=== PATIENT | female | born 1990 | race Caucasian/White ===

== ENCOUNTER 2016-09-23 18:10 | Emergency (ER) | payer OTHER ==
--- NOTE | 2016-09-23 18:24 | PDOC ---
Rapid Medical Evaluation Chief Complaint: Pain Time Seen by Provider: 09/23/16 18:22 Medical Evaluation: Allergies Allergy/AdvReac Type Severity Reaction Status Date / Time No Known Allergies Allergy Verified 09/23/16 18:22 09/23/16 18:23 I have performed a brief in-person evaluation of this patient. The patient presents with a chief complaint of: abd cramping, nausea, + test Pertinent physical exam findings: soft, nt, nd abd I have ordered the following:cbc, cmp, u-hcg, beta-hcg, The patient will proceed to the ED for further evaluation.
[2016-09-23 18:25] VITALS: BP 113/78; PULSE 79; TEMP 97.9; BMI 21.7
[2016-09-23 19:33] LABS: BASOPHIL 0.3 % (0-2.0); EOSINOPHIL 0.9 % (0-4.5); MCHC 33.9 g/dl (32.0-36.0); MEAN CELL VOLUME 88.6 fl (80-96); MEAN PLT VOLUME 8.5 fl (7.5-11.1); NEUTROPHILS 56.2 % (42.8-82.8); PLATELET COUNT 273 K/MM3 (134-434); WHITE BLOOD COUNT 6.9 K/mm3 (4.0-10.0)
[2016-09-23 19:56] LABS: ALBUMIN 3.7 g/dl (3.4-5.0); ANION GAP 6 (8-16); BILIRUBIN,TOTAL 0.3 mg/dL (0.2-1.0); CALCIUM 8.5 mg/dL (8.5-10.1); CO2 29 mmol/L (21-32); CREATININE 0.5 mg/dL (0.55-1.02); GLUCOSE,RANDOM 103 mg/dL (74-106); SGOT/AST 11 U/L (15-37); SGPT/ALT 14 U/L (12-78); TOT PROT 7.2 g/dl (6.4-8.2)
[2016-09-23 20:11] LABS: ALK PHOS 112 U/L (45-117)
--- NOTE | 2016-09-23 22:14 | PDOC ---
History of Present Illness - General Chief Complaint: Pain, Acute Stated Complaint: ABDOMINAL PAIN Time Seen by Provider: 09/23/16 18:22 History Source: Patient Exam Limitations: No Limitations - History of Present Illness Timing/Duration: 1 week Severity: mild Associated Symptoms: reports: denies symptoms Past History - Travel Traveled outside of the country in the last 30 days: No Close contact w/someone who was outside of country & ill: No - Past Medical History Allergies/Adverse Reactions: Allergies Allergy/AdvReac Type Severity Reaction Status Date / Time No Known Allergies Allergy Verified 09/23/16 18:22 Home Medications: Ambulatory Orders Ibuprofen [Motrin -] 800 mg PO Q6H #30 tablet 11/17/15 Anemia: No Asthma: No Cancer: No Cardiac Disorders: No Diabetes: No Disorders: Yes (CHRONIC UTI) HTN: No Hypercholesterolemia: No Kidney Stones: Yes Seizures: No Thyroid Disease: No - Immunization History Immunization Up to Date: Yes - Psycho/Social/Smoking Cessation Hx Anxiety: No Suicidal Ideation: No Smoking Status: No Smoking History: Never smoked Have you smoked in the past 12 months: No Number of Cigarettes Smoked Daily: 0 Hx Alcohol Use: No Drug/Substance Use Hx: No Substance Use Type: None Hx Substance Use Treatment: No Review of Systems - Review of Systems Able to Perform ROS?: Yes Comments:: 09/23/16 22:11 CONSTITUTIONAL: Absent: fever, chills, diaphoresis, generalized weakness, malaise, loss of appetite HEENT: Absent: rhinorrhea, nasal congestion, throat pain, throat swelling, difficulty swallowing, mouth swelling, ear pain, eye pain, visual Changes CARDIOVASCULAR: Absent: chest pain, loss of consciousness, palpitations, irregular heart rate, peripheral edema RESPIRATORY: Absent: cough, shortness of breath, dyspnea with exertion, orthopnea, wheezing, stridor, hemoptysis GASTROINTESTINAL: +Pelvic cramping Absent: abdominal pain, abdominal distension, nausea, vomiting, diarrhea, constipation, melena, hematochezia GENITOURINARY: Absent: dysuria, frequency, urgency, hesitancy, hematuria, flank pain, genital pain MUSCULOSKELETAL: Absent: myalgia, arthralgia, joint swelling SKIN: Absent: rash, itching, pallor HEMATOLOGIC/IMMUNOLOGIC: Absent: easy bleeding, easy bruising, lymphadenopathy, frequent infections ENDOCRINE: Absent: unexplained weight gain, unexplained weight loss, heat intolerance, cold intolerance NEUROLOGIC: Absent: headache, focal weakness or paresthesias, dizziness, unsteady gait, seizure, mental status changes, bladder or bowel incontinence PSYCHIATRIC: Absent: anxiety, depression, suicidal or homicidal ideation, hallucinations. Is the patient limited Italian proficient: No *Physical Exam - Vital Signs Last Vital Signs Temp Pulse Resp BP Pulse Ox 97.9 F 79 19 113/78 100 09/23/16 18:22 09/23/16 18:22 09/23/16 18:22 09/23/16 18:22 09/23/16 18:22 - Physical Exam Comments: 09/23/16 22:12 GENERAL: Well developed, well nourished. Awake and alert. No acute distress. HEENT: Normocephalic, atraumatic. PERRLA, EOMI. No conjunctival pallor. Sclera are non- icteric. Moist mucous membranes. Oropharynx is clear. NECK: Supple. Full ROM. No JVD. Carotid pulses 2+ and symmetric, without bruits. No thyromegaly. No lymphadenopathy. CARDIOVASCULAR: Regular rate and rhythm. No murmurs, rubs, or gallops. Distal pulses are 2+ and symmetric. PULMONARY: No evidence of respiratory distress. Lungs clear to auscultation bilaterally. No wheezing, rales or rhonchi. ABDOMINAL: Soft. Non-tender. Non-distended. No rebound or guarding. No organomegaly. Normoactive bowel sounds. MUSCULOSKELETAL Normal range of motion at all joints. No bony deformities or tenderness. No CVA tenderness. EXTREMITIES: No cyanosis. No clubbing. No edema. No calf tenderness. SKIN: Warm and dry. Normal capillary refill. No rashes. No jaundice. NEUROLOGICAL: Alert, awake, appropriate. Cranial nerves 2-12 intact. No deficits to light touch and temperature in face, upper extremities and lower extremities. No motor deficits in the in face, upper extremities and lower extremities. Normoreflexic in the upper and lower extremities. Normal speech. Toes are down- going bilaterally. Gait is normal without ataxia. PSYCHIATRIC: Cooperative. Good eye contact. Appropriate mood and affect. Pelvic: External genitalia normal without lesions. Vaginal vault is clear without blood or discharge. Cervix is long and closed. ED Treatment Course - LABORATORY CBC & Chemistry Diagram: 09/23/16 19:20 09/23/16 19:20 - ADDITIONAL ORDERS Additional order review: Laboratory Results 09/23/16 09/23/16 19:20 19:20 Sodium 139 Potassium 3.7 Chloride 104 Carbon Dioxide 29 Anion Gap 6 L BUN 12 Creatinine 0.5 L Creat Clearance w eGFR > 60 Random Glucose 103 Calcium 8.5 Total Bilirubin 0.3 D AST 11 L D ALT 14 D Alkaline Phosphatase 112 D Total Protein 7.2 Albumin 3.7 Beta HCG, Quant 12636.6 Urine HCG, Qual Positive 09/23/16 19:20 RBC 4.16 MCV 88.6 MCHC 33.9 RDW 13.0 MPV 8.5 Neutrophils % 56.2 Lymphocytes % 34.7 Monocytes % 7.9 Eosinophils % 0.9 Basophils % 0.3 *DC/Admit/Observation/Transfer Diagnosis at time of Disposition: Threatened - Discharge Dispostion Condition at time of disposition: Stable - Referrals Referrals: Jaguar Chavez [Primary Care Provider] - Nubia Benítez MD [Staff Physician] - - Patient Instructions Printed Discharge Instructions: DI for Threatened Additional Instructions: Pelvic rest Tylenol as needed for pain Follow up with your Obstetric or the one listed on your discharge Return to the ER for severe/persistent/worsening symptoms, vaginal bleed As discussed in length, You a preliminary transvaginal ultrasound this evening shows an estimated gestation age of approximately 5 weeks and 4 days but a heart rate was not detected. Sometimes, this could be due to an early . It is strongly advisable for you to return in 48 hours for a repeat beta [place] [address].6 LMP 08/10/2016 [id number] Progress Note - Progress Note Progress Note: LMP 08/10/2016 25-year-old female presents to the emergency department complaining of lower pelvic cramping times one week. Discomfort is described as 3/10 nonradiating intermittent cramping with nausea but denies any fever, chills, vomiting, chest pain, shortness of breath, abdominal pains, vaginal bleed, flank pains or urinary symptoms: Frequency/urgency/hesitancy, hematuria. Patient states she took a home tests 2 days ago and discovered that she was .
== END 2016-09-23 22:53 | disposition home or self-care (01) ==
LOC: JER 18:10
DX: O20.0 Threatened abortion (principal); Z3A.01 Less than 8 weeks gestation of pregnancy
CPT/HCPCS: 36415; 76801-TC; 80053; 84702; 84703; 85025; 99282-25

== ENCOUNTER 2016-11-09 16:18 | Emergency (ER) | payer OTHER ==
[2016-11-09 16:22] VITALS: BMI 21.3
--- NOTE | 2016-11-09 16:48 | PDOC ---
History of Present Illness - History of Present Illness Initial Comments: 11/09/16 17:23 Patient is a 25 year old female (12 weeks) with significant medical hx of nephrolithiasis s/p lithotripsy (2013) who is presenting to the ED with one day of shortness of breath, headache, and palpitations. The patient states that she had a sudden onset of her symptoms around 1:30 PM today accompanied with severe nausea. She denies any fevers, chills, vomiting, diarrhea, dysuria, loss of consciousness, and chest pain. The patient has a secondary complaint of suprapubic pain that has been ongoing since the start of her but denies any vaginal bleeding or discharge. The patients is being followed at [facility]. <Jillian Ambrosio - Last Filed: 11/09/16 18:36> <Raquel Walters - Last Filed: 11/09/16 21:47> - General Chief Complaint: Pain Stated Complaint: STOMACH PAIN/12 WKS Time Seen by Provider: 11/09/16 16:38 Past History <Jillian Ambrosio - Last Filed: 11/09/16 18:36> - Past Medical History Anemia: No Asthma: No Cancer: No Cardiac Disorders: No Diabetes: No Disorders: Yes (CHRONIC UTI) HTN: No Hypercholesterolemia: No Kidney Stones: Yes Seizures: No Thyroid Disease: No - Immunization History Immunization Up to Date: Yes - Psycho/Social/Smoking Cessation Hx Anxiety: No Suicidal Ideation: No Smoking Status: No Smoking History: Never smoked Have you smoked in the past 12 months: No Number of Cigarettes Smoked Daily: 0 Information on smoking cessation initiated: No Hx Alcohol Use: No Drug/Substance Use Hx: No Substance Use Type: None Hx Substance Use Treatment: No <Raquel Walters - Last Filed: 11/09/16 21:47> - Past Medical History Allergies/Adverse Reactions: Allergies Allergy/AdvReac Type Severity Reaction Status Date / Time No Known Allergies Allergy Verified 11/09/16 16:22 Home Medications: Ambulatory Orders Vits #93/Iron Fum/FA [ Formula Tablet] 1 each PO DAILY Review of Systems - Review of Systems Comments:: 11/09/16 17:24 CONSTITUTIONAL: Absent: fever, chills, diaphoresis, generalized weakness, malaise, loss of appetite HEENT: Absent: rhinorrhea, nasal congestion, throat pain, throat swelling, difficulty swallowing, mouth swelling, ear pain, eye pain, visual changes CARDIOVASCULAR: Present: palpitations Absent: chest pain, syncope, irregular heart rate, lightheadedness, peripheral edema RESPIRATORY: Present: shortness of breath Absent: cough, dyspnea with exertion, orthopnea, wheezing, stridor, hemoptysis GASTROINTESTINAL: Present: nausea, suprapubic pain Absent: abdominal distension, vomiting, diarrhea, constipation, melena, hematochezia GENITOURINARY: Absent: dysuria, frequency, urgency, hesitancy, hematuria, flank pain, genital pain MUSCULOSKELETAL: Absent: myalgia, arthralgia, joint swelling SKIN: Absent: rash, itching, pallor HEMATOLOGIC/IMMUNOLOGIC: Absent: easy bleeding, easy bruising, lymphadenopathy, frequent infections ENDOCRINE: Absent: unexplained weight gain, unexplained weight loss, heat intolerance, cold intolerance NEUROLOGIC: Present: headache Absent: focal weakness or paresthesia, dizziness, unsteady gait, seizure, mental status changes, bladder or bowel incontinence. PSYCHIATRIC: Absent: anxiety, depression, suicidal or homicidal ideation, hallucinations <Jillian Ambrosio - Last Filed: 11/09/16 18:36> *Physical Exam - Vital Signs Last Vital Signs Temp Pulse Resp BP Pulse Ox 98 F 81 18 109/50 98 11/09/16 16:19 11/09/16 16:19 11/09/16 16:19 11/09/16 16:19 11/09/16 16:19 - Physical Exam Comments: 11/09/16 17:50 GENERAL: Well developed, well nourished. Awake and alert. No acute distress. HEENT: Normocephalic, atraumatic. PERRLA, EOMI. No conjunctival pallor. Sclera are non- icteric. Moist mucous membranes. Oropharynx is clear. NECK: Supple. Full ROM. No JVD. Carotid pulses 2+ and symmetric, without bruits. No thyromegaly. No lymphadenopathy. CARDIOVASCULAR: Regular rate and rhythm. No murmurs, rubs, or gallops. Distal pulses are 2+ and symmetric. PULMONARY: No evidence of respiratory distress. Lungs clear to auscultation bilaterally. No wheezing, rales or rhonchi. ABDOMINAL: Soft. Suprapubic tenderness. Non-distended. No rebound or guarding. No organomegaly. Normoactive bowel sounds. MUSCULOSKELETAL: Normal range of motion at all joints. No bony deformities or tenderness. No CVA tenderness. EXTREMITIES: No cyanosis. No clubbing. No edema. No calf tenderness. SKIN: Warm and dry. Normal capillary refill. No rashes. No jaundice. NEUROLOGICAL: Alert, awake, appropriate. Cranial nerves 2-12 intact. Normal speech. Gait is normal without ataxia. PSYCHIATRIC: Cooperative. Good eye contact. Appropriate mood and affect. <Jillian Ambrosio - Last Filed: 11/09/16 18:36> - Vital Signs Last Vital Signs Temp Pulse Resp BP Pulse Ox 98 F 81 18 109/50 98 11/09/16 16:19 11/09/16 16:19 11/09/16 16:19 11/09/16 16:19 11/09/16 16:19 <Raquel Walters - Last Filed: 11/09/16 21:47> Heart Score/ECG Review #1 11/09/16 18:06 Sinus rhythm at 73 bpm with short SC with premature atrial complexes Otherwise normal ECG <Jillian Ambrosio - Last Filed: 11/09/16 18:36> ED Treatment Course - ADDITIONAL ORDERS Additional order review: Laboratory Results 11/09/16 17:00 Urine Color Yellow Urine Appearance Slcloudy Urine pH 6.0 Ur Specific [place] 1.017 Urine Protein Negative Urine Glucose (UA) Negative Urine Ketones Negative Urine Blood Negative Urine Nitrite Negative Urine Bilirubin Negative Urine Urobilinogen Negative Ur Leukocyte Esterase 1+ H - RADIOLOGY Radiograph Interpretation: 11/09/16 18:37 Obstetrical US Impression: Single live intrauterine , as described above with estimated gestational age of 12 weeks. Reported By: Leonie Mckeon MD <Jillian Ambrosio - Last Filed: 11/09/16 18:36> - LABORATORY CBC & Chemistry Diagram: 11/09/16 18:15 11/09/16 18:15 <Raquel Walters - Last Filed: 11/09/16 21:47> Medical Decision Making - Medical Decision Making 11/09/16 17:01 25 yo female reports 12 week Today she had an episode of sudden palpitaions ,sob.nausea,dizziness -ekj showed PAC and then accelerated junctional rhythm on her ekg -spoke w [facility] and cardiology adn they requested transfer. -FAMILY REQUESTED [facility] -she has c/o pelvic pain -pelvic US showed SL IUP 12 weeks with good heart tones -no vag bleeding and no flank pain PMH kidney stones s/p lithotripsy several years ago Dr Drake - 11/09/16 21:22 spoke with patient care technician who accepted pt for transfer to [facility] adult ER , cardiology attending accepting is Dr No 11/09/16 21:37 -pt signed consent for transfer <Raquel Walters - Last Filed: 11/09/16 21:47> *DC/Admit/Observation/Transfer - Attestations Scribe Attestion: 11/09/16 17:51 Documentation prepared by Jillian Ambrosio, acting as medical office receptionist assistant for Raquel Walters MD. <Jillian Ambrosio - Last Filed: 11/09/16 18:36> - Transfer to Acute Care Facility Receiving Facility: [facility]. Accepting Physician:: DR NO <Raquel Walters - Last Filed: 11/09/16 21:47> Diagnosis at time of Disposition: Heart palpitations, Accelerated atrioventricular junctional rhythm Qualifiers: Weeks of gestation: 12 weeks Qualified Code(s): Z3A.12 - 12 weeks gestation of - Discharge Dispostion Disposition: TRANSFER ACUTE CARE/OTHER HOSP - Referrals Referrals: Jaguar Chavez [Primary Care Provider] - - Patient Instructions
[2016-11-09 17:12] LABS: URINE APPEARANCE SLCLOUDY; URINE BILIRUBIN NEGATIVE (NEGATIVE); URINE BLOOD NEGATIVE (NEGATIVE); URINE COLOR YELLOW; URINE GLUCOSE (UA) NEGATIVE (NEGATIVE); URINE KETONE NEGATIVE (NEGATIVE); URINE NITRITE NEGATIVE (NEGATIVE); URINE PROTEIN NEGATIVE (NEGATIVE); URINE UROBILINOGEN NEGATIVE E.U./dl (0.2-1.0)
[2016-11-09 17:18] LABS: URINE LEUK ESTERASE 1+ (NEGATIVE)
[2016-11-09 17:22] LABS: URINE MUCUS RARE; URINE RBC 4 /hpf (0-3); URINE WBC 7 /hpf (3-5)
[2016-11-09 18:42] LABS: BASOPHIL 0.5 % (0-2.0); EOSINOPHIL 0.5 % (0-4.5); MCH 30.2 pg (25.7-33.7); MCHC 33.8 g/dl (32.0-36.0); MEAN CELL VOLUME 89.2 fl (80-96); MEAN PLT VOLUME 8.6 fl (7.5-11.1); PLATELET COUNT 266 K/MM3 (134-434); RDW 13.8 % (11.6-15.6); WHITE BLOOD COUNT 7.6 K/mm3 (4.0-10.0)
[2016-11-09 19:10] LABS: ALBUMIN 3.5 g/dl (3.4-5.0); ANION GAP 7 (8-16); CALCIUM 8.6 mg/dL (8.5-10.1); CO2 26 mmol/L (21-32); GLUCOSE,RANDOM 74 mg/dL (74-106); SGPT/ALT 24 U/L (12-78)
[2016-11-09 19:13] LABS: ALK PHOS 84 U/L (45-117); BILIRUBIN,TOTAL 0.2 mg/dL (0.2-1.0); CREATININE 0.3 mg/dL (0.55-1.02)
[2016-11-09 19:16] LABS: SGOT/AST 23 U/L (15-37)
[2016-11-09 23:00] VITALS: BP 114/57; PULSE 80; TEMP 98.3
--- NOTE | 2016-11-10 08:12 | EKG ---
Test Reason : Blood Pressure : / mmHG Vent. Rate : 071 BPM Atrial Rate : 071 BPM P-R Int : 000 ms QRS Dur : 080 ms QT Int : 392 ms P-R-T Axes : 000 053 039 degrees QTc Int : 425 ms SINUS RHYTHM WITH PREMATURE ATRIAL COMPLEXES ABNORMAL ECG WHEN COMPARED WITH ECG OF 09-NOV-2016 17:10, NO SIGNIFICANT CHANGE WAS FOUND Confirmed by RONALD LAWRENCE MD ([id number]) on 11/10/2016 8:11:52 AM Referred By: Confirmed By:RONALD LAWRENCE MD
--- NOTE | 2016-11-10 08:13 | EKG ---
Test Reason : Blood Pressure : / mmHG Vent. Rate : 073 BPM Atrial Rate : 064 BPM P-R Int : 094 ms QRS Dur : 086 ms QT Int : 396 ms P-R-T Axes : 026 035 048 degrees QTc Int : 436 ms SINUS RHYTHM WITH SHORT SC WITH PREMATURE ATRIAL COMPLEXES OTHERWISE NORMAL ECG NO PREVIOUS ECGS AVAILABLE Confirmed by HOWARD FRIEND, RONALD ([id number]) on 11/10/2016 8:12:49 AM Referred By: Confirmed By:RONALD LAWRENCE MD
== END 2016-11-09 23:00 | disposition short-term general hospital (02) ==
LOC: JER 16:18
DX: O99.411 Diseases of the circulatory system complicating pregnancy, first trimester (principal); I49.8 Other specified cardiac arrhythmias; Z3A.12 12 weeks gestation of pregnancy
CPT/HCPCS: 36415; 76801-TC; 80053; 81003; 81015; 83735; 85025; 87086; 87186; 93005; 93010; 99284-25

== ENCOUNTER 2017-05-26 14:14 | Inpatient (IN) | payer OTHER ==
[2017-05-26] MEDS ORDERED: DINOPROSTONE 10 MG VAGINAL SUPPOSITORY VG ONE (14:30)
[2017-05-26] MEDS ORDERED: DEXTROSE 5%-LACTATED RINGERS 1,000 ML IV SCH (14:30)
[2017-05-26 16:25] LABS: BASOPHIL 0.5 % (0-2.0); EOSINOPHIL 0.3 % (0-4.5); MCH 29.7 pg (25.7-33.7); MCHC 33.9 g/dl (32.0-36.0); MEAN CELL VOLUME 87.6 fl (80-96); MEAN PLT VOLUME 9.7 fl (7.5-11.1); NEUTROPHILS 68.6 % (42.8-82.8); PLATELET COUNT 225 K/MM3 (134-434); RDW 13.9 % (11.6-15.6); WHITE BLOOD COUNT 7.4 K/mm3 (4.0-10.0)
[2017-05-26 16:38] LABS: INR 0.96 (0.82-1.09); PROTHROMBIN TIME (PATIENT) 10.8 SEC (9.98-11.88)
[2017-05-26 16:40] LABS: ACTIVATED PTT 25.8 SECONDS (26.9-34.4)
[2017-05-26 16:45] LABS: ANION GAP 11 (8-16); CALCIUM 8.4 mg/dL (8.5-10.1); CO2 23 mmol/L (21-32); CREATININE 0.5 mg/dL (0.55-1.02); GLUCOSE,RANDOM 71 mg/dL (74-106)
[2017-05-26 17:02] VITALS: BMI 26.3
--- NOTE | 2017-05-26 19:48 | HP ---
Past Medical History - Primary Care Physician PCP:: Toño Hernandez - Admission Chief Complaint: 41 weeks, for cervidil induction History of Present Illness: 26 yo , 41.1 weeks, requesting induction of labor, rba discussed , cx closed 25 vx -2 mi, fhr cat 1 History Source: Patient Limitations to Obtaining History: No Limitations - Past Medical History Renal/: Yes: Renal Calculi ...: 2 ...Para: 1 ...Term: 1 ...: 0 ...Spon : 0 ...Induced : 0 ...Multiple Gestation: 0 ...LMP: 08/11/16 ... Weeks Gestation by Dates: 41.1 ...EDC by Dates: 05/18/17 ...EDC by Sono: 05/18/17 - Past Surgical History Past Surgical History: Yes: None Hx Myomectomy: No Hx Transabdominal Cerclage: No - Smoking History Smoking history: Never smoked Have you smoked in the past 12 months: No Aproximately how many cigarettes per day: 0 - Alcohol/Substance Use Hx Alcohol Use: No History of Substance Use: reports: None - Social History Usual Living Arrangement: Yes: With Spouse ADL: Independent History of Recent Travel: No Home Medications - Allergies Allergies/Adverse Reactions: Allergies Allergy/AdvReac Type Severity Reaction Status Date / Time No Known Allergies Allergy Verified 05/26/17 14:51 - Home Medications Home Medications: Ambulatory Orders Vits #93/Iron Fum/FA [ Formula Tablet] 1 each PO DAILY Ferrous Sulfate [Feosol] 1 tablet PO DAILY 04/04/17 Review of Systems - Review of Systems Constitutional: reports: No Symptoms Eyes: reports: No Symptoms HENT: reports: No Symptoms Neck: reports: No Symptoms Cardiovascular: reports: No Symptoms Respiratory: reports: No Symptoms Gastrointestinal: reports: No Symptoms Genitourinary: reports: No Symptoms Breasts: reports: No Symptoms Reported Musculoskeletal: reports: No Symptoms Integumentary: reports: No Symptoms Neurological: reports: No Symptoms Endocrine: reports: No Symptoms Hematology/Lymphatic: reports: No Symptoms Psychiatric: reports: No Symptoms Physical Exam - Maternity Vital Signs: Vital Signs Temperature 98.1 F 05/26/17 17:57 Pulse Rate 88 05/26/17 19:00 Respiratory Rate 20 05/26/17 19:00 Blood Pressure 126/62 05/26/17 19:00 O2 Sat by Pulse Oximetry (%) Constitutional: Yes: Well Nourished, No Distress, Calm Eyes: Yes: WNL, Conjunctiva Clear, EOM Intact HENT: Yes: WNL, Atraumatic, Normocephalic Neck: Yes: WNL, Supple, Trachea Midline Cardiovascular: Yes: WNL, Regular Rate and Rhythm Breast(s): Yes: WNL - Abdominal Exam/OB Fundal Height: 40 Number of Fetuses: Single Presentation: Vertex Contractions: No Intensity: Unaware Monitor Mode: External Heart Rate Location: [facility] Category: I Accelerations: Uniform Decelerations: None - Vaginal Exam/OB Vaginal Bleediing: No Speculum Exam: No Dilatation (cm): closed Effacement (%): 25 Amniotic Membrane Status: Intact Presentation: Vertex/Position Station: -2 - Physical Exam Musculoskeletal: Yes: WNL Extremities: Yes: WNL Edema: LLE: Trace, RLE: Trace Deep Tendon Reflex Grade: Normal +2 ...Motor Strength: WNL Psychiatric: Yes: WNL - Labs Lab Results: CBC, BMP 05/26/17 15:30 05/26/17 15:30 Hemorrhage Risk Assessment - Risk Factors Medium Risk Factors: Yes: None High Risk Factors: Yes: None Risk Score: 1 Risk Level: Medium Risk Problem List - Problems (1) with 41 completed weeks gestation Code(s): Z3A.41 - 41 WEEKS GESTATION OF (2) Elective induction of labor planned Code(s): FKC7065 - Assessment/Plan plan admit, cervidil induction, risks discussed
[2017-05-26] MEDS ORDERED: BUTORPHANOL TARTRATE 1 MG/ML VIAL IVPUSH ONE (23:35)
[2017-05-26] MEDS ORDERED: PROMETHAZINE HCL 25 MG/1 ML VIAL IVPUSH ONE (23:35)
--- NOTE | 2017-05-27 01:39 | PN ---
Progress Note (short form) - Note Progress Note: cx 2 cm. 70 vx -2 mi, fhr cat 1 contraction q 3 min, wants pain meds Problem List - Problems (1) with 41 completed weeks gestation Code(s): Z3A.41 - 41 WEEKS GESTATION OF (2) Elective induction of labor planned Code(s): [id number] -
[2017-05-27] MEDS ORDERED: OXYTOCIN 15 UNITS/ LR 250 ML 15 UNIT/250 ML INFUS.BAG IVPB SCH (04:00)
[2017-05-27] MEDS ORDERED: ELECTROLYTE-148 SOLN 1,000 ML IV SCH (04:30)
[2017-05-27] MEDS: FENTANYL/BUPIVACAINE/NS/PF - PCEA - 50 ML DISP.SYRIN EP SCH (05:00)
[2017-05-27] MEDS ORDERED: METHYLERGONOVINE MALEATE 0.2 MG/1 ML AMP IM PRN (08:38)
[2017-05-27] MEDS ORDERED: BISACODYL 10 MG SUPP.RECT RC PRN (08:38)
[2017-05-27] MEDS ORDERED: BENZOCAINE 28 GM HEMORRHOIDAL OINTMENT TP PRN (08:38)
[2017-05-27] MEDS ORDERED: WITCH HAZEL 50% (TUCKS) 40 PAD/JAR PAD TP PRN (08:38)
[2017-05-27] MEDS ORDERED: BENZOCAINE 20% 57 GM BOTTLE TP PRN (08:38)
[2017-05-27] MEDS ORDERED: D5W-LR W/ 20 UNITS OXYTOCIN 20 UNIT/1,000 ML INFUS.BAG IV SCH (08:45)
[2017-05-27 09:13] LABS: ARTERIAL BLOOD GAS BASE EXCESS -7.5 meq/l (-2-2); ARTERIAL BLOOD GAS HCO3 22.8 meq/L (22-26)
[2017-05-27] MEDS: IBUPROFEN 600 MG TABLET (FP) PO PRN ×3 (09:16→19:32)
[2017-05-27] MEDS: ACETAMINOPHEN 325 MG TABLET (FP) PO PRN ×3 (09:16→19:33)
[2017-05-27 09:20] LABS: ARTERIAL BLOOD GAS pH 7.16 (7.35-7.45)
[2017-05-27 09:21] LABS: ARTERIAL BLD GAS O2 SATURATION 45.1 % (90-98.9); ARTERIAL BLOOD GAS PO2 28.7 mmHg (80-100)
[2017-05-27 09:32] LABS: VENOUS BLOOD GAS HCO3 19.4 meq/L (19-25); VENOUS PH 7.33 (7.32-7.42)
[2017-05-27] MEDS: FERROUS SO4 325 MG TABLET (FP) PO SCH ×2 (11:14→21:37)
[2017-05-27] MEDS: PRENATAL VITAMINS W/ FOLIC ACID TABLET (FP) PO SCH (11:14)
[2017-05-27] MEDS ORDERED: SODIUM CHLORIDE 500 ML IV ONE (11:30)
--- NOTE | 2017-05-27 17:05 | PN ---
Progress Note (short form) - Note Progress Note: had fever of 102 , asymptomatic, doubt infection , most likly dehydration vs epidural related temp. will do blood culture, hydration and observation , if spikes again will start antibiotics. Problem List - Problems (1) with 41 completed weeks gestation Code(s): Z3A.41 - 41 WEEKS GESTATION OF (2) Elective induction of labor planned Code(s): OAH5461 -
[2017-05-28] MEDS: ACETAMINOPHEN 325 MG TABLET (FP) PO PRN ×4 (04:14→21:48)
[2017-05-28] MEDS: IBUPROFEN 600 MG TABLET (FP) PO PRN ×4 (04:15→21:47)
[2017-05-28] MEDS: FENTANYL/BUPIVACAINE/NS/PF - PCEA - 50 ML DISP.SYRIN EP SCH (05:40)
[2017-05-28 07:38] LABS: BASOPHIL 0.4 % (0-2.0); EOSINOPHIL 0.3 % (0-4.5); MEAN CELL VOLUME 87.9 fl (80-96); MEAN PLT VOLUME 9.3 fl (7.5-11.1); NEUTROPHILS 86.9 % (42.8-82.8); PLATELET COUNT 167 K/MM3 (134-434); RDW 13.9 % (11.6-15.6); WHITE BLOOD COUNT 15.8 K/mm3 (4.0-10.0)
[2017-05-28] MEDS: FERROUS SO4 325 MG TABLET (FP) PO SCH ×2 (09:41→21:47)
[2017-05-28] MEDS: PRENATAL VITAMINS W/ FOLIC ACID TABLET (FP) PO SCH (09:41)
--- NOTE | 2017-05-28 12:42 | PN ---
Post Progress Note Post Day: 1 Type of Delivery: Vital Signs: Vital Signs Temperature 100.1 F H 05/28/17 11:27 Pulse Rate 78 05/28/17 10:00 Respiratory Rate 20 05/28/17 10:00 Blood Pressure 131/55 05/28/17 10:00 O2 Sat by Pulse Oximetry (%) 100 05/27/17 09:15 Breast Exam: Yes: Soft Uterus: Yes: Fundus Firm, Other (mildly tender) Abdomen/GI: Yes: Abdomen soft Lochia: Yes: Serosa Lochia, amount: Small Extremities: Yes: Calves non-tender Perineum: Yes: Intact Activity: Ambulating - Labs Labs: CBC WBC 15.8 K/mm3 (4.0-10.0) H D 05/28/17 07:06 RBC 3.02 M/mm3 (3.60-5.2) L 05/28/17 07:06 Hgb 8.7 GM/dL (10.7-15.3) L D 05/28/17 07:06 Hct 26.5 % (32.4-45.2) L D 05/28/17 07:06 MCV 87.9 fl (80-96) 05/28/17 07:06 MCH 29.0 pg (25.7-33.7) 05/28/17 07:06 MCHC 33.0 g/dl (32.0-36.0) 05/28/17 07:06 RDW 13.9 % (11.6-15.6) 05/28/17 07:06 Plt Count 167 K/MM3 (134-434) D 05/28/17 07:06 MPV 9.3 fl (7.5-11.1) 05/28/17 07:06 Neutrophils % 86.9 % (42.8-82.8) H D 05/28/17 07:06 Lymphocytes % 5.7 % (8-40) L D 05/28/17 07:06 Monocytes % 6.7 % (3.8-10.2) 05/28/17 07:06 Eosinophils % 0.3 % (0-4.5) 05/28/17 07:06 Basophils % 0.4 % (0-2.0) 05/28/17 07:06 Other Findings, Remarks: right cva tenderness Assessment/Plan Pt PPD#1 s/p . Pt with fever, recently fever chills -will treat for pyelo given flank pain -rpt cultures if spikes again -continue close observation Dr. Saeed
[2017-05-28] MEDS ORDERED: CEFTRIAXONE 1 GM in DEXTROSE 5%-WATER - 100 ML IVPB SCH (12:45)
[2017-05-28] MEDS: CEFTRIAXONE 1 G/50 ML PREMIX 50 ML IVPB SCH (14:48)
[2017-05-28] MEDS ORDERED: SENNOSIDES/DOCUSATE COMBO (SENNA PLUS) TABLET (UD) PO PRN (22:00)
[2017-05-29] MEDS: oxyCODONE HCL 5 MG TABLET PO PRN ×2 (00:50→16:38)
[2017-05-29] MEDS: ACETAMINOPHEN 325 MG TABLET (FP) PO PRN ×4 (02:13→20:21)
[2017-05-29] MEDS: IBUPROFEN 600 MG TABLET (FP) PO PRN ×4 (02:14→20:22)
[2017-05-29] MEDS: FERROUS SO4 325 MG TABLET (FP) PO SCH ×2 (09:55→22:14)
[2017-05-29] MEDS: PRENATAL VITAMINS W/ FOLIC ACID TABLET (FP) PO SCH (09:56)
[2017-05-29] MEDS ORDERED: cefTRIAXone 1 GM/50 ML BAG (PRE-DOCKED) IVPB SCH (10:00)
[2017-05-29] MEDS ORDERED: CEFTRIAXONE 1 GM/50 ML PREMIX IVPB SCH (10:00)
[2017-05-29] MEDS: CEFTRIAXONE 1 G/50 ML PREMIX 50 ML IVPB SCH (10:49)
--- NOTE | 2017-05-29 16:17 | PN ---
Post Progress Note Post Day: 2 Type of Delivery: Vital Signs: Vital Signs Temperature 98.3 F 05/29/17 14:00 Pulse Rate 70 05/29/17 14:00 Respiratory Rate 20 05/29/17 14:00 Blood Pressure 119/55 05/29/17 14:00 O2 Sat by Pulse Oximetry (%) 100 05/29/17 09:00 Breast Exam: Yes: Soft Uterus: Yes: Fundus Firm Abdomen/GI: Yes: Abdomen soft, Tolerating PO Lochia, amount: Small Extremities: Yes: Calves non-tender Perineum: Yes: Intact Activity: Ambulating - Labs Labs: CBC WBC 15.8 K/mm3 (4.0-10.0) H D 05/28/17 07:06 RBC 3.02 M/mm3 (3.60-5.2) L 05/28/17 07:06 Hgb 8.7 GM/dL (10.7-15.3) L D 05/28/17 07:06 Hct 26.5 % (32.4-45.2) L D 05/28/17 07:06 MCV 87.9 fl (80-96) 05/28/17 07:06 MCH 29.0 pg (25.7-33.7) 05/28/17 07:06 MCHC 33.0 g/dl (32.0-36.0) 05/28/17 07:06 RDW 13.9 % (11.6-15.6) 05/28/17 07:06 Plt Count 167 K/MM3 (134-434) D 05/28/17 07:06 MPV 9.3 fl (7.5-11.1) 05/28/17 07:06 Neutrophils % 86.9 % (42.8-82.8) H D 05/28/17 07:06 Lymphocytes % 5.7 % (8-40) L D 05/28/17 07:06 Monocytes % 6.7 % (3.8-10.2) 05/28/17 07:06 Eosinophils % 0.3 % (0-4.5) 05/28/17 07:06 Basophils % 0.4 % (0-2.0) 05/28/17 07:06 Assessment/Plan cx shows e coli continue abx afebril since midnight chceck cbc in am
[2017-05-30] MEDS: oxyCODONE HCL 5 MG TABLET PO PRN ×3 (02:04→14:03)
[2017-05-30 07:54] LABS: BASOPHIL 0.2 % (0-2.0); EOSINOPHIL 0.9 % (0-4.5); MCH 29.1 pg (25.7-33.7); MCHC 33.2 g/dl (32.0-36.0); MEAN CELL VOLUME 87.6 fl (80-96); NEUTROPHILS 73.2 % (42.8-82.8); PLATELET COUNT 209 K/MM3 (134-434); RDW 14.3 % (11.6-15.6)
[2017-05-30] MEDS: ACETAMINOPHEN 325 MG TABLET (FP) PO PRN ×3 (08:13→22:14)
--- NOTE | 2017-05-30 08:59 | PN ---
Post Progress Note - Subjective Subjective: had a 100.6 yesterday at 6pm will observe during the day with possible dc this pm Type of Delivery: Vital Signs: Vital Signs Temperature 98.6 F 05/30/17 08:19 Pulse Rate 73 05/30/17 08:19 Respiratory Rate 20 05/30/17 08:19 Blood Pressure 148/74 05/30/17 08:19 O2 Sat by Pulse Oximetry (%) 100 05/29/17 09:00 - Labs Labs: CBC WBC 7.0 K/mm3 (4.0-10.0) D 05/30/17 07:00 RBC 3.33 M/mm3 (3.60-5.2) L 05/30/17 07:00 Hgb 9.7 GM/dL (10.7-15.3) L D 05/30/17 07:00 Hct 29.2 % (32.4-45.2) L 05/30/17 07:00 MCV 87.6 fl (80-96) 05/30/17 07:00 MCH 29.1 pg (25.7-33.7) 05/30/17 07:00 MCHC 33.2 g/dl (32.0-36.0) 05/30/17 07:00 RDW 14.3 % (11.6-15.6) 05/30/17 07:00 Plt Count 209 K/MM3 (134-434) D 05/30/17 07:00 MPV 9.0 fl (7.5-11.1) 05/30/17 07:00 Neutrophils % 73.2 % (42.8-82.8) 05/30/17 07:00 Lymphocytes % 17.4 % (8-40) D 05/30/17 07:00 Monocytes % 8.3 % (3.8-10.2) 05/30/17 07:00 Eosinophils % 0.9 % (0-4.5) D 05/30/17 07:00 Basophils % 0.2 % (0-2.0) 05/30/17 07:00
[2017-05-30] MEDS: PRENATAL VITAMINS W/ FOLIC ACID TABLET (FP) PO SCH (09:53)
[2017-05-30] MEDS: FERROUS SO4 325 MG TABLET (FP) PO SCH ×2 (09:54→22:17)
[2017-05-30] MEDS: CEFTRIAXONE 1 G/50 ML PREMIX 50 ML IVPB SCH (09:59)
[2017-05-30 11:57] LABS: ALBUMIN 1.8 g/dl (3.4-5.0); ALK PHOS 167 U/L (45-117); ANION GAP 10 (8-16); BILIRUBIN,TOTAL 0.4 mg/dL (0.2-1.0); CALCIUM 7.1 mg/dL (8.5-10.1); CO2 24 mmol/L (21-32); CREATININE 0.4 mg/dL (0.55-1.02); GLUCOSE,RANDOM 82 mg/dL (74-106); SGOT/AST 198 U/L (15-37); SGPT/ALT 88 U/L (12-78); TOT PROT 4.9 g/dl (6.4-8.2)
[2017-05-30] MEDS ORDERED: oxyCODONE HCL 5 MG TABLET ONE (14:02)
--- NOTE | 2017-05-30 16:27 | CONSULT ---
Consultation: REQUESTING PROVIDER: Dr. Hernandez CONSULT REQUEST: We have been asked to medically evaluate this patient for ( fever, cough, flank pain). HISTORY OF PRESENT ILLNESS: Patient is a 26 year old, grava 2, induced at 41 weeks, post day #3. Who was evaluated today for persistent post fever, right flank pain and dry cough with orthopnea. REVIEW OF SYSTEMS: CONSTITUTIONAL: Absent: chills, diaphoresis, generalized weakness, malaise, loss of appetite, weight change HEENT: Absent: rhinorrhea, nasal congestion, difficulty swallowing, mouth swelling, ear pain, eye pain, visual changes CARDIOVASCULAR: Absent: chest pain, syncope, palpitations, irregular heart rate, lightheadedness , peripheral edema RESPIRATORY: Absent: wheezing, stridor, hemoptysis GASTROINTESTINAL: Absent: abdominal pain, abdominal distension, nausea, vomiting, diarrhea, constipation, melena, hematochezia GENITOURINARY: Absent: dysuria, hesitancy, hematuria, flank pain, genital pain MUSCULOSKELETAL: Absent: myalgia, arthralgia, joint swelling, back pain, neck pain SKIN: Absent: rash, itching, pallor HEMATOLOGIC/IMMUNOLOGIC: Absent: easy bleeding, easy bruising, lymphadenopathy, frequent infections ENDOCRINE: Absent: unexplained weight gain, unexplained weight loss, heat intolerance, cold intolerance NEUROLOGIC: Absent: headache, focal weakness or paresthesias, dizziness, unsteady gait, seizure, mental status changes, bladder or bowel incontinence PSYCHIATRIC: Absent: anxiety, depression, suicidal or homicidal ideation, hallucinations. PHYSICAL EXAMINATION Vital Signs - 24 hr 05/29/17 05/29/17 05/29/17 16:50 18:01 22:00 Temperature 101.1 F H 100.6 F H 98.8 F Pulse Rate 84 74 Respiratory 20 20 Rate Blood Pressure 133/63 133/72 05/30/17 05/30/17 05/30/17 01:56 06:00 08:19 Temperature 98.5 F 98.3 F 98.6 F Pulse Rate 71 63 73 Respiratory 18 20 20 Rate Blood Pressure 112/48 145/73 148/74 05/30/17 13:47 Temperature 97.8 F Pulse Rate 69 Respiratory 20 Rate Blood Pressure 148/90 GENERAL: Awake, alert, and fully oriented, in no acute distress. HEAD: Normal with no signs of trauma. EYES: Pupils equal, round and reactive to light, extraocular movements intact, sclera anicteric, conjunctiva clear. No lid lag. EARS, NOSE, THROAT: Ears normal, nares patent, oropharynx clear without exudates. Moist mucous membranes. NECK: Normal range of motion, supple without lymphadenopathy, JVD, or masses. LUNGS: Clear upper lobes bilaterally, diminished air sounds at the bases bilaterally, +dry cough HEART: Regular rate and rhythm, normal S1 and S2 without murmur, rub or gallop. ABDOMEN: Soft, nontender, not distended, normoactive bowel sounds MUSCULOSKELETAL: Normal range of motion at all joints. No bony deformities or tenderness. No CVA tenderness. UPPER EXTREMITIES: trace edema of hand LOWER EXTREMITIES: trace edema on bilateral lower extremities NEUROLOGICAL: Normal speech PSYCHIATRIC: Cooperative. Good eye contact. Appropriate mood and affect. SKIN: Warm, dry, normal turgor, no rashes or lesions noted. Laboratory Results - last 24 hr 05/30/17 05/30/17 07:00 10:35 WBC 7.0 D RBC 3.33 L Hgb 9.7 L D Hct 29.2 L MCV 87.6 MCH 29.1 MCHC 33.2 RDW 14.3 Plt Count 209 D MPV 9.0 Neutrophils % 73.2 Lymphocytes % 17.4 D Monocytes % 8.3 Eosinophils % 0.9 D Basophils % 0.2 Sodium 143 Potassium 3.2 L Chloride 109 H Carbon Dioxide 24 Anion Gap 10 BUN 8 Creatinine 0.4 L Creat Clearance w eGFR > 60 Random Glucose 82 Calcium 7.1 L Total Bilirubin 0.4 D AST 198 H D ALT 88 H D Alkaline Phosphatase 167 H D Total Protein 4.9 L D Albumin 1.8 L D Active Medications Generic Name Dose Route Start Last Admin Trade Name Freq PRN Reason Stop Dose Admin Acetaminophen 650 mg 05/27/17 08:38 05/30/17 14:04 Tylenol - PO 650 mg Q3H PRN Administration PAIN Benzocaine 1 spray 05/27/17 08:38 Americaine 20% [place] - TP PRN PRN PAIN Benzocaine 1 applic 05/27/17 08:38 Americaine Ointment - TP PRN PRN PAIN Bisacodyl 10 mg 05/27/17 08:38 Dulcolax Suppository - RC PRN PRN CONSTIPATION Ferrous Sulfate 325 mg 05/27/17 10:00 05/30/17 09:54 Feosol - PO 325 mg BID KATRINA Administration Oxytocin/Lactated Ringer's 15 unit in 250 mls @ 1 mls/hr 05/27/17 04:00 05/27 08:15 Lactated Ringer+ 15 Units Pitocin IVPB 0 unit/hr ASDIR KATRINA 0 mls/hr Protocol Titration 0.06 UNIT/HR Parenteral Electrolytes 1,000 mls @ 125 mls/hr 05/27/17 04:30 05/27/17 04:30 Plasma-Lyte 148 - IV 125 mls/hr ASDIR KATRINA Administration CEFTRIAXONE 1 G/50 ML PREMIX 50 mls @ 100 mls/hr 05/30/17 10:00 05/30/17 09: 59 Ceftriaxone 1 Gm-D5w Bag IVPB 06/04/17 09:59 100 mls/hr DAILY KATRINA Administration Ibuprofen 600 mg 05/27/17 08:38 05/29/17 20:22 Motrin - PO 600 mg Q4H PRN Administration PAIN Methylergonovine Maleate 0.2 mg 05/27/17 08:38 Methergine Injection - IM Q4H PRN EXCESSIVE BLEEDING (L&D) Multivit/Folic Acid/Iron 1 tab 05/27/17 10:00 05/30/17 09:53 Vitamins (Sjr) - PO 1 tab DAILY KATRINA Administration Senna/Docusate Sodium 2 tablet 05/28/17 22:00 Pericolace - PO HS PRN CONSTIPATION Witch Yanet/Glycerin 1 pad 05/27/17 08:38 Tucks Pads - TP PRN PRN PAIN ASSESSMENT/PLAN: Patient is a 26 year old, grava 2, induced at 41 weeks, post day #3. Who was evaluated today for persistent post fever, right flank pain and dry cough with orthopnea. Imaging: Vascular study, bilateral leg 05/30/2017: No evidence of DVT in both lower extremities Ultrasound/Kidney/renal ultrasound 05/30/2017: Normal sized kidney without hydronephrosis, a 0.7 x 0.5 cm round echogenic lesion on the left kidney is likely a non obstructing calculus, no shadowing right renal calculus identified. Bilateral pleural effusions Chest PA/Lateral 05/30/2017: basilar atelectasis and pleural reaction, prominent mediastinum and clear upper lung arriaga, bones and soft tissue intact. No prior studies to compare ID: Fever, likely secondary to +urine cultures with ecoli Febrile overnight, no fevers since 05/29/17 @ 6pm On Ceftriaxone IV since 05/30, transition to PO Bactrim (sensitive to ecoli) on discharge DVT ruled out with ultrasound Will flu swab now, not vaccinated Monitor labs, fever curve Renal: Nephrolithiasis, acute on chronic Kidney ultrasound suggestive of a 0.7 x 0.5 cm round echogenic lesion on the left kidney is likely a non obstructing calculus Will order CT to further view small renal calculi or for any obstructive stones Currently she is asymptomatic, denies flank pain Defer on pain meds as she is currently lactating NO IVF, appears fluid overloaded, encourage PO intake GI: Elevated ast/alt, acute Likely secondary to fluid volume overload monitor trend Pulmonary: Shortness of breath, resolved dry cough, acute + orthopnea Chest xray as above Tolerating room air Incentive spirometer Monitor fever curve Will ask pulmonary team to evaluate in a.m. if symptoms persist Flu swab now F.E.N. Fluids: tolerating PO, hold off on IVF 2/2 to fluid overload Electrolytes: hypokalemia, repeat labs, follow daily labs Nutrition: regular diet Prophylaxis: DVT: Ambulatory young patient GI: deferred Visit type - Emergency Visit Emergency Visit: Yes ED Registration Date: 05/26/17 Care time: The patient presented to the Emergency Department on the above date and was hospitalized for further evaluation of their emergent condition. - New Patient This patient is new to me today: Yes Date on this admission: 05/30/17 - Critical Care Critical Care patient: No
[2017-05-30] MEDS ORDERED: POTASSIUM CHLORIDE TABS 20 MEQ TABLET.ER (FP) PO ONE (18:00)
--- NOTE | 2017-05-30 19:29 | HOSP ---
Subjective - Review of Symptoms Events since last encounter: Hospitalist Encounter Notified by primary RN of the CTAP suggestive of Pneumonia, Pleural Effusions Patient is currently on Ceftriaxone, will add Azithromycin for pseudomonal coverage for CAP Consults placed for ID and Pulmonary. Physical Examination Vital Signs: Vital Signs Temperature 99.1 F 05/30/17 17:56 Pulse Rate 87 05/30/17 17:56 Respiratory Rate 20 05/30/17 17:56 Blood Pressure 136/73 05/30/17 17:56 O2 Sat by Pulse Oximetry (%) 100 05/29/17 09:00 Labs: CBC, BMP 05/30/17 07:00 05/30/17 16:45 Laboratory Results - last 24 hr 05/30/17 05/30/17 05/30/17 07:00 10:35 16:45 WBC 7.0 D RBC 3.33 L Hgb 9.7 L D Hct 29.2 L MCV 87.6 MCH 29.1 MCHC 33.2 RDW 14.3 Plt Count 209 D MPV 9.0 Neutrophils % 73.2 Lymphocytes % 17.4 D Monocytes % 8.3 Eosinophils % 0.9 D Basophils % 0.2 Sodium 143 Potassium 3.2 L 3.2 L Chloride 109 H Carbon Dioxide 24 Anion Gap 10 BUN 8 Creatinine 0.4 L Creat Clearance w eGFR > 60 Random Glucose 82 Calcium 7.1 L Total Bilirubin 0.4 D AST 198 H D ALT 88 H D Alkaline Phosphatase 167 H D Total Protein 4.9 L D Albumin 1.8 L D ABG Results ABG pH 7.16 (7.35-7.45) L* 05/27/17 08:20 ABG pCO2 at Pt Temp 67.1 mmHg (35-45) H* 05/27/17 08:20 ABG pO2 at Pt Temp 28.7 mmHg (80-100) L* 05/27/17 08:20 ABG HCO3 22.8 meq/L (22-26) 05/27/17 08:20 ABG O2 Sat (Measured) 45.1 % (90-98.9) L* 05/27/17 08:20 ABG O2 Content 9.9 % vol (15-22) L* 05/27/17 08:20 ABG Base Excess -7.5 meq/l (-2-2) L 05/27/17 08:20
[2017-05-30] MEDS ORDERED: AZITHROMYCIN IVPB 500 MG in DEXTROSE 5%-WATER - 250 ML IVPB ONE (19:30)
[2017-05-30] MEDS: IBUPROFEN 600 MG TABLET (FP) PO PRN (22:16)
[2017-05-30] MEDS: PIPERACILLIN/TAZOB 3.375 GM 3.375 GM in DEXTROSE 5%-WATER - 50 ML IVPB SCH (22:40)
[2017-05-31] MEDS: PIPERACILLIN/TAZOB 3.375 GM 3.375 GM in DEXTROSE 5%-WATER - 50 ML IVPB SCH ×3 (06:01→21:54)
[2017-05-31 08:40] LABS: BASOPHIL 0.2 % (0-2.0); EOSINOPHIL 0.4 % (0-4.5); MCHC 33.1 g/dl (32.0-36.0); MEAN CELL VOLUME 87.6 fl (80-96); MEAN PLT VOLUME 8.8 fl (7.5-11.1); NEUTROPHILS 76.6 % (42.8-82.8); PLATELET COUNT 273 K/MM3 (134-434); RDW 14.1 % (11.6-15.6); WHITE BLOOD COUNT 8.2 K/mm3 (4.0-10.0)
[2017-05-31] MEDS: PRENATAL VITAMINS W/ FOLIC ACID TABLET (FP) PO SCH (09:01)
[2017-05-31] MEDS: FERROUS SO4 325 MG TABLET (FP) PO SCH ×2 (09:01→21:53)
[2017-05-31] MEDS: ACETAMINOPHEN 325 MG TABLET (FP) PO PRN (09:01)
[2017-05-31] MEDS: IBUPROFEN 600 MG TABLET (FP) PO PRN (09:02)
[2017-05-31] MEDS: CEFTRIAXONE 1 G/50 ML PREMIX 50 ML IVPB SCH (09:02)
--- NOTE | 2017-05-31 09:06 | PN ---
Physical Exam: SUBJECTIVE: Patient seen and examined at the bedside. She denies any chest pain, verbalizes intermittent episodes of shortness of breath with exertion. Oxygen sats drops to 93% room air with ambulation. OBJECTIVE: Vital Signs Period Temp Pulse Resp BP Sys/[place] Pulse Ox Last 24 Hr 97.8 F-99.1 F 69-96 18-20 116-148/67-90 93-99 GENERAL: Awake, alert, and fully oriented, in no acute distress. HEAD: Normal with no signs of trauma. EYES: Pupils equal, round and reactive to light, extraocular movements intact, sclera anicteric, conjunctiva clear. No lid lag. EARS, NOSE, THROAT: Ears normal, nares patent, oropharynx clear without exudates. Moist mucous membranes. NECK: Normal range of motion, supple without lymphadenopathy, JVD, or masses. LUNGS: Clear upper lobes bilaterally, diminished air sounds at the bases bilaterally, with improvement, +dry cough HEART: Regular rate and rhythm, normal S1 and S2 without murmur, rub or gallop. ABDOMEN: Soft, nontender, not distended, normoactive bowel sounds MUSCULOSKELETAL: Normal range of motion at all joints. No bony deformities or tenderness. No CVA tenderness. UPPER EXTREMITIES: trace edema of hand LOWER EXTREMITIES: trace edema on bilateral lower extremities NEUROLOGICAL: Normal speech PSYCHIATRIC: Cooperative. Good eye contact. Appropriate mood and affect. SKIN: Warm, dry, normal turgor, no rashes or lesions noted. Laboratory Results - last 24 hr 05/30/17 05/30/17 05/31/17 10:35 16:45 08:15 WBC 8.2 RBC 3.83 Hgb 11.1 D Hct 33.5 MCV 87.6 MCH 29.0 MCHC 33.1 RDW 14.1 Plt Count 273 D MPV 8.8 Neutrophils % 76.6 Lymphocytes % 14.1 Monocytes % 8.7 Eosinophils % 0.4 Basophils % 0.2 Sodium 143 Potassium 3.2 L 3.2 L Chloride 109 H Carbon Dioxide 24 Anion Gap 10 BUN 8 Creatinine 0.4 L Creat Clearance w eGFR > 60 Random Glucose 82 Calcium 7.1 L Total Bilirubin 0.4 D AST 198 H D ALT 88 H D Alkaline Phosphatase 167 H D Total Protein 4.9 L D Albumin 1.8 L D Active Medications Generic Name Dose Route Start Last Admin Trade Name Freq PRN Reason Stop Dose Admin Acetaminophen 650 mg 05/27/17 08:38 05/30/17 22:14 Tylenol - PO 650 mg Q3H PRN Administration PAIN Benzocaine 1 spray 05/27/17 08:38 Americaine 20% [place] - TP PRN PRN PAIN Benzocaine 1 applic 05/27/17 08:38 Americaine Ointment - TP PRN PRN PAIN Bisacodyl 10 mg 05/27/17 08:38 Dulcolax Suppository - RC PRN PRN CONSTIPATION Ferrous Sulfate 325 mg 05/27/17 10:00 05/30/17 22:17 Feosol - PO 325 mg BID KATRINA Administration Oxytocin/Lactated Ringer's 15 unit in 250 mls @ 1 mls/hr 05/27/17 04:00 05/27 08:15 Lactated Ringer+ 15 Units Pitocin IVPB 0 unit/hr ASDIR KATRINA 0 mls/hr Protocol Titration 0.06 UNIT/HR Parenteral Electrolytes 1,000 mls @ 125 mls/hr 05/27/17 04:30 05/27/17 04:30 Plasma-Lyte 148 - IV 125 mls/hr ASDIR KATRINA Administration CEFTRIAXONE 1 G/50 ML PREMIX 50 mls @ 100 mls/hr 05/30/17 10:00 05/30/17 09: 59 Ceftriaxone 1 Gm-D5w Bag IVPB 06/04/17 09:59 100 mls/hr DAILY KATRINA Administration Piperacillin Sod/Tazobactam 50 mls @ 100 mls/hr 05/30/17 22:00 05/31/17 06:01 Sod 3.375 gm/ Dextrose IVPB 100 mls/hr Q8H KATRINA Administration Protocol Ibuprofen 600 mg 05/27/17 08:38 05/30/17 22:16 Motrin - PO 600 mg Q4H PRN Administration PAIN Methylergonovine Maleate 0.2 mg 05/27/17 08:38 Methergine Injection - IM Q4H PRN EXCESSIVE BLEEDING (L&D) Multivit/Folic Acid/Iron 1 tab 05/27/17 10:00 05/30/17 09:53 Vitamins (Sjr) - PO 1 tab DAILY KATRINA Administration Senna/Docusate Sodium 2 tablet 05/28/17 22:00 Pericolace - PO HS PRN CONSTIPATION Witch Yanet/Glycerin 1 pad 05/27/17 08:38 Tucks Pads - TP PRN PRN PAIN ASSESSMENT/PLAN: Patient is a 26 year old, grava 2, induced at 41 weeks, post day #4. Who was evaluated today for persistent post fever, right flank pain and dry cough with orthopnea. Imaging: Vascular study, bilateral leg 05/30/2017: No evidence of DVT in both lower extremities Ultrasound/Kidney/renal ultrasound 05/30/2017: Normal sized kidney without hydronephrosis, a 0.7 x 0.5 cm round echogenic lesion on the left kidney is likely a non obstructing calculus, no shadowing right renal calculus identified. Bilateral pleural effusions Chest PA/Lateral 05/30/2017: basilar atelectasis and pleural reaction, prominent mediastinum and clear upper lung arriaga, bones and soft tissue intact. No prior studies to compare CT/Abdomen & Pelvis CT: bibasal consolidation/pneumonia and small bilateral pleural effusion, right more than left, hepatomegaly, mild mesenteric edema and small amount of ascites of uncertain etiology. Multiple small bilateral non obstructing renal stones measuring up to 4mm without gross evidence of hydroureter or obstructing ureteral stone. Partially distended urinary bladder without wall thickening or intraluminal stones. Large uterus ID: Fever, likely secondary to +urine cultures with ecoli and now with pneumonia Afebrile overnight, no fevers since 05/29/17 @ 6pm On Ceftriaxone IV since 05/30 for ecoli in urine cultures DVT ruled out with ultrasound Negative for flu Monitor labs, fever curve ID consulted Pulmonary: Pneumonia, acute Shortness of breath, intermittent episodes with ambulation, improving dry cough, persistent + orthopnea Chest xray as above CT/abd/pelvis: bibasal pneumonia with small bilateral pleural effusions Now on Zosyn as per ID (05/30 > ) Tolerating room air, prn oxygen supplementation @ 2 liters Incentive spirometer Albuterol as needed Negative for flu Direct Care Worker consulted Renal: Nephrolithiasis, acute on chronic Kidney ultrasound suggestive of a 0.7 x 0.5 cm round echogenic lesion on the left kidney is likely a non obstructing calculus CT shows multiple small bilateral non obstructing renal stones measuring up to 4mm without gross evidence of hydroureter or obstructing ureteral stone. Currently she is asymptomatic, denies flank pain Defer on pain meds as she is currently lactating NO IVF, appears fluid overloaded, encourage PO intake Urology consult on discharge for close followup GI: Elevated ast/alt, acute Not down trending Likely secondary to fluid volume overload? CT shows hepatomegaly, hep panel ordered Monitor trend GI follow up F.E.N. Fluids: tolerating PO, hold off on IVF / to fluid overload Electrolytes: hypokalemia, repeat labs, follow daily labs Nutrition: regular diet Prophylaxis: DVT: Ambulatory young patient GI: deferred Visit type - Emergency Visit Emergency Visit: Yes ED Registration Date: 05/26/17 Care time: The patient presented to the Emergency Department on the above date and was hospitalized for further evaluation of their emergent condition. - New Patient This patient is new to me today: No - Critical Care Critical Care patient: No - Discharge Referral Referred to [facility] Med P.C.: No
[2017-05-31 09:12] LABS: ALBUMIN 2.1 g/dl (3.4-5.0); ANION GAP 11 (8-16); CALCIUM 7.8 mg/dL (8.5-10.1); CO2 24 mmol/L (21-32); GLUCOSE,RANDOM 86 mg/dL (74-106)
[2017-05-31 09:15] LABS: ALK PHOS 183 U/L (45-117); BILIRUBIN,TOTAL 0.7 mg/dL (0.2-1.0); CREATININE 0.5 mg/dL (0.55-1.02); SGOT/AST 177 U/L (15-37); SGPT/ALT 129 U/L (12-78); TOT PROT 5.7 g/dl (6.4-8.2)
[2017-05-31] MEDS ORDERED: ALBUTEROL SO4 0.083% IH SOL 2.5 MG/3 ML VIAL.NEB. NEB PRN (09:41)
--- NOTE | 2017-05-31 09:57 | PN ---
Post Progress Note - Subjective Subjective: 26 yo Para 2 status post vaginal delivery complicated by fever. Patient seen and evaluated; she's lying in bed with nasal canula in place. She's afebrile. Post Day: 4 Type of Delivery: Vital Signs: Vital Signs Temperature 98.6 F 05/31/17 08:35 Pulse Rate 80 05/31/17 08:37 Respiratory Rate 20 05/31/17 08:35 Blood Pressure 142/67 05/31/17 08:35 O2 Sat by Pulse Oximetry (%) 99 05/31/17 08:37 Breast Exam: Yes: Soft Uterus: Yes: Fundus Firm Abdomen/GI: Yes: Abdomen soft, Tolerating PO Lochia: Yes: Rubra Lochia, amount: Moderate Extremities: Yes: Calves non-tender - Labs Labs: CBC WBC 8.2 K/mm3 (4.0-10.0) 05/31/17 08:15 RBC 3.83 M/mm3 (3.60-5.2) 05/31/17 08:15 Hgb 11.1 GM/dL (10.7-15.3) D 05/31/17 08:15 Hct 33.5 % (32.4-45.2) 05/31/17 08:15 MCV 87.6 fl (80-96) 05/31/17 08:15 MCH 29.0 pg (25.7-33.7) 05/31/17 08:15 MCHC 33.1 g/dl (32.0-36.0) 05/31/17 08:15 RDW 14.1 % (11.6-15.6) 05/31/17 08:15 Plt Count 273 K/MM3 (134-434) D 05/31/17 08:15 MPV 8.8 fl (7.5-11.1) 05/31/17 08:15 Neutrophils % 76.6 % (42.8-82.8) 05/31/17 08:15 Lymphocytes % 14.1 % (8-40) 05/31/17 08:15 Monocytes % 8.7 % (3.8-10.2) 05/31/17 08:15 Eosinophils % 0.4 % (0-4.5) 05/31/17 08:15 Basophils % 0.2 % (0-2.0) 05/31/17 08:15 Assessment/Plan Status post vaginal delivery fever Continue IV antibiotic Continue management as per hospitalist
--- NOTE | 2017-05-31 11:44 | CON.GI ---
Consult Consult Specialty:: GI Reason for Consultation:: abnormal liver chemistry - History of Present Illness History of Present Illness: . 2nd . , with fever. Found to have abnormal chest CT and treated initially with Rocephin, NSAIDs and Tylenol. The CT also showed a fatty liver. No prior history of liver disease, or abnormal liver enzymes in the past, or during and after first . Denies viral hepatitis risk factors. No family history of liver, or of autoimmune diseases. Denies abdominal pain, nausea, vomiting, diarrhea, dysphagia, odynophagia, dyspepsia. C/o r. back and mid axial pain. - History Source History Provided By: Patient, Medical Record Limitations to Obtaining History: No Limitations - Past Medical History Renal/: Yes: Renal Calculi - Past Surgical History Past Surgical History: Yes: None - Alcohol/Substance Use Hx Alcohol Use: No History of Substance Use: reports: None - Smoking History Smoking history: Never smoked Have you smoked in the past 12 months: No Aproximately how many cigarettes per day: 0 - Social History Usual Living Arrangement: With Parent (mother) ADL: Independent History of Recent Travel: No Home Medications - Allergies Allergies/Adverse Reactions: Allergies Allergy/AdvReac Type Severity Reaction Status Date / Time No Known Allergies Allergy Verified 05/26/17 14:51 - Home Medications Home Medications: Ambulatory Orders Vits #93/Iron Fum/FA [ Formula Tablet] 1 each PO DAILY Ferrous Sulfate [Feosol] 1 tablet PO DAILY 04/04/17 Family Disease History - Family Disease History Family History: Unremarkable Review of Systems Findings/Remarks: please refer to the chart and care paper records in chart - Review of Systems Constitutional: reports: Fever HENT: denies: Difficult Swallowing Gastrointestinal: denies: Abdominal Pain, Diarrhea, Dysphagia, Indigestion, Melena, Nausea, Vomiting, Vomiting Blood Neurological: reports: No Symptoms Hematology/Lymphatic: reports: No Symptoms Physical Exam-GI Vital Signs: Vital Signs Temperature 98.6 F 05/31/17 08:35 Pulse Rate 80 05/31/17 08:37 Respiratory Rate 20 05/31/17 08:35 Blood Pressure 142/67 05/31/17 08:35 O2 Sat by Pulse Oximetry (%) 99 05/31/17 08:37 Constitutional: Yes: Well Nourished, No Distress, Calm Eyes: Yes: Conjunctiva Clear HENT: Yes: Atraumatic Neck: Yes: Supple Cardiovascular: Yes: Regular Rate and Rhythm Respiratory: Yes: Regular ...Auscultate: Yes: Normoactive Bowel Sounds ...Palpate: Yes: Soft. No: Firm/Rigid, Guarding, Mass, Tenderness, Tenderness, Epigastium, Tenderness, Rebound Neurological: Yes: Alert, Oriented Labs: CBC, BMP 05/31/17 08:15 05/31/17 08:15 INR, PTT INR 0.96 (0.82-1.09) 05/26/17 15:30 CBCD WBC 8.2 K/mm3 (4.0-10.0) 05/31/17 08:15 RBC 3.83 M/mm3 (3.60-5.2) 05/31/17 08:15 Hgb 11.1 GM/dL (10.7-15.3) D 05/31/17 08:15 Hct 33.5 % (32.4-45.2) 05/31/17 08:15 MCV 87.6 fl (80-96) 05/31/17 08:15 MCHC 33.1 g/dl (32.0-36.0) 05/31/17 08:15 RDW 14.1 % (11.6-15.6) 05/31/17 08:15 Plt Count 273 K/MM3 (134-434) D 05/31/17 08:15 MPV 8.8 fl (7.5-11.1) 05/31/17 08:15 CMP Sodium 142 mmol/L (136-145) 05/31/17 08:15 Potassium 3.5 mmol/L (3.5-5.1) 05/31/17 08:15 Chloride 107 mmol/L (98-107) 05/31/17 08:15 Carbon Dioxide 24 mmol/L (21-32) 05/31/17 08:15 Anion Gap 11 (8-16) 05/31/17 08:15 BUN 7 mg/dL (7-18) 05/31/17 08:15 Creatinine 0.5 mg/dL (0.55-1.02) L D 05/31/17 08:15 Creat Clearance w eGFR > 60 (>60) 05/31/17 08:15 Calcium 7.8 mg/dL (8.5-10.1) L 05/31/17 08:15 Total Bilirubin 0.7 mg/dL (0.2-1.0) D 05/31/17 08:15 AST 177 U/L (15-37) H 05/31/17 08:15 ALT 129 U/L (12-78) H D 05/31/17 08:15 Alkaline Phosphatase 183 U/L (45-117) H 05/31/17 08:15 Total Protein 5.7 g/dl (6.4-8.2) L 05/31/17 08:15 Albumin 2.1 g/dl (3.4-5.0) L 05/31/17 08:15 Imaging - Results Ultrasound: Pending Problem List - Problems (1) Elevated liver enzymes Code(s): R74.8 - ABNORMAL LEVELS OF OTHER SERUM ENZYMES Assessment/Plan Noted to have abnormal transaminases 1 day ago. Elevaetd ALT>AST and ALP. Normal bilirubin, platelets. No prior history of liver issues including during 1st . No obvious risk factors for viral, autoimmune and - related liver disease. Suspect infectious and/or medication-related transaminitis. Trend liver panel, PT/INR and CBC daily Stop all non-essential medications (Tylenol, NSAIDs). OK with PRN oxycodone for pain Consider stopping ceftriaxone. Continue with Zosyn agree with viral hepatitis profile ?bile salts will monitor
--- NOTE | 2017-05-31 11:53 | CONSULT ---
Consultation: REQUESTING PROVIDER: Beatriz García TEACHING YOUNG CONSULT REQUEST: We have been asked to medically evaluate this patient for SOB, cough HISTORY OF PRESENT ILLNESS: 32 year old female , post day 4 who complains with post fever, sob , and cough. the SOB started 2 days ago,getting worse when she lay down or she walk, she had dry cough, she denies any cheat pain, sore throat, congestion symptoms . she denies any N/V/D/C, she denies any headache , blurry vision , or leg swelling. 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 REVIEW OF SYSTEMS: CONSTITUTIONAL: Absent: fever, chills, diaphoresis, generalized weakness, malaise, loss of appetite, weight change HEENT: Absent: rhinorrhea, nasal congestion, throat pain, throat swelling, difficulty swallowing, mouth swelling, ear pain, eye pain, visual changes CARDIOVASCULAR: Absent: chest pain, syncope, palpitations, irregular heart rate, lightheadedness , peripheral edema RESPIRATORY: Absent: cough, shortness of breath,+ dyspnea with exertion, orthopnea, wheezing , stridor, hemoptysis GASTROINTESTINAL: Absent: abdominal pain, abdominal distension, nausea, vomiting, diarrhea, constipation, melena, hematochezia GENITOURINARY: Absent: dysuria, frequency, urgency, hesitancy, hematuria, flank pain, genital pain MUSCULOSKELETAL: Absent: myalgia, arthralgia, joint swelling, back pain, neck pain SKIN: Absent: rash, itching, pallor HEMATOLOGIC/IMMUNOLOGIC: Absent: easy bleeding, easy bruising, lymphadenopathy, frequent infections ENDOCRINE: Absent: unexplained weight gain, unexplained weight loss, heat intolerance, cold intolerance NEUROLOGIC: Absent: headache, focal weakness or paresthesias, dizziness, unsteady gait, seizure, mental status changes, bladder or bowel incontinence PSYCHIATRIC: Absent: anxiety, depression, suicidal or homicidal ideation, hallucinations. PHYSICAL EXAMINATION Vital Signs - 24 hr 05/30/17 05/30/17 05/30/17 13:47 17:56 19:52 Temperature 97.8 F 99.1 F 98.1 F Pulse Rate 69 87 78 Respiratory 20 20 18 Rate Blood Pressure 148/90 136/73 138/89 O2 Sat by Pulse Oximetry (%) 05/30/17 05/30/17 05/30/17 19:54 20:30 20:35 Temperature Pulse Rate 78 89 Respiratory Rate Blood Pressure O2 Sat by Pulse 99 93 L 93 L Oximetry (%) 05/30/17 05/30/17 05/31/17 23:38 23:39 06:07 Temperature 98.7 F 98.1 F Pulse Rate 88 88 96 H Respiratory 20 20 Rate Blood Pressure 116/70 136/87 O2 Sat by Pulse 95 Oximetry (%) 05/31/17 05/31/17 05/31/17 06:08 08:35 08:37 Temperature 98.6 F Pulse Rate 79 80 Respiratory 20 Rate Blood Pressure 142/67 O2 Sat by Pulse 93 L 99 Oximetry (%) GENERAL: Awake, alert, and fully oriented, in no acute distress. HEAD: Normal with no signs of trauma. EYES: sclera anicteric, conjunctiva clear. No lid lag. EARS, NOSE, THROAT: Moist mucous membranes. NECK: Normal range of motion, supple without lymphadenopathy, JVD, or masses. LUNGS: Breath sounds equal, clear to auscultation bilaterally. No wheezes, and no crackles. No accessory muscle use. HEART: iRRegular rate and rhythm, normal S1 and S2 without murmur, rub or gallop. ABDOMEN: Soft, mid epigastric tenderness, distended, normoactive bowel sounds, no guarding, no rebound, MUSCULOSKELETAL: Normal range of motion at all joints. No bony deformities or tenderness. No CVA tenderness. LOWER EXTREMITIES: 2+ pulses, warm, well-perfused. No calf tenderness. trace on left leg NEUROLOGICAL: No focal deficit Normal speech. PSYCHIATRIC: Cooperative. Good eye contact. Appropriate mood and affect. SKIN: Warm, dry, no rashes or lesions noted. Laboratory Results - last 24 hr 05/30/17 05/30/17 05/31/17 10:35 16:45 08:15 WBC 8.2 RBC 3.83 Hgb 11.1 D Hct 33.5 MCV 87.6 MCH 29.0 MCHC 33.1 RDW 14.1 Plt Count 273 D MPV 8.8 Neutrophils % 76.6 Lymphocytes % 14.1 Monocytes % 8.7 Eosinophils % 0.4 Basophils % 0.2 Sodium 143 Potassium 3.2 L 3.2 L Chloride 109 H Carbon Dioxide 24 Anion Gap 10 BUN 8 Creatinine 0.4 L Creat Clearance w eGFR > 60 Random Glucose 82 Calcium 7.1 L Total Bilirubin 0.4 D AST 198 H D ALT 88 H D Alkaline Phosphatase 167 H D Total Protein 4.9 L D Albumin 1.8 L D 05/31/17 08:15 WBC RBC Hgb Hct MCV MCH MCHC RDW Plt Count MPV Neutrophils % Lymphocytes % Monocytes % Eosinophils % Basophils % Sodium 142 Potassium 3.5 Chloride 107 Carbon Dioxide 24 Anion Gap 11 BUN 7 Creatinine 0.5 L D Creat Clearance w eGFR > 60 Random Glucose 86 Calcium 7.8 L Total Bilirubin 0.7 D AST 177 H ALT 129 H D Alkaline Phosphatase 183 H Total Protein 5.7 L Albumin 2.1 L Active Medications Generic Name Dose Route Start Last Admin Trade Name Freq PRN Reason Stop Dose Admin Acetaminophen 650 mg 05/27/17 08:38 05/31/17 09:01 Tylenol - PO 650 mg Q3H PRN Administration PAIN Albuterol Sulfate 1 amp 05/31/17 09:41 Ventolin 0.083% Nebulizer Soln - NEB Q6H PRN SHORT OF BREATH/WHEEZING Benzocaine 1 spray 05/27/17 08:38 Americaine 20% [place] - TP PRN PRN PAIN Benzocaine 1 applic 05/27/17 08:38 Americaine Ointment - TP PRN PRN PAIN Bisacodyl 10 mg 05/27/17 08:38 Dulcolax Suppository - RC PRN PRN CONSTIPATION Ferrous Sulfate 325 mg 05/27/17 10:00 05/31/17 09:01 Feosol - PO 325 mg BID KATRINA Administration Oxytocin/Lactated Ringer's 15 unit in 250 mls @ 1 mls/hr 05/27/17 04:00 05/27 08:15 Lactated Ringer+ 15 Units Pitocin IVPB 0 unit/hr ASDIR KATRINA 0 mls/hr Protocol Titration 0.06 UNIT/HR Parenteral Electrolytes 1,000 mls @ 125 mls/hr 05/27/17 04:30 05/27/17 04:30 Plasma-Lyte 148 - IV 125 mls/hr ASDIR KATRINA Administration CEFTRIAXONE 1 G/50 ML PREMIX 50 mls @ 100 mls/hr 05/30/17 10:00 05/31/17 09: 02 Ceftriaxone 1 Gm-D5w Bag IVPB 06/04/17 09:59 100 mls/hr DAILY KATRINA Administration Piperacillin Sod/Tazobactam 50 mls @ 100 mls/hr 05/30/17 22:00 05/31/17 06:01 Sod 3.375 gm/ Dextrose IVPB 100 mls/hr Q8H KATRINA Administration Protocol Ibuprofen 600 mg 05/27/17 08:38 05/31/17 09:02 Motrin - PO 600 mg Q4H PRN Administration PAIN Methylergonovine Maleate 0.2 mg 05/27/17 08:38 Methergine Injection - IM Q4H PRN EXCESSIVE BLEEDING (L&D) Multivit/Folic Acid/Iron 1 tab 05/27/17 10:00 05/31/17 09:01 Vitamins (Sjr) - PO 1 tab DAILY KATRINA Administration Senna/Docusate Sodium 2 tablet 05/28/17 22:00 Pericolace - PO HS PRN CONSTIPATION Witch Yanet/Glycerin 1 pad 05/27/17 08:38 Tucks Pads - TP PRN PRN PAIN CBC, BMP 05/31/17 08:15 05/31/17 08:15 Microbiology 05/27/17 11:15 Blood - Peripheral Venous Blood Culture - Preliminary NO GROWTH OBTAINED AFTER 96 HOURS, INCUBATION TO CONTINUE FOR 1 DAYS. 05/27/17 11:24 Blood - Peripheral Venous Blood Culture - Preliminary NO GROWTH OBTAINED AFTER 96 HOURS, INCUBATION TO CONTINUE FOR 1 DAYS. 05/30/17 19:30 Nasopharyngeal Swab Influenza Types A,B Antigen (BECKA) - Final 05/30/17 19:30 Nasopharyngeal Swab - Final 05/27/17 11:35 Urine - Urine Clean Catch Urine Culture - Final Escherichia Coli Imaging: Vascular study, bilateral leg 05/30/2017: No evidence of DVT in both lower extremities Ultrasound/Kidney/renal ultrasound 05/30/2017: Normal sized kidney without hydronephrosis, a 0.7 x 0.5 cm round echogenic lesion on the left kidney is likely a non obstructing calculus, no shadowing right renal calculus identified. Bilateral pleural effusions Chest PA/Lateral 05/30/2017: basilar atelectasis and pleural reaction, prominent mediastinum and clear upper lung arriaga, bones and soft tissue intact. No prior studies to compare CT/Abdomen & Pelvis CT: bibasal consolidation/pneumonia and small bilateral pleural effusion, right more than left, hepatomegaly, mild mesenteric edema and small amount of ascites of uncertain etiology. Multiple small bilateral non obstructing renal stones measuring up to 4mm without gross evidence of hydroureter or obstructing ureteral stone. Partially distended urinary bladder without wall thickening or intraluminal stones. Large uterus ASSESSMENT/PLAN: Patient is a 26 year old, grava 2, post day #4. Who was evaluated today for persistent post fever, right flank pain and dry cough with orthopnea. #Fever 2/2 UTI , unlikely Pneumonia , afebrile last 24 hour # Transaminitis #Nephrolithiais ,acute on chronic #volume over load # Pleural effusion # compression atelectasis * Shortness of breath, intermittent episodes with ambulation, improving * dry cough, persistent,+ orthopnea * Chest xray as above * CT/abd/pelvis: bibasal pneumonia with small bilateral pleural effusions * Now on Zosyn as per ID (05/30 ) * Tolerating room air, prn oxygen supplementation @ 2 liters * Incentive spirometery * Albuterol as needed * Negative for flu * F/U pending Cx * encourage ambulation * minimize fluid, encourage oral intake * Monitor clinically * Dispo: We will continue to follow the patient. Thank you for this consultative opportunity.
[2017-05-31 12:45] LABS: INR 1.07 (0.82-1.09); PROTHROMBIN TIME (PATIENT) 12.1 SEC (9.98-11.88)
[2017-05-31 13:04] LABS: BILIRUBIN,DIRECT 0.2 mg/dL (0.0-0.2)
[2017-05-31 13:06] LABS: BILIRUBIN,TOTAL 0.5 mg/dL (0.2-1.0); TOT PROT 5.5 g/dl (6.4-8.2)
--- NOTE | 2017-05-31 15:48 | CON.ID ---
Consult Consult Specialty:: infectious diseases Reason for Consultation:: fever,burning in urine - History of Present Illness Chief Complaint: cough History of Present Illness: 26 yo , 41.1 weeks, who recently had delivered post delivery patient started not feeling well she had fevers and was worked up and found to ahve some findings in the lungs and also patient has uti patient says she has been coughing without sputum production but the cough is bothering her - History Source History Provided By: Patient Limitations to Obtaining History: No Limitations - Past Medical History Renal/: Yes: Renal Calculi - Past Surgical History Past Surgical History: Yes: None - Alcohol/Substance Use Hx Alcohol Use: No History of Substance Use: reports: None - Smoking History Smoking history: Never smoked Have you smoked in the past 12 months: No Aproximately how many cigarettes per day: 0 - Social History Usual Living Arrangement: With Parent (mother) ADL: Independent History of Recent Travel: No Home Medications - Allergies Allergies/Adverse Reactions: Allergies Allergy/AdvReac Type Severity Reaction Status Date / Time No Known Allergies Allergy Verified 05/26/17 14:51 - Home Medications Home Medications: Ambulatory Orders Vits #93/Iron Fum/FA [ Formula Tablet] 1 each PO DAILY Ferrous Sulfate [Feosol] 1 tablet PO DAILY 04/04/17 Review of Systems - Review of Systems Constitutional: reports: Fever Eyes: reports: No Symptoms HENT: reports: No Symptoms Neck: reports: No Symptoms Cardiovascular: reports: No Symptoms Respiratory: reports: Cough, SOB Gastrointestinal: reports: No Symptoms Musculoskeletal: reports: No Symptoms Neurological: reports: No Symptoms Endocrine: reports: No Symptoms Hematology/Lymphatic: reports: No Symptoms Psychiatric: reports: No Symptoms Physical Exam Vital Signs: Vital Signs Temperature 97.7 F 05/31/17 14:00 Pulse Rate 80 05/31/17 14:00 Respiratory Rate 20 05/31/17 14:00 Blood Pressure 136/80 05/31/17 14:00 O2 Sat by Pulse Oximetry (%) 99 05/31/17 08:37 Constitutional: Yes: Well Nourished, Calm, Mild Distress Eyes: Yes: Conjunctiva Clear HENT: Yes: Atraumatic Neck: Yes: Supple Cardiovascular: Yes: Regular Rate and Rhythm Respiratory: Yes: Cough, Poor Air Entry, Other (bilateral crackles) Gastrointestinal: Yes: Normal Bowel Sounds, Soft Musculoskeletal: Yes: WNL Extremities: Yes: WNL Neurological: Yes: Alert, Oriented Psychiatric: Yes: Alert, Oriented Labs: CBC, BMP 05/31/17 08:15 05/31/17 08:15 Imaging - Results Cat Scan: Report Reviewed, Image Reviewed Ultrasound: Report Reviewed, Image Reviewed Assessment/Plan UTI Nephrolithiasis uti Pleural Effusion Compressive Atelectasis fever plan continue zosyn' await for all cx incentive yosef rest as per primary
--- NOTE | 2017-05-31 16:28 | PN ---
Teaching Attending Note Name of Resident: Pedro Luis Parr ATTENDING PHYSICIAN STATEMENT I saw and evaluated the patient. I reviewed the resident's note and discussed the case with the resident. I agree with the resident's findings and plan as documented. SUBJECTIVE: Pt seen and examined with the resident. Briefly, 26 year old female s/p who developed fevers, flank pain with cough post day 3, found to have a UTI, started on zosyn. CT A/P done to rule out stones showed some nonobstructive stones but also showed ascites, bilateral pleural effusions and atelectasis. She reports a nonproductive cough. Has not had a fever since that initial fever. No history of asthma, she is a never smoker. She has received 9L IVF since admission. OBJECTIVE: Last Vital Signs Temp Pulse Resp BP Pulse Ox 97.7 F 80 20 136/80 99 05/31/17 14:00 05/31/17 14:00 05/31/17 14:00 05/31/17 14:00 05/31/17 08:37 Intake & Output 05/28/17 05/29/17 05/30/17 05/31/17 23:59 23:59 23:59 23:59 Intake Total 1550 3075 1300 350 Balance 1550 3075 1300 350 Gen: NAD at rest Heart: RRR Lung: bibasilar rales Abd: soft, palpable uterus Ext: + edema CBC, BMP 05/31/17 08:15 05/31/17 08:15 Active Medications Albuterol Sulfate (Ventolin 0.083% Nebulizer Soln -) 1 amp NEB Q6H PRN PRN Reason: SHORT OF BREATH/WHEEZING Benzocaine (Americaine 20% [place] -) 1 spray TP PRN PRN PRN Reason: PAIN Benzocaine (Americaine Ointment -) 1 applic TP PRN PRN PRN Reason: PAIN Bisacodyl (Dulcolax Suppository -) 10 mg RC PRN PRN PRN Reason: CONSTIPATION Ferrous Sulfate (Feosol -) 325 mg PO BID KATRINA Last Admin: 05/31/17 09:01 Dose: 325 mg Oxytocin/Lactated Ringer's (Lactated Ringer+ 15 Units Pitocin) 15 unit in 250 mls @ 1 mls/hr IVPB ASDIR KATRINA; 0.06 UNIT/HR PRN Reason: Protocol Last Titration: 05/27/17 08:15 Dose: 0 unit/hr, 0 mls/hr Parenteral Electrolytes (Plasma-Lyte 148 -) 1,000 mls @ 125 mls/hr IV ASDIR [facility] Last Admin: 05/27/17 04:30 Dose: 125 mls/hr Piperacillin Sod/Tazobactam (Sod 3.375 gm/ Dextrose) 50 mls @ 100 mls/hr IVPB Q8H KATRINA PRN Reason: Protocol Last Admin: 05/31/17 13:45 Dose: 100 mls/hr Methylergonovine Maleate (Methergine Injection -) 0.2 mg IM Q4H PRN PRN Reason: EXCESSIVE BLEEDING (L&D) Oxycodone HCl (Roxicodone -) 5 mg PO Q4H PRN PRN Reason: PAIN Multivit/Folic Acid/Iron ( Vitamins (Sjr) -) 1 tab PO DAILY [facility] Last Admin: 05/31/17 09:01 Dose: 1 tab Senna/Docusate Sodium (Pericolace -) 2 tablet PO HS PRN PRN Reason: CONSTIPATION Witch Yanet/Glycerin (Tucks Pads -) 1 pad TP PRN PRN PRN Reason: PAIN ASSESSMENT AND PLAN: s/p UTI Nephrolithiasis Volume Overload Pleural Effusion Compressive Atelectasis - continue antibiotics per ID - f/u pending cultures - do not suspect pneumonia at this time - clinical picture and exam consistent with volume overload leading to ascites , pleural effusions and subsequent compressive atelectasis - incentive spirometry - inhaled bronchodilators as needed - ambulate - minimize IVF - DVT prophylaxis Thank you for this consult Jerad Gómez MD
[2017-05-31] MEDS: oxyCODONE HCL 5 MG TABLET PO PRN (23:41)
[2017-06-01] MEDS: PIPERACILLIN/TAZOB 3.375 GM 3.375 GM in DEXTROSE 5%-WATER - 50 ML IVPB SCH ×3 (06:20→22:47)
--- NOTE | 2017-06-01 07:54 | PN ---
Post Progress Note - Subjective Subjective: pt feels better , breathing difficuty is less edema is less. voiding without difficulty Post Day: 5 Type of Delivery: Vital Signs: Vital Signs Temperature 98.8 F 06/01/17 06:00 Pulse Rate 103 H 06/01/17 06:00 Respiratory Rate 20 06/01/17 06:00 Blood Pressure 122/86 06/01/17 06:00 O2 Sat by Pulse Oximetry (%) 97 06/01/17 00:02 Breast Exam: Yes: Soft, Other (pumping breast milk ). No: Engorged Uterus: Yes: Fundus Firm, Fundus @ umbilicus, Non-tender Abdomen/GI: Yes: Other (no cva tendrness) Lochia: Yes: Rubra Lochia, amount: Small (no odor) Extremities: Yes: Calves non-tender (scd in situ ) Perineum: Yes: Intact Activity: Ambulating - Labs Labs: CBC WBC 8.2 K/mm3 (4.0-10.0) 05/31/17 08:15 RBC 3.83 M/mm3 (3.60-5.2) 05/31/17 08:15 Hgb 11.1 GM/dL (10.7-15.3) D 05/31/17 08:15 Hct 33.5 % (32.4-45.2) 05/31/17 08:15 MCV 87.6 fl (80-96) 05/31/17 08:15 MCH 29.0 pg (25.7-33.7) 05/31/17 08:15 MCHC 33.1 g/dl (32.0-36.0) 05/31/17 08:15 RDW 14.1 % (11.6-15.6) 05/31/17 08:15 Plt Count 273 K/MM3 (134-434) D 05/31/17 08:15 MPV 8.8 fl (7.5-11.1) 05/31/17 08:15 Neutrophils % 76.6 % (42.8-82.8) 05/31/17 08:15 Lymphocytes % 14.1 % (8-40) 05/31/17 08:15 Monocytes % 8.7 % (3.8-10.2) 05/31/17 08:15 Eosinophils % 0.4 % (0-4.5) 05/31/17 08:15 Basophils % 0.2 % (0-2.0) 05/31/17 08:15 Laboratory Tests 05/31/17 05/31/17 05/31/17 08:15 09:57 12:20 PT with INR 12.10 H INR 1.07 Total Bilirubin Direct Bilirubin AST 177 H ALT 129 H D Hepatitis A Ab Total Negative Hep Bs Antigen Negative Hep Bs Antibody Reactive Hep B Core Total Ab Negative 05/31/17 12:20 PT with INR INR Total Bilirubin 0.5 D Direct Bilirubin 0.2 AST 138 H D ALT 114 H Hepatitis A Ab Total Hep Bs Antigen Hep Bs Antibody Hep B Core Total Ab Microbiology 05/30/17 19:30 Nasopharyngeal Swab Influenza Types A,B Antigen (BECKA) - Final 05/30/17 19:30 Nasopharyngeal Swab - Final 05/27/17 11:35 Urine - Urine Clean Catch Urine Culture - Final Escherichia Coli 05/30/17 16:45 Blood - Peripheral Venous Blood Culture - Preliminary NO GROWTH OBTAINED AFTER 24 HOURS, INCUBATION TO CONTINUE FOR 4 DAYS. 05/30/17 16:45 Blood - Peripheral Venous Blood Culture - Preliminary NO GROWTH OBTAINED AFTER 24 HOURS, INCUBATION TO CONTINUE FOR 4 DAYS. Other Findings, Remarks: RS breath sounds diminshed air entry at bases, more on Rt side . 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
[2017-06-01 08:39] LABS: BASOPHIL 0.3 % (0-2.0); EOSINOPHIL 1.4 % (0-4.5); MCH 28.8 pg (25.7-33.7); MCHC 33.1 g/dl (32.0-36.0); NEUTROPHILS 66.7 % (42.8-82.8); PLATELET COUNT 296 K/MM3 (134-434); RDW 14.1 % (11.6-15.6); WHITE BLOOD COUNT 8.4 K/mm3 (4.0-10.0)
[2017-06-01 09:01] LABS: INR 1.12 (0.82-1.09); PROTHROMBIN TIME (PATIENT) 12.7 SEC (9.98-11.88)
--- NOTE | 2017-06-01 09:16 | PN ---
Progress Note, Physician History of Present Illness: No events. Comfortable - Current Medication List Current Medications: Active Medications Albuterol Sulfate (Ventolin 0.083% Nebulizer Soln -) 1 amp NEB Q6H PRN PRN Reason: SHORT OF BREATH/WHEEZING Benzocaine (Americaine 20% [place] -) 1 spray TP PRN PRN PRN Reason: PAIN Benzocaine (Americaine Ointment -) 1 applic TP PRN PRN PRN Reason: PAIN Bisacodyl (Dulcolax Suppository -) 10 mg RC PRN PRN PRN Reason: CONSTIPATION Ferrous Sulfate (Feosol -) 325 mg PO BID KATRINA Last Admin: 05/31/17 21:53 Dose: 325 mg Oxytocin/Lactated Ringer's (Lactated Ringer+ 15 Units Pitocin) 15 unit in 250 mls @ 1 mls/hr IVPB ASDIR KATRINA; 0.06 UNIT/HR PRN Reason: Protocol Last Titration: 05/27/17 08:15 Dose: 0 unit/hr, 0 mls/hr Parenteral Electrolytes (Plasma-Lyte 148 -) 1,000 mls @ 125 mls/hr IV ASDIR KATRINA Last Admin: 05/27/17 04:30 Dose: 125 mls/hr Piperacillin Sod/Tazobactam (Sod 3.375 gm/ Dextrose) 50 mls @ 100 mls/hr IVPB Q8H KATRINA PRN Reason: Protocol Last Admin: 06/01/17 06:20 Dose: 100 mls/hr Methylergonovine Maleate (Methergine Injection -) 0.2 mg IM Q4H PRN PRN Reason: EXCESSIVE BLEEDING (L&D) Oxycodone HCl (Roxicodone -) 5 mg PO Q4H PRN PRN Reason: PAIN Last Admin: 05/31/17 23:41 Dose: 5 mg Multivit/Folic Acid/Iron ( Vitamins (Sjr) -) 1 tab PO DAILY KATRINA Last Admin: 05/31/17 09:01 Dose: 1 tab Senna/Docusate Sodium (Pericolace -) 2 tablet PO HS PRN PRN Reason: CONSTIPATION Witch [place]et/Glycerin (Tucks Pads -) 1 pad TP PRN PRN PRN Reason: PAIN - Objective Vital Signs: Vital Signs Temperature 99.1 F 06/01/17 09:01 Pulse Rate 94 H 11/15/17 09:01 Respiratory Rate 20 06/01/17 09:01 Blood Pressure 128/79 06/01/17 09:01 O2 Sat by Pulse Oximetry (%) 97 06/01/17 00:02 Constitutional: Yes: Well Nourished, No Distress, Calm Eyes: Yes: Conjunctiva Clear Gastrointestinal: Yes: Soft. No: Tenderness Neurological: Yes: Alert, Oriented Labs: acute viral serology negative CBC, BMP 06/01/17 08:00 INR, PTT INR 1.07 (0.82-1.09) 05/31/17 12:20 Hepatic Panel Total Bilirubin 0.5 mg/dL (0.2-1.0) D 05/31/17 12:20 Direct Bilirubin 0.2 mg/dL (0.0-0.2) 05/31/17 12:20 AST 138 U/L (15-37) H D 05/31/17 12:20 ALT 114 U/L (12-78) H 05/31/17 12:20 Alkaline Phosphatase 184 U/L (45-117) H 05/31/17 12:20 Albumin 2.0 g/dl (3.4-5.0) L 05/31/17 12:20 Laboratory Results - last 24 hr 05/31/17 05/31/17 05/31/17 08:15 09:57 12:20 WBC RBC Hgb Hct MCV MCH MCHC RDW Plt Count MPV Neutrophils % Lymphocytes % Monocytes % Eosinophils % Basophils % PT with INR 12.10 H INR 1.07 Sodium 142 Potassium 3.5 Chloride 107 Carbon Dioxide 24 Anion Gap 11 BUN 7 Creatinine 0.5 L D Creat Clearance w eGFR > 60 Random Glucose 86 Calcium 7.8 L Total Bilirubin 0.7 D Direct Bilirubin AST 177 H ALT 129 H D Alkaline Phosphatase 183 H Total Protein 5.7 L Albumin 2.1 L Hepatitis A Ab Total Negative Hep Bs Antigen Negative Hep Bs Antibody Reactive Hep B Core Total Ab Negative 05/31/17 06/01/17 12:20 08:00 WBC 8.4 RBC 3.39 L Hgb 9.8 L D Hct 29.5 L MCV 87.0 MCH 28.8 MCHC 33.1 RDW 14.1 Plt Count 296 MPV 8.0 Neutrophils % 66.7 Lymphocytes % 21.5 D Monocytes % 10.1 Eosinophils % 1.4 D Basophils % 0.3 PT with INR INR Sodium Potassium Chloride Carbon Dioxide Anion Gap BUN Creatinine Creat Clearance w eGFR Random Glucose Calcium Total Bilirubin 0.5 D Direct Bilirubin 0.2 AST 138 H D ALT 114 H Alkaline Phosphatase 184 H Total Protein 5.5 L Albumin 2.0 L Hepatitis A Ab Total Hep Bs Antigen Hep Bs Antibody Hep B Core Total Ab - ....Imaging Ultrasound: Report Reviewed (keyla hepatobiliary, small pleural effusion) Problem List - Problems (1) Elevated liver enzymes Code(s): R74.8 - ABNORMAL LEVELS OF OTHER SERUM ENZYMES Assessment/Plan US, acutehep panel normal. liver chemistry improving. continue the same management hepatic panel tomorrow
[2017-06-01] MEDS: FERROUS SO4 325 MG TABLET (FP) PO SCH ×2 (09:21→22:46)
[2017-06-01] MEDS: PRENATAL VITAMINS W/ FOLIC ACID TABLET (FP) PO SCH (09:21)
[2017-06-01 09:23] LABS: ALBUMIN 1.8 g/dl (3.4-5.0); ANION GAP 9 (8-16); CALCIUM 7.5 mg/dL (8.5-10.1); CO2 25 mmol/L (21-32); GLUCOSE,RANDOM 87 mg/dL (74-106)
[2017-06-01 09:26] LABS: ALK PHOS 156 U/L (45-117); BILIRUBIN,TOTAL 0.5 mg/dL (0.2-1.0); CREATININE 0.5 mg/dL (0.55-1.02); SGOT/AST 53 U/L (15-37); SGPT/ALT 78 U/L (12-78); TOT PROT 5.1 g/dl (6.4-8.2)
[2017-06-01] MEDS ORDERED: POTASSIUM CHLORIDE TABS 20 MEQ TABLET.ER (FP) PO ONE (10:04)
--- NOTE | 2017-06-01 10:38 | PN ---
Physical Exam: SUBJECTIVE: Patient seen and examined at the bedside. She is walking around the room, denies shortness of breath. States she had 3 loose bms today, no abdominal pain, no nausea. She is using the incentive spirometer. OBJECTIVE: Remains afebrile, vitals stable oxygen saturations on room air stable Pulmonary notes reviewed GI notes reviewed Vital Signs Period Temp Pulse Resp BP Sys/Woodruff Pulse Ox Last 24 Hr 97.7 F-99.6 F 80-103 20-20 122-137/71-94 97 GENERAL: Awake, alert, and fully oriented, in no acute distress. HEAD: Normal with no signs of trauma. EYES: Pupils equal, round and reactive to light, extraocular movements intact, sclera anicteric, conjunctiva clear. No lid lag. EARS, NOSE, THROAT: Ears normal, nares patent, oropharynx clear without exudates. Moist mucous membranes. NECK: Normal range of motion, supple without lymphadenopathy, JVD, or masses. LUNGS: Clear upper lobes bilaterally, diminished air sounds at the bases bilaterally, with improvement, +dry cough persistent but improving HEART: Regular rate and rhythm, normal S1 and S2 without murmur, rub or gallop. ABDOMEN: s/p vaginal , mildly distended abdomen MUSCULOSKELETAL: Normal range of motion at all joints. No bony deformities or tenderness. No CVA tenderness. UPPER EXTREMITIES: trace edema of hand LOWER EXTREMITIES: bilateral lower extremities trace edema improving NEUROLOGICAL: Normal speech. gait stady PSYCHIATRIC: Cooperative. Good eye contact. Appropriate mood and affect. SKIN: Warm, dry, normal turgor, no rashes or lesions noted. Laboratory Results - last 24 hr 05/31/17 05/31/17 05/31/17 09:57 12:20 12:20 WBC RBC Hgb Hct MCV MCH MCHC RDW Plt Count MPV Neutrophils % Lymphocytes % Monocytes % Eosinophils % Basophils % PT with INR 12.10 H INR 1.07 Sodium Potassium Chloride Carbon Dioxide Anion Gap BUN Creatinine Creat Clearance w eGFR Random Glucose Calcium Total Bilirubin 0.5 D Direct Bilirubin 0.2 AST 138 H D ALT 114 H Alkaline Phosphatase 184 H Total Protein 5.5 L Albumin 2.0 L Hepatitis A Ab Total Negative Hep Bs Antigen Negative Hep Bs Antibody Reactive Hep B Core Total Ab Negative 06/01/17 06/01/17 06/01/17 08:00 08:00 08:00 WBC 8.4 RBC 3.39 L Hgb 9.8 L D Hct 29.5 L MCV 87.0 MCH 28.8 MCHC 33.1 RDW 14.1 Plt Count 296 MPV 8.0 Neutrophils % 66.7 Lymphocytes % 21.5 D Monocytes % 10.1 Eosinophils % 1.4 D Basophils % 0.3 PT with INR 12.70 H INR 1.12 Sodium 144 Potassium 3.4 L Chloride 110 H Carbon Dioxide 25 Anion Gap 9 BUN 7 Creatinine 0.5 L Creat Clearance w eGFR > 60 Random Glucose 87 Calcium 7.5 L Total Bilirubin 0.5 Direct Bilirubin AST 53 H D ALT 78 D Alkaline Phosphatase 156 H Total Protein 5.1 L Albumin 1.8 L Hepatitis A Ab Total Hep Bs Antigen Hep Bs Antibody Hep B Core Total Ab Active Medications Generic Name Dose Route Start Last Admin Trade Name Freq PRN Reason Stop Dose Admin Albuterol Sulfate 1 amp 05/31/17 09:41 Ventolin 0.083% Nebulizer Soln - NEB Q6H PRN SHORT OF BREATH/WHEEZING Benzocaine 1 spray 05/27/17 08:38 Americaine 20% [place] - TP PRN PRN PAIN Benzocaine 1 applic 05/27/17 08:38 Americaine Ointment - TP PRN PRN PAIN Bisacodyl 10 mg 05/27/17 08:38 Dulcolax Suppository - RC PRN PRN CONSTIPATION Ferrous Sulfate 325 mg 05/27/17 10:00 06/01/17 09:21 Feosol - PO 325 mg BID KATRINA Administration Oxytocin/Lactated Ringer's 15 unit in 250 mls @ 1 mls/hr 05/27/17 04:00 05/27 08:15 Lactated Ringer+ 15 Units Pitocin IVPB 0 unit/hr ASDIR KATRINA 0 mls/hr Protocol Titration 0.06 UNIT/HR Parenteral Electrolytes 1,000 mls @ 125 mls/hr 05/27/17 04:30 05/27/17 04:30 Plasma-Lyte 148 - IV 125 mls/hr ASDIR KATRINA Administration Piperacillin Sod/Tazobactam 50 mls @ 100 mls/hr 05/30/17 22:00 06/01/17 06:20 Sod 3.375 gm/ Dextrose IVPB 100 mls/hr Q8H KATRINA Administration Protocol Methylergonovine Maleate 0.2 mg 05/27/17 08:38 Methergine Injection - IM Q4H PRN EXCESSIVE BLEEDING (L&D) Oxycodone HCl 5 mg 05/31/17 13:04 05/31/17 23:41 Roxicodone - PO 5 mg Q4H PRN Administration PAIN Multivit/Folic Acid/Iron 1 tab 05/27/17 10:00 06/01/17 09:21 Vitamins (Sjr) - PO 1 tab DAILY KATRINA Administration Senna/Docusate Sodium 2 tablet 05/28/17 22:00 Pericolace - PO HS PRN CONSTIPATION Witch Yanet/Glycerin 1 pad 05/27/17 08:38 Tucks Pads - TP PRN PRN PAIN ASSESSMENT/PLAN: Patient is a 26 year old, grava 2, induced at 41 weeks, post day #5. Who was evaluated for persistent post fever, right flank pain and dry cough with orthopnea. Imaging: Vascular study, bilateral leg 05/30/2017: No evidence of DVT in both lower extremities Ultrasound/Kidney/renal ultrasound 05/30/2017: Normal sized kidney without hydronephrosis, a 0.7 x 0.5 cm round echogenic lesion on the left kidney is likely a non obstructing calculus, no shadowing right renal calculus identified. Bilateral pleural effusions Chest PA/Lateral 05/30/2017: basilar atelectasis and pleural reaction, prominent mediastinum and clear upper lung arriaga, bones and soft tissue intact. No prior studies to compare CT/Abdomen & Pelvis CT: bibasal consolidation/pneumonia and small bilateral pleural effusion, right more than left, hepatomegaly, mild mesenteric edema and small amount of ascites of uncertain etiology. Multiple small bilateral non obstructing renal stones measuring up to 4mm without gross evidence of hydroureter or obstructing ureteral stone. Partially distended urinary bladder without wall thickening or intraluminal stones. Large uterus ID: Fever, resolved Fever likely secondary to + ecoli in urine cultures, resolved, afebrile since On Ceftriaxone IV since 05/30 for ecoli in urine cultures, ceftriaxone stopped on 05/31 Zosyn started on 05/30 started for presumed pnemonia Negative for flu WBC within normal limits, vitals stable ID following Pulmonary: Presumed pneumonia CT suggestive of biltateral pneumonia and Zosyn started on 05/30 Pulmonary notes reviewed, as per temporary office assistant pneumonia is unlikely. Patient has pleural effusions and ascites likely secondary to fluid overload Shortness of breath, intermittent episodes with ambulation, improving dry cough, persistent but improving Tolerating room air, oxygen saturations 95% Incentive spirometer used by pt with good effect Albuterol as needed Negative for flu Renal: Nephrolithiasis, acute on chronic Kidney ultrasound suggestive of a 0.7 x 0.5 cm round echogenic lesion on the left kidney is likely a non obstructing calculus CT shows multiple small bilateral non obstructing renal stones measuring up to 4mm without gross evidence of hydroureter or obstructing ureteral stone. Currently she is asymptomatic, denies flank pain Defer on pain meds as she is currently lactating NO IVF, appears fluid overloaded, encourage PO intake Urology consult on discharge GI: Elevated ast/alt, resolved AST 198>53 ALT 88>78 Repeat lab work within 1 week with PCP as an outpatient to monitor trend Discussed with GI Hepatitis panel reviewed F.E.N. Fluids: tolerating PO, hold off on IVF 2/ to fluid overload Electrolytes: hypokalemia, repleted with K 40meq po x 1 Nutrition: regular diet Prophylaxis: DVT: Ambulatory young patient GI: deferred Disposition. Consider discharge when cleared by pulmonary and ID. On discharge will need to follow up with her PCP to monitor ast/alt as suggested by GI physician and urology follow up for chronic nephrolithiasis. Thank you for the consult. Visit type - Emergency Visit Emergency Visit: Yes ED Registration Date: 05/26/17 Care time: The patient presented to the Emergency Department on the above date and was hospitalized for further evaluation of their emergent condition. - New Patient This patient is new to me today: No - Critical Care Critical Care patient: No - Discharge Referral Referred to [facility] No
--- NOTE | 2017-06-01 10:45 | PN ---
Physical Exam: Pulmonary progress note, resident SUBJECTIVE: Patient seen and examined at bedside. She is doing much better in term of breathing, still coughing with little phlegm, no fever, chills, N/V/. head 3 BM today morning. OBJECTIVE: Vital Signs Period Temp Pulse Resp BP Sys/Woodruff Pulse Ox Last 24 Hr 97.7 F-99.6 F 80-103 20-20 122-137/71-94 97 GENERAL: The patient is awake, alert, and fully oriented, in no acute distress. HEAD: Normal with no signs of trauma. EYES: PERRL, extraocular movements intact, sclera anicteric, conjunctiva clear. No ptosis. ENT: Ears normal, nares patent, oropharynx clear without exudates, moist mucous membranes. NECK: Trachea midline, full range of motion, supple. LUNGS: Breath sounds equal, clear to auscultation bilaterally, no wheezes, no crackles, no accessory muscle use. HEART: Regular rate and rhythm, S1, S2 without murmur, rub or gallop. ABDOMEN: Soft, nontender, nondistended, normoactive bowel sounds, no guarding, no rebound, no hepatosplenomegaly, no masses. EXTREMITIES: 2+ pulses, warm, well-perfused, no edema. NEUROLOGICAL: Cranial nerves II through XII grossly intact. Normal speech, gait not observed. PSYCH: Normal mood, normal affect. SKIN: Warm, dry, normal turgor, no rashes or lesions noted Laboratory Results - last 24 hr 05/31/17 05/31/17 05/31/17 09:57 12:20 12:20 WBC RBC Hgb Hct MCV MCH MCHC RDW Plt Count MPV Neutrophils % Lymphocytes % Monocytes % Eosinophils % Basophils % PT with INR 12.10 H INR 1.07 Sodium Potassium Chloride Carbon Dioxide Anion Gap BUN Creatinine Creat Clearance w eGFR Random Glucose Calcium Total Bilirubin 0.5 D Direct Bilirubin 0.2 AST 138 H D ALT 114 H Alkaline Phosphatase 184 H Total Protein 5.5 L Albumin 2.0 L Hepatitis A Ab Total Negative Hep Bs Antigen Negative Hep Bs Antibody Reactive Hep B Core Total Ab Negative 06/01/17 06/01/17 06/01/17 08:00 08:00 08:00 WBC 8.4 RBC 3.39 L Hgb 9.8 L D Hct 29.5 L MCV 87.0 MCH 28.8 MCHC 33.1 RDW 14.1 Plt Count 296 MPV 8.0 Neutrophils % 66.7 Lymphocytes % 21.5 D Monocytes % 10.1 Eosinophils % 1.4 D Basophils % 0.3 PT with INR 12.70 H INR 1.12 Sodium 144 Potassium 3.4 L Chloride 110 H Carbon Dioxide 25 Anion Gap 9 BUN 7 Creatinine 0.5 L Creat Clearance w eGFR > 60 Random Glucose 87 Calcium 7.5 L Total Bilirubin 0.5 Direct Bilirubin AST 53 H D ALT 78 D Alkaline Phosphatase 156 H Total Protein 5.1 L Albumin 1.8 L Hepatitis A Ab Total Hep Bs Antigen Hep Bs Antibody Hep B Core Total Ab Active Medications Generic Name Dose Route Start Last Admin Trade Name Freq PRN Reason Stop Dose Admin Albuterol Sulfate 1 amp 05/31/17 09:41 Ventolin 0.083% Nebulizer Soln - NEB Q6H PRN SHORT OF BREATH/WHEEZING Benzocaine 1 spray 05/27/17 08:38 Americaine 20% [place] - TP PRN PRN PAIN Benzocaine 1 applic 05/27/17 08:38 Americaine Ointment - TP PRN PRN PAIN Bisacodyl 10 mg 05/27/17 08:38 Dulcolax Suppository - RC PRN PRN CONSTIPATION Ferrous Sulfate 325 mg 05/27/17 10:00 06/01/17 09:21 Feosol - PO 325 mg BID KATRINA Administration Oxytocin/Lactated Ringer's 15 unit in 250 mls @ 1 mls/hr 05/27/17 04:00 05/27 08:15 Lactated Ringer+ 15 Units Pitocin IVPB 0 unit/hr ASDIR KATRINA 0 mls/hr Protocol Titration 0.06 UNIT/HR Parenteral Electrolytes 1,000 mls @ 125 mls/hr 05/27/17 04:30 05/27/17 04:30 Plasma-Lyte 148 - IV 125 mls/hr ASDIR KATRINA Administration Piperacillin Sod/Tazobactam 50 mls @ 100 mls/hr 05/30/17 22:00 06/01/17 06:20 Sod 3.375 gm/ Dextrose IVPB 100 mls/hr Q8H KATRINA Administration Protocol Methylergonovine Maleate 0.2 mg 05/27/17 08:38 Methergine Injection - IM Q4H PRN EXCESSIVE BLEEDING (L&D) Oxycodone HCl 5 mg 05/31/17 13:04 05/31/17 23:41 Roxicodone - PO 5 mg Q4H PRN Administration PAIN Multivit/Folic Acid/Iron 1 tab 05/27/17 10:00 06/01/17 09:21 Vitamins (Sjr) - PO 1 tab DAILY KATRINA Administration Senna/Docusate Sodium 2 tablet 05/28/17 22:00 Pericolace - PO HS PRN CONSTIPATION Witch Yanet/Glycerin 1 pad 05/27/17 08:38 Tucks Pads - TP PRN PRN PAIN CBC, BMP 06/01/17 08:00 06/01/17 08:00 Intake & Output 05/31/17 06/01/17 06/01/17 23:59 07:59 15:59 Intake Total 50 Balance 50 Microbiology 05/30/17 16:45 Blood - Peripheral Venous Blood Culture - Preliminary NO GROWTH OBTAINED AFTER 24 HOURS, INCUBATION TO CONTINUE FOR 4 DAYS. 05/30/17 16:45 Blood - Peripheral Venous Blood Culture - Preliminary NO GROWTH OBTAINED AFTER 24 HOURS, INCUBATION TO CONTINUE FOR 4 DAYS. 05/27/17 11:15 Blood - Peripheral Venous Blood Culture - Preliminary NO GROWTH OBTAINED AFTER 96 HOURS, INCUBATION TO CONTINUE FOR 1 DAYS. 05/27/17 11:24 Blood - Peripheral Venous Blood Culture - Preliminary NO GROWTH OBTAINED AFTER 96 HOURS, INCUBATION TO CONTINUE FOR 1 DAYS. 05/30/17 19:30 Nasopharyngeal Swab Influenza Types A,B Antigen (BECKA) - Final 05/30/17 19:30 Nasopharyngeal Swab - Final 05/27/17 11:35 Urine - Urine Clean Catch Urine Culture - Final Escherichia Coli Imaging: Vascular study, bilateral leg 05/30/2017: No evidence of DVT in both lower extremities Ultrasound/Kidney/renal ultrasound 05/30/2017: Normal sized kidney without hydronephrosis, a 0.7 x 0.5 cm round echogenic lesion on the left kidney is likely a non obstructing calculus, no shadowing right renal calculus identified. Bilateral pleural effusions Chest PA/Lateral 05/30/2017: basilar atelectasis and pleural reaction, prominent mediastinum and clear upper lung arriaga, bones and soft tissue intact. No prior studies to compare CT/Abdomen & Pelvis CT: bibasal consolidation/pneumonia and small bilateral pleural effusion, right more than left, hepatomegaly, mild mesenteric edema and small amount of ascites of uncertain etiology. Multiple small bilateral non obstructing renal stones measuring up to 4mm without gross evidence of hydroureter or obstructing ureteral stone. Partially distended urinary bladder without wall thickening or intraluminal stones. Large uterus ASSESSMENT/PLAN: Patient is a 26 year old, grava 2, post day #4. Who was evaluated today for persistent post fever, right flank pain and dry cough with orthopnea. #Fever 2/2 UTI , unlikely pneumonia , afebrile last 48 hour # Transaminitis # Anemia delutional vs Follow up as out patient #Nephrolithiais ,acute on chronic #Volume Overload #Pleural Effusion #Compressive Atelectasis, acute, unlikely pneumonia * Shortness of breath, intermittent episodes with ambulation, improving * dry cough, persistent,+ orthopnea * Chest xray as above * CT/abd/pelvis: bibasal pneumonia with small bilateral pleural effusions * Now on Zosyn as per ID (05/30 ) * Tolerating room air, prn oxygen supplementation @ 2 liters * Incentive spirometery * Albuterol as needed * Negative for flu * encourage ambulate * Dc IV fluids , Encourage oral intake * Blod cx no growth, Urine cx E.coli * Monitor clinically # DVT proph: SCDs
--- NOTE | 2017-06-01 12:48 | PN ---
Progress Note, Physician History of Present Illness: feels slightly better temp in 99 still with cough sat in low 90s still - Current Medication List Current Medications: Active Medications Albuterol Sulfate (Ventolin 0.083% Nebulizer Soln -) 1 amp NEB Q6H PRN PRN Reason: SHORT OF BREATH/WHEEZING Benzocaine (Americaine 20% [place] -) 1 spray TP PRN PRN PRN Reason: PAIN Benzocaine (Americaine Ointment -) 1 applic TP PRN PRN PRN Reason: PAIN Bisacodyl (Dulcolax Suppository -) 10 mg RC PRN PRN PRN Reason: CONSTIPATION Ferrous Sulfate (Feosol -) 325 mg PO BID KATRINA Last Admin: 06/01/17 09:21 Dose: 325 mg Oxytocin/Lactated Ringer's (Lactated Ringer+ 15 Units Pitocin) 15 unit in 250 mls @ 1 mls/hr IVPB ASDIR KATRINA; 0.06 UNIT/HR PRN Reason: Protocol Last Titration: 05/27/17 08:15 Dose: 0 unit/hr, 0 mls/hr Parenteral Electrolytes (Plasma-Lyte 148 -) 1,000 mls @ 125 mls/hr IV ASDIR KATRINA Last Admin: 05/27/17 04:30 Dose: 125 mls/hr Piperacillin Sod/Tazobactam (Sod 3.375 gm/ Dextrose) 50 mls @ 100 mls/hr IVPB Q8H KATRINA PRN Reason: Protocol Last Admin: 06/01/17 06:20 Dose: 100 mls/hr Methylergonovine Maleate (Methergine Injection -) 0.2 mg IM Q4H PRN PRN Reason: EXCESSIVE BLEEDING (L&D) Oxycodone HCl (Roxicodone -) 5 mg PO Q4H PRN PRN Reason: PAIN Last Admin: 05/31/17 23:41 Dose: 5 mg Multivit/Folic Acid/Iron ( Vitamins (Sjr) -) 1 tab PO DAILY KATRINA Last Admin: 06/01/17 09:21 Dose: 1 tab Senna/Docusate Sodium (Pericolace -) 2 tablet PO HS PRN PRN Reason: CONSTIPATION Witch Yanet/Glycerin (Tucks Pads -) 1 pad TP PRN PRN PRN Reason: PAIN - Objective Vital Signs: Vital Signs Temperature 99.1 F 06/01/17 09:01 Pulse Rate 94 H 06/01/17 09:01 Respiratory Rate 20 06/01/17 09:01 Blood Pressure 128/79 06/01/17 09:01 O2 Sat by Pulse Oximetry (%) 97 06/01/17 00:02 Constitutional: Yes: No Distress, Calm Cardiovascular: Yes: Regular Rate and Rhythm Respiratory: Yes: Regular, Poor Air Entry, Other (crackles) Gastrointestinal: Yes: Normal Bowel Sounds, Soft Musculoskeletal: Yes: WNL Extremities: Yes: WNL Neurological: Yes: Alert, Oriented Psychiatric: Yes: Alert, Oriented Labs: CBC, BMP 06/01/17 08:00 06/01/17 08:00 INR, PTT INR 1.12 (0.82-1.09) 06/01/17 08:00 Assessment/Plan UTI Nephrolithiasis uti Pleural Effusion Compressive Atelectasis fever plan continue zosyn' incentive yosef we will decide how patient does and how the sats behave before making final decision rest as per the team
--- NOTE | 2017-06-01 13:10 | PN ---
Teaching Attending Note Name of Resident: Pedro Luis Parr ATTENDING PHYSICIAN STATEMENT I saw and evaluated the patient. I reviewed the resident's note and discussed the case with the resident. I agree with the resident's findings and plan as documented. pulmonary alert,nad,+ dry cough,-sob,afebrile. O2 SAT 976% ON RA ASSESSMENT AND PLAN: s/p UTI Nephrolithiasis Volume Overload Pleural Effusion Compressive Atelectasis - antibiotics per ID - do not suspect pneumonia at this time - clinical picture and exam consistent with volume overload leading to ascites , pleural effusions and subsequent compressive atelectasis - incentive spirometry - inhaled bronchodilators prn - ambulate - minimize IVF - DVT prophylaxis DR GATICA Problem List - Problems (1) Dyspnea Code(s): R06.00 - DYSPNEA, UNSPECIFIED (2) Vaginal delivery Code(s): O80 - ENCOUNTER FOR FULL-TERM UNCOMPLICATED DELIVERY (3) DVT prophylaxis Code(s): XAV9869 - (4) Kidney stone on right side Code(s): N20.0 - CALCULUS OF KIDNEY (5) Hypoxemia requiring supplemental oxygen Code(s): R09.02 - HYPOXEMIA; Z99.81 - DEPENDENCE ON SUPPLEMENTAL OXYGEN (6) Pleural effusion Code(s): J90 - PLEURAL EFFUSION, NOT ELSEWHERE CLASSIFIED
[2017-06-01 13:29] LABS: BILIRUBIN,DIRECT 0.2 mg/dL (0.0-0.2)
[2017-06-01] MEDS: oxyCODONE HCL 5 MG TABLET PO PRN (22:46)
[2017-06-02] MEDS: PIPERACILLIN/TAZOB 3.375 GM 3.375 GM in DEXTROSE 5%-WATER - 50 ML IVPB SCH ×2 (06:17→15:19)
[2017-06-02 08:33] LABS: MCH 28.8 pg (25.7-33.7); MCHC 33.3 g/dl (32.0-36.0); MEAN CELL VOLUME 86.6 fl (80-96); MEAN PLT VOLUME 8.1 fl (7.5-11.1); PLATELET COUNT 331 K/MM3 (134-434); RDW 14.1 % (11.6-15.6); WHITE BLOOD COUNT 7.8 K/mm3 (4.0-10.0)
[2017-06-02 08:45] LABS: ALBUMIN 1.8 g/dl (3.4-5.0); ANION GAP 7 (8-16); CALCIUM 7.7 mg/dL (8.5-10.1); CO2 25 mmol/L (21-32); CREATININE 0.5 mg/dL (0.55-1.02); GLUCOSE,RANDOM 105 mg/dL (74-106); SGOT/AST 31 U/L (15-37); SGPT/ALT 60 U/L (12-78)
[2017-06-02 08:46] LABS: ALK PHOS 145 U/L (45-117); BILIRUBIN,TOTAL 0.3 mg/dL (0.2-1.0); TOT PROT 5.2 g/dl (6.4-8.2)
[2017-06-02] MEDS: PRENATAL VITAMINS W/ FOLIC ACID TABLET (FP) PO SCH (09:14)
[2017-06-02] MEDS: FERROUS SO4 325 MG TABLET (FP) PO SCH (09:14)
--- NOTE | 2017-06-02 09:23 | PN ---
Post Progress Note - Subjective Subjective: 26 yo status post vaginal delivery 6 days ago seen and evaluated. She's out of bed to chair. She's afebrile but antibiotic continues. Post Day: 6 Type of Delivery: Vital Signs: Vital Signs Temperature 98.9 F 06/02/17 06:00 Pulse Rate 101 H 06/02/17 06:00 Respiratory Rate 20 06/02/17 06:00 Blood Pressure 119/90 06/02/17 06:00 O2 Sat by Pulse Oximetry (%) 96 06/02/17 06:00 Breast Exam: Yes: Other (No engorgement) Uterus: Yes: Fundus Firm Abdomen/GI: Yes: Abdomen soft, Tolerating PO Lochia: Yes: Rubra Lochia, amount: Small Extremities: Yes: Calves non-tender Activity: Ambulating - Labs Labs: CBC WBC 7.8 K/mm3 (4.0-10.0) 06/02/17 07:00 RBC 3.36 M/mm3 (3.60-5.2) L 06/02/17 07:00 Hgb 9.7 GM/dL (10.7-15.3) L 06/02/17 07:00 Hct 29.0 % (32.4-45.2) L 06/02/17 07:00 MCV 86.6 fl (80-96) 06/02/17 07:00 MCH 28.8 pg (25.7-33.7) 06/02/17 07:00 MCHC 33.3 g/dl (32.0-36.0) 06/02/17 07:00 RDW 14.1 % (11.6-15.6) 06/02/17 07:00 Plt Count 331 K/MM3 (134-434) 06/02/17 07:00 MPV 8.1 fl (7.5-11.1) 06/02/17 07:00 Neutrophils % [employer] 06/02/17 07:00 Lymphocytes % [employer] Driver 06/02/17 07:00 Monocytes % [employer] Driver 06/02/17 07:00 Eosinophils % [employer] Driver 06/02/17 07:00 Basophils % [employer] Driver 06/02/17 07:00 Assessment/Plan Status post vaginal delivery fever Continue IV antibiotic Continue management as per hospitalist
[2017-06-02 10:49] VITALS: PULSE 94
[2017-06-02 12:16] LABS: TOTAL CELLS COUNTED 100
[2017-06-02 12:17] LABS: PLATELET ESTIMATE ADEQUATE
[2017-06-02 12:40] LABS: BASOPHIL 0.5 % (0-2.0); EOSINOPHIL 2.5 % (0-4.5); MCH 28.2 pg (25.7-33.7); MCHC 32.2 g/dl (32.0-36.0); MEAN CELL VOLUME 87.5 fl (80-96); MEAN PLT VOLUME 8.2 fl (7.5-11.1); NEUTROPHILS 55.5 % (42.8-82.8); PLATELET COUNT 364 K/MM3 (134-434); WHITE BLOOD COUNT 7.2 K/mm3 (4.0-10.0)
[2017-06-02 12:53] LABS: INR 1.1 (0.82-1.09); PROTHROMBIN TIME (PATIENT) 12.4 SEC (9.98-11.88)
[2017-06-02 13:00] LABS: ALBUMIN 2.1 g/dl (3.4-5.0); BILIRUBIN,DIRECT < 0.2 mg/dL (0.0-0.2); BILIRUBIN,TOTAL 0.3 mg/dL (0.2-1.0); SGOT/AST 37 U/L (15-37); SGPT/ALT 65 U/L (12-78); TOT PROT 5.9 g/dl (6.4-8.2)
[2017-06-02 13:01] LABS: ALK PHOS 157 U/L (45-117)
--- NOTE | 2017-06-02 13:10 | PN ---
Progress Note (short form) - Note Progress Note: PULMONARY Denies shortness of breath or chest pain. No fevers or chills. Swelling improving. Anxious to go home. Last Vital Signs Temp Pulse Resp BP Pulse Ox 97.9 F 94 H 20 131/94 98 06/02/17 10:00 06/02/17 10:00 06/02/17 10:00 06/02/17 10:00 06/02/17 10:00 Gen: NAD at rest Heart: RRR Lung: decreased breath sounds at the bases Abd: softly distended, nontender Ext: no edema CBC, BMP 06/02/17 12:10 06/02/17 07:00 Active Medications Albuterol Sulfate (Ventolin 0.083% Nebulizer Soln -) 1 amp NEB Q6H PRN PRN Reason: SHORT OF BREATH/WHEEZING Benzocaine (Americaine 20% [place] -) 1 spray TP PRN PRN PRN Reason: PAIN Benzocaine (Americaine Ointment -) 1 applic TP PRN PRN PRN Reason: PAIN Bisacodyl (Dulcolax Suppository -) 10 mg RC PRN PRN PRN Reason: CONSTIPATION Ferrous Sulfate (Feosol -) 325 mg PO BID KATRINA Last Admin: 06/02/17 09:14 Dose: 325 mg Oxytocin/Lactated Ringer's (Lactated Ringer+ 15 Units Pitocin) 15 unit in 250 mls @ 1 mls/hr IVPB ASDIR KATRINA; 0.06 UNIT/HR PRN Reason: Protocol Last Titration: 05/27/17 08:15 Dose: 0 unit/hr, 0 mls/hr Parenteral Electrolytes (Plasma-Lyte 148 -) 1,000 mls @ 125 mls/hr IV ASDIR KATRINA Last Admin: 05/27/17 04:30 Dose: 125 mls/hr Piperacillin Sod/Tazobactam (Sod 3.375 gm/ Dextrose) 50 mls @ 100 mls/hr IVPB Q8H KATRINA PRN Reason: Protocol Last Admin: 06/02/17 06:17 Dose: 100 mls/hr Methylergonovine Maleate (Methergine Injection -) 0.2 mg IM Q4H PRN PRN Reason: EXCESSIVE BLEEDING (L&D) Oxycodone HCl (Roxicodone -) 5 mg PO Q4H PRN PRN Reason: PAIN Last Admin: 06/01/17 22:46 Dose: 5 mg Multivit/Folic Acid/Iron ( Vitamins (Sjr) -) 1 tab PO DAILY KATRINA Last Admin: 06/02/17 09:14 Dose: 1 tab Senna/Docusate Sodium (Pericolace -) 2 tablet PO HS PRN PRN Reason: CONSTIPATION Witch Yanet/Glycerin (Tucks Pads -) 1 pad TP PRN PRN PRN Reason: PAIN A/P s/p UTI Nephrolithiasis Volume Overload Pleural Effusion Compressive Atelectasis - antibiotics per ID - do not suspect pneumonia at this time - clinical picture and exam consistent with volume overload leading to ascites , pleural effusions and subsequent compressive atelectasis - incentive spirometry - inhaled bronchodilators as needed - ambulate - minimize IVF - can d/c home from pulmonary standpoint
--- NOTE | 2017-06-02 13:50 | PN ---
Physical Exam: SUBJECTIVE: Patient seen and examined. She was ambulating in the hallways, denies any discomfort or dyspnea. States she feels well, wants to go home. Her was also cleared to go home today. OBJECTIVE: Lung sounds improved, no dyspnea Cleared by Pulmonary and ID to go home. Lung sounds much improved, tolerating room air, oxygen sats 98% even with ambulation Vital Signs Period Temp Pulse Resp BP Sys/Woodruff Pulse Ox Last 24 Hr 97.9 F-99.7 F 88-101 20-22 119-137/73-96 91-98 GENERAL: Awake, alert, and fully oriented, in no acute distress. HEAD: Normal with no signs of trauma. EYES: Pupils equal, round and reactive to light, extraocular movements intact, sclera anicteric, conjunctiva clear. No lid lag. EARS, NOSE, THROAT: Ears normal, nares patent, oropharynx clear without exudates. Moist mucous membranes. NECK: Normal range of motion, supple without lymphadenopathy, JVD, or masses. LUNGS: Clear lung sounds, tolerating room air, oxygen sats stable with ambulation HEART: Regular rate and rhythm, normal S1 and S2 without murmur, rub or gallop. ABDOMEN: s/p vaginal , mildly distended abdomen MUSCULOSKELETAL: Normal range of motion at all joints. No bony deformities or tenderness. No CVA tenderness. UPPER EXTREMITIES: trace edema of hand LOWER EXTREMITIES: No edema NEUROLOGICAL: Normal speech. gait steady PSYCHIATRIC: Cooperative. Good eye contact. Appropriate mood and affect. SKIN: Warm, dry, normal turgor, no rashes or lesions noted. Laboratory Results - last 24 hr 06/02/17 06/02/17 06/02/17 07:00 07:00 12:10 WBC 7.8 7.2 RBC 3.36 L 3.63 Hgb 9.7 L 10.2 L Hct 29.0 L 31.8 L MCV 86.6 87.5 MCH 28.8 28.2 MCHC 33.3 32.2 RDW 14.1 14.0 Plt Count 331 364 MPV 8.1 8.2 Total Counted 100 Neutrophils % Activity Leader 55.5 Neutrophils % (Manual) 58.0 Band Neutrophils % No Result Required. Lymphocytes % Activity Leader 31.1 D Lymphocytes % (Manual) 30.0 Monocytes % Activity Leader 10.4 H Monocytes % (Manual) 9 Eosinophils % Activity Leader 2.5 Eosinophils % (Manual) 3.0 Basophils % Activity Leader 0.5 Platelet Estimate Adequate PT with INR INR Sodium 144 Potassium 3.6 Chloride 112 H Carbon Dioxide 25 Anion Gap 7 L BUN 6 L Creatinine 0.5 L Creat Clearance w eGFR > 60 Random Glucose 105 D Calcium 7.7 L Total Bilirubin 0.3 D Direct Bilirubin AST 31 D ALT 60 D Alkaline Phosphatase 145 H Total Protein 5.2 L Albumin 1.8 L 06/02/17 06/02/17 12:10 12:10 WBC RBC Hgb Hct MCV MCH MCHC RDW Plt Count MPV Total Counted Neutrophils % Neutrophils % (Manual) Band Neutrophils % Lymphocytes % Lymphocytes % (Manual) Monocytes % Monocytes % (Manual) Eosinophils % Eosinophils % (Manual) Basophils % Platelet Estimate PT with INR 12.40 H INR 1.10 Sodium Potassium Chloride Carbon Dioxide Anion Gap BUN Creatinine Creat Clearance w eGFR Random Glucose Calcium Total Bilirubin 0.3 Direct Bilirubin < 0.2 AST 37 ALT 65 Alkaline Phosphatase 157 H Total Protein 5.9 L Albumin 2.1 L Active Medications Generic Name Dose Route Start Last Admin Trade Name Freq PRN Reason Stop Dose Admin Albuterol Sulfate 1 amp 05/31/17 09:41 Ventolin 0.083% Nebulizer Soln - NEB Q6H PRN SHORT OF BREATH/WHEEZING Benzocaine 1 spray 05/27/17 08:38 Americaine 20% [place] - TP PRN PRN PAIN Benzocaine 1 applic 05/27/17 08:38 Americaine Ointment - TP PRN PRN PAIN Bisacodyl 10 mg 05/27/17 08:38 Dulcolax Suppository - RC PRN PRN CONSTIPATION Ferrous Sulfate 325 mg 05/27/17 10:00 06/02/17 09:14 Feosol - PO 325 mg BID KATRINA Administration Oxytocin/Lactated Ringer's 15 unit in 250 mls @ 1 mls/hr 05/27/17 04:00 05/27 08:15 Lactated Ringer+ 15 Units Pitocin IVPB 0 unit/hr ASDIR KATRINA 0 mls/hr Protocol Titration 0.06 UNIT/HR Parenteral Electrolytes 1,000 mls @ 125 mls/hr 05/27/17 04:30 05/27/17 04:30 Plasma-Lyte 148 - IV 125 mls/hr ASDIR KATRINA Administration Piperacillin Sod/Tazobactam 50 mls @ 100 mls/hr 05/30/17 22:00 06/02/17 06:17 Sod 3.375 gm/ Dextrose IVPB 100 mls/hr Q8H KATRINA Administration Protocol Methylergonovine Maleate 0.2 mg 05/27/17 08:38 Methergine Injection - IM Q4H PRN EXCESSIVE BLEEDING (L&D) Oxycodone HCl 5 mg 05/31/17 13:04 06/01/17 22:46 Roxicodone - PO 5 mg Q4H PRN Administration PAIN Multivit/Folic Acid/Iron 1 tab 05/27/17 10:00 06/02/17 09:14 Vitamins (Sjr) - PO 1 tab DAILY KATRINA Administration Senna/Docusate Sodium 2 tablet 05/28/17 22:00 Pericolace - PO HS PRN CONSTIPATION Witch Yanet/Glycerin 1 pad 05/27/17 08:38 Tucks Pads - TP PRN PRN PAIN ASSESSMENT/PLAN: Patient is a 26 year old, grava 2, induced at 41 weeks, post day #5. Who was evaluated for persistent post fever, right flank pain and dry cough with orthopnea. Imaging: Vascular study, bilateral leg 05/30/2017: No evidence of DVT in both lower extremities Ultrasound/Kidney/renal ultrasound 05/30/2017: Normal sized kidney without hydronephrosis, a 0.7 x 0.5 cm round echogenic lesion on the left kidney is likely a non obstructing calculus, no shadowing right renal calculus identified. Bilateral pleural effusions Chest PA/Lateral 05/30/2017: basilar atelectasis and pleural reaction, prominent mediastinum and clear upper lung arriaga, bones and soft tissue intact. No prior studies to compare CT/Abdomen & Pelvis CT: bibasal consolidation/pneumonia and small bilateral pleural effusion, right more than left, hepatomegaly, mild mesenteric edema and small amount of ascites of uncertain etiology. Multiple small bilateral non obstructing renal stones measuring up to 4mm without gross evidence of hydroureter or obstructing ureteral stone. Partially distended urinary bladder without wall thickening or intraluminal stones. Large uterus ID: Fever, resolved Fever likely secondary to + ecoli in urine cultures, resolved, afebrile since Treated with Ceftriaxone and Zosyn during hospitalization Treat with Omnicef 600mg daily for 3 more days Negative for flu WBC within normal limits, vitals stable, tolerating oxygen on room air, no dyspnea with exertion ID following Pulmonary: Presumed pneumonia as per CT scan CT suggestive of biltateral pneumonia and Zosyn started on 05/30 Pulmonary notes reviewed, as per hospice massage therapist pneumonia is unlikely. Patient has pleural effusions and ascites likely secondary to fluid overload Shortness of breath, intermittent episodes with ambulation, resolved dry cough, minimal Tolerating room air, oxygen saturations 98% Negative for flu Renal: Nephrolithiasis, acute on chronic Kidney ultrasound suggestive of a 0.7 x 0.5 cm round echogenic lesion on the left kidney is likely a non obstructing calculus CT shows multiple small bilateral non obstructing renal stones measuring up to 4mm without gross evidence of hydroureter or obstructing ureteral stone. Currently she is asymptomatic, denies flank pain Defer on pain meds as she is currently lactating NO IVF, appears fluid overloaded, encourage PO intake Urology consult on discharge GI: Elevated ast/alt, resolved AST 198>37 ALT 88>65 Repeat lab work within 1 week with PCP as an outpatient to monitor trend Discharge Plan: Patient cleared by pulmonary and ID for discharge. (1) On discharge will need to follow up with her PCP to monitor ast/alt as suggested by GI physician and urology (Dr. Carrillo) follow up for chronic nephrolithiasis. (2) Take Omnicef 600 mg daily for 3 more days, starting tomorrow 06/03/2017 until 06/05/17. Called in to patient's pharmacy Thank you for this consult. Visit type - Emergency Visit Emergency Visit: Yes ED Registration Date: 05/26/17 Care time: The patient presented to the Emergency Department on the above date and was hospitalized for further evaluation of their emergent condition. - New Patient This patient is new to me today: No - Critical Care Critical Care patient: No - Discharge Referral Referred to [facility] No
[2017-06-02 14:14] VITALS: BP 139/90; TEMP 98.2
--- NOTE | 2017-06-02 15:20 | PN ---
Progress Note, Physician History of Present Illness: patient doing well no complaints minimal cough - Current Medication List Current Medications: Active Medications Albuterol Sulfate (Ventolin 0.083% Nebulizer Soln -) 1 amp NEB Q6H PRN PRN Reason: SHORT OF BREATH/WHEEZING Benzocaine (Americaine 20% [place] -) 1 spray TP PRN PRN PRN Reason: PAIN Benzocaine (Americaine Ointment -) 1 applic TP PRN PRN PRN Reason: PAIN Bisacodyl (Dulcolax Suppository -) 10 mg RC PRN PRN PRN Reason: CONSTIPATION Ferrous Sulfate (Feosol -) 325 mg PO BID KATRINA Last Admin: 06/02/17 09:14 Dose: 325 mg Oxytocin/Lactated Ringer's (Lactated Ringer+ 15 Units Pitocin) 15 unit in 250 mls @ 1 mls/hr IVPB ASDIR KATRINA; 0.06 UNIT/HR PRN Reason: Protocol Last Titration: 05/27/17 08:15 Dose: 0 unit/hr, 0 mls/hr Parenteral Electrolytes (Plasma-Lyte 148 -) 1,000 mls @ 125 mls/hr IV ASDIR KATRINA Last Admin: 05/27/17 04:30 Dose: 125 mls/hr Piperacillin Sod/Tazobactam (Sod 3.375 gm/ Dextrose) 50 mls @ 100 mls/hr IVPB Q8H KATRINA PRN Reason: Protocol Last Admin: 06/02/17 06:17 Dose: 100 mls/hr Methylergonovine Maleate (Methergine Injection -) 0.2 mg IM Q4H PRN PRN Reason: EXCESSIVE BLEEDING (L&D) Oxycodone HCl (Roxicodone -) 5 mg PO Q4H PRN PRN Reason: PAIN Last Admin: 06/01/17 22:46 Dose: 5 mg Multivit/Folic Acid/Iron ( Vitamins (Sjr) -) 1 tab PO DAILY KATRINA Last Admin: 06/02/17 09:14 Dose: 1 tab Senna/Docusate Sodium (Pericolace -) 2 tablet PO HS PRN PRN Reason: CONSTIPATION Witch Yanet/Glycerin (Tucks Pads -) 1 pad TP PRN PRN PRN Reason: PAIN - Objective Vital Signs: Vital Signs Temperature 98.2 F 06/02/17 14:00 Pulse Rate 94 H 06/02/17 14:00 Respiratory Rate 20 06/02/17 14:00 Blood Pressure 139/90 06/02/17 14:00 O2 Sat by Pulse Oximetry (%) 98 06/02/17 14:00 Constitutional: Yes: No Distress, Calm Cardiovascular: Yes: Regular Rate and Rhythm Respiratory: Yes: Regular, CTA Bilaterally Gastrointestinal: Yes: Normal Bowel Sounds, Soft Musculoskeletal: Yes: WNL Extremities: Yes: WNL Neurological: Yes: Alert, Oriented Psychiatric: Yes: Alert, Oriented Labs: CBC, BMP 06/02/17 12:10 06/02/17 07:00 INR, PTT INR 1.10 (0.82-1.09) 06/02/17 12:10 Assessment/Plan UTI Nephrolithiasis uti Pleural Effusion Compressive Atelectasis fever plan can change patient to omniceff 600 mg daily for 3 more days rest continue current mgmt
--- NOTE | 2017-06-02 16:08 | PN ---
Physical Exam: Pulmonary SUBJECTIVE: Patient seen and examined OBJECTIVE: Vital Signs Period Temp Pulse Resp BP Sys/Woodruff Pulse Ox Last 24 Hr 97.9 F-99.7 F 80-101 20-20 119-139/73-96 91-98 GENERAL: The patient is awake, alert, and fully oriented, in no acute distress. HEAD: Normal with no signs of trauma. EYES: PERRL, extraocular movements intact, sclera anicteric, conjunctiva clear. No ptosis. ENT: Ears normal, nares patent, oropharynx clear without exudates, moist mucous membranes. NECK: Trachea midline, full range of motion, supple. LUNGS: Breath sounds equal, clear to auscultation bilaterally, no wheezes, no crackles, no accessory muscle use. HEART: Regular rate and rhythm, S1, S2 without murmur, rub or gallop. ABDOMEN: Soft, nontender, nondistended, normoactive bowel sounds, no guarding, no rebound, no hepatosplenomegaly, no masses. EXTREMITIES: 2+ pulses, warm, well-perfused, no edema. NEUROLOGICAL: Cranial nerves II through XII grossly intact. Normal speech, gait not observed. PSYCH: Normal mood, normal affect. SKIN: Warm, dry, normal turgor, no rashes or lesions noted Laboratory Results - last 24 hr 06/02/17 06/02/17 06/02/17 07:00 07:00 12:10 WBC 7.8 7.2 RBC 3.36 L 3.63 Hgb 9.7 L 10.2 L Hct 29.0 L 31.8 L MCV 86.6 87.5 MCH 28.8 28.2 MCHC 33.3 32.2 RDW 14.1 14.0 Plt Count 331 364 MPV 8.1 8.2 Total Counted 100 Neutrophils % Cold Food Packer 55.5 Neutrophils % (Manual) 58.0 Band Neutrophils % No Result Required. Lymphocytes % Cold Food Packer 31.1 D Lymphocytes % (Manual) 30.0 Monocytes % Cold Food Packer 10.4 H Monocytes % (Manual) 9 Eosinophils % Cold Food Packer 2.5 Eosinophils % (Manual) 3.0 Basophils % Cold Food Packer 0.5 Platelet Estimate Adequate PT with INR INR Sodium 144 Potassium 3.6 Chloride 112 H Carbon Dioxide 25 Anion Gap 7 L BUN 6 L Creatinine 0.5 L Creat Clearance w eGFR > 60 Random Glucose 105 D Calcium 7.7 L Total Bilirubin 0.3 D Direct Bilirubin AST 31 D ALT 60 D Alkaline Phosphatase 145 H Total Protein 5.2 L Albumin 1.8 L 06/02/17 06/02/17 12:10 12:10 WBC RBC Hgb Hct MCV MCH MCHC RDW Plt Count MPV Total Counted Neutrophils % Neutrophils % (Manual) Band Neutrophils % Lymphocytes % Lymphocytes % (Manual) Monocytes % Monocytes % (Manual) Eosinophils % Eosinophils % (Manual) Basophils % Platelet Estimate PT with INR 12.40 H INR 1.10 Sodium Potassium Chloride Carbon Dioxide Anion Gap BUN Creatinine Creat Clearance w eGFR Random Glucose Calcium Total Bilirubin 0.3 Direct Bilirubin < 0.2 AST 37 ALT 65 Alkaline Phosphatase 157 H Total Protein 5.9 L Albumin 2.1 L Active Medications Generic Name Dose Route Start Last Admin Trade Name Freq PRN Reason Stop Dose Admin Albuterol Sulfate 1 amp 05/31/17 09:41 Ventolin 0.083% Nebulizer Soln - NEB Q6H PRN SHORT OF BREATH/WHEEZING Benzocaine 1 spray 05/27/17 08:38 Americaine 20% [place] - TP PRN PRN PAIN Benzocaine 1 applic 05/27/17 08:38 Americaine Ointment - TP PRN PRN PAIN Bisacodyl 10 mg 05/27/17 08:38 Dulcolax Suppository - RC PRN PRN CONSTIPATION Ferrous Sulfate 325 mg 05/27/17 10:00 06/02/17 09:14 Feosol - PO 325 mg BID KATRINA Administration Oxytocin/Lactated Ringer's 15 unit in 250 mls @ 1 mls/hr 05/27/17 04:00 05/27 08:15 Lactated Ringer+ 15 Units Pitocin IVPB 0 unit/hr ASDIR KATRINA 0 mls/hr Protocol Titration 0.06 UNIT/HR Parenteral Electrolytes 1,000 mls @ 125 mls/hr 05/27/17 04:30 05/27/17 04:30 Plasma-Lyte 148 - IV 125 mls/hr ASDIR KATRINA Administration Methylergonovine Maleate 0.2 mg 05/27/17 08:38 Methergine Injection - IM Q4H PRN EXCESSIVE BLEEDING (L&D) Oxycodone HCl 5 mg 05/31/17 13:04 06/01/17 22:46 Roxicodone - PO 5 mg Q4H PRN Administration PAIN Multivit/Folic Acid/Iron 1 tab 05/27/17 10:00 06/02/17 09:14 Vitamins (Sjr) - PO 1 tab DAILY KATRINA Administration Senna/Docusate Sodium 2 tablet 05/28/17 22:00 Pericolace - PO HS PRN CONSTIPATION Witch Yanet/Glycerin 1 pad 05/27/17 08:38 Tucks Pads - TP PRN PRN PAIN ASSESSMENT/PLAN:
--- NOTE | 2017-06-02 20:59 | DS ---
Physical Exam-CLIENT SUPPORT CONSULTANT Vital Signs: Vital Signs Temperature 98.2 F 06/02/17 14:00 Pulse Rate 94 H 06/02/17 14:00 Respiratory Rate 20 06/02/17 14:00 Blood Pressure 139/90 06/02/17 14:00 O2 Sat by Pulse Oximetry (%) 98 06/02/17 14:00 Constitutional: Yes: Well Nourished, No Distress, Calm Eyes: Yes: WNL, Conjunctiva Clear, EOM Intact HENT: Yes: WNL, Atraumatic, Normocephalic Neck: Yes: WNL, Supple, Trachea Midline Cardiovascular: Yes: WNL, Regular Rate and Rhythm Respiratory: Yes: WNL, Regular, CTA Bilaterally Gastrointestinal: Yes: WNL ...Rectal Exam: Yes: WNL Renal/: Yes: WNL External Genitalia: Yes: Normal ....Post : Yes: Uterus firm, Uterus non-tender, Slight lochia rubra Breast(s): Yes: WNL Musculoskeletal: Yes: WNL Extremities: Yes: WNL Edema: No Integumentary: Yes: WNL Neurological: Yes: WNL, Alert, Oriented ...Motor Strength: WNL Psychiatric: Yes: WNL, Alert, Oriented Labs: CBC, BMP 06/02/17 12:10 06/02/17 07:00 Delivery - Delivery Vaginal Delivery: Spontaneous (no complication) Type of Anesthesia: Epidural Episiotomy/Laceration: None EBL (cc): 300 Delivery, Single - Stages of Labor Date 1st Stage Initiatied: 05/27/17 Time 1st Stage Initiated: 00:00 Date 2nd Stage Initiated: 05/27/17 Time 2nd Stage Initiated: 07:45 Date of Delivery: 05/27/17 Time of Delivery: 08:12 Time Placenta Delivered: 08:15 Placenta: Yes: Spontaneous - Condition of Infant Keg Header/Web Content Executive Present: No Gender: Female Weight: 7 lb 11 oz Position: Left, OA Total Hours ROM (Hrs/Mins): 5hrs/5mins - 1 Minute Total Score: 9 5 Minutes Total Score: 9 - Feeding Plan Initial Plan: Elected not to breastfeed exclusively throughout hospitalization Discharge Summary Reason For Visit: LABOR INDUCTION Procedures: Principal: Hospital Course: pyelonephritis, Condition: Stable - Instructions Diet, Activity, Other Instructions: regular diet, no intercourse Follow up with Dr. Hernandez at [facility], call for appointment. Referrals: Osvaldo Carrillo MD [Staff Physician] - 2 Weeks Disposition: HOME - Home Medications Comprehensive Discharge Medication List: Ambulatory Orders Vits #93/Iron Fum/FA [ Formula Tablet] 1 each PO DAILY Ferrous Sulfate [Feosol] 1 tablet PO DAILY 04/04/17 Cefdinir [Omnicef -] 600 mg PO DAILY #8 capsule 06/02/17
== END 2017-06-02 18:00 | disposition home or self-care (01) | DRG 560 ==
LOC: JLDR 14:14 → J3W 05-27 09:57
PROVIDERS: ADMIT Obstetrics & Gynecology; ATTEND Obstetrics & Gynecology
PROC: 3E0P7VZ Introduction of Hormone into Female Reproductive, Via Natural or Artificial Opening (ICD-10-PCS; 2017-05-26)
PROC: 10E0XZZ Delivery of Products of Conception, External Approach (ICD-10-PCS; principal; 2017-05-27)
DX: O23.03 Infections of kidney in pregnancy, third trimester (principal); O99.02 Anemia complicating childbirth; O99.52 Diseases of the respiratory system complicating childbirth; Z3A.41 41 weeks gestation of pregnancy; Z37.0 Single live birth; O26.893 Other specified pregnancy related conditions, third trimester; J98.11 Atelectasis; J90 Pleural effusion, not elsewhere classified; N20.0 Calculus of kidney; E87.70 Fluid overload, unspecified; R74.0 Nonspecific elevation of levels of transaminase and lactic acid dehydrogenase [LDH]; B96.20 Unspecified Escherichia coli [E. coli] as the cause of diseases classified elsewhere; O86.4 Pyrexia of unknown origin following delivery; R18.8 Other ascites
CPT/HCPCS: 36415; 36600; 59409; 71020-TC; 74176-TC; 76705-TC; 76775-TC; 80048; 80053; 80076; 82803; 84132; 85025; 85610; 85730; 86593; 86704; 86706; 86708; 86850; 86900; 86901; 87040; 87086; 87186; 87340; 87804; 93970-TC

== ENCOUNTER 2018-11-03 14:17 | Inpatient (IN) | payer OTHER ==
--- NOTE | 2018-11-03 14:34 | PDOC ---
Rapid Medical Evaluation Time Seen by Provider: 11/03/18 14:32 Medical Evaluation: Allergies Allergy/AdvReac Type Severity Reaction Status Date / Time No Known Allergies Allergy Verified 10/22/17 17:48 11/03/18 14:32 I performed a brief in-person evaluation of this patient. Chief complaint: Left flank pain, hx kidney stones (lithotripsy x 1) Pertinent physical exam findings: In some distress secondary to pain, left CVA and LLQ tenderness I have ordered the following: CBC, CMP, UA/culture, urine preg, IV access Patient will proceed to the ED for further evaluation. Discharge Disposition - Diagnosis Flank pain - Referrals - Patient Instructions - Post Discharge Activity
[2018-11-03] MEDS ORDERED: KETOROLAC TROMETHAMINE 30 MG/1 ML VIAL IVPUSH ONE (14:35)
[2018-11-03] MEDS ORDERED: KETOROLAC TROMETHAMINE 30 MG/1 ML VIAL ONE (15:04)
[2018-11-03 15:25] LABS: BASO % 0.3 % (0-2.0); EOS % 0.6 % (0-4.5); HEMATOCRIT 41.4 % (32.4-45.2); HEMOGLOBIN 13.9 GM/dL (10.7-15.3); MCH 30.3 pg (25.7-33.7); MCHC 33.5 g/dl (32.0-36.0); MEAN CELL VOLUME 90.5 fl (80-96); MEAN PLT VOLUME 8.7 fl (7.5-11.1); MONO % 7.7 % (3.8-10.2); NEUT % 64.4 % (42.8-82.8); PLATELET COUNT 271 K/MM3 (134-434); RBC 4.58 M/mm3 (3.60-5.2); WHITE BLOOD COUNT 6.5 K/mm3 (4.0-10.0)
[2018-11-03 15:26] LABS: EPI CELLS 2.4 /HPF (0-5/HPF); HCG,QUALITATIVE URINE Negative; URINE APPEARANCE CLOUDY; URINE BACTERIA 119.1 /hpf (NEGATIVE); URINE BILIRUBIN NEGATIVE (NEGATIVE); URINE CASTS 11 /lpf (0-8); URINE COLOR YELLOW; URINE GLUCOSE (UA) NEGATIVE (NEGATIVE); URINE KETONE NEGATIVE (NEGATIVE); URINE LEUK ESTERASE 2+ (NEGATIVE); URINE NITRITE NEGATIVE (NEGATIVE); URINE PROTEIN TRACE (NEGATIVE); URINE RBC 832 /hpf (0-4); URINE WBC 68 /hpf (0-5)
[2018-11-03 15:36] LABS: ALBUMIN 4.2 g/dl (3.4-5.0); ALK PHOS 106 U/L (45-117); ANION GAP 5 MMOL/L (8-16); BILIRUBIN,TOTAL 0.5 mg/dL (0.2-1); BLOOD UREA NITROGEN 13 mg/dL (7-18); CALCIUM 9.3 mg/dL (8.5-10.1); CHLORIDE 107 mmol/L (98-107); CO2 28 mmol/L (21-32); CREATININE 0.7 mg/dL (0.55-1.3); GLUCOSE,RANDOM 99 mg/dL (74-106); POTASSIUM 3.8 mmol/L (3.5-5.1); SGOT/AST 13 U/L (15-37); SGPT/ALT 24 U/L (13-61); SODIUM 139 mmol/L (136-145); TOT PROT 8.2 g/dl (6.4-8.2)
[2018-11-03] MEDS ORDERED: SODIUM CHLORIDE 0.9% 500 ML INFUS.BAG IV ONE (16:08)
--- NOTE | 2018-11-03 16:08 | PDOC ---
*Physical Exam - Vital Signs Last Vital Signs Temp Pulse Resp BP Pulse Ox 98.3 F 100 H 20 121/59 L 100 11/03/18 14:33 11/03/18 14:33 11/03/18 14:33 11/03/18 14:33 11/03/18 14:33 ED Treatment Course - LABORATORY CBC & Chemistry Diagram: 11/03/18 14:45 11/03/18 14:45 - ADDITIONAL ORDERS Additional order review: Laboratory Results 11/03/18 11/03/18 14:45 14:45 Sodium 139 Potassium 3.8 Chloride 107 Carbon Dioxide 28 Anion Gap 5 L BUN 13 Creatinine 0.7 Creat Clearance w eGFR 100.38 Random Glucose 99 Calcium 9.3 Total Bilirubin 0.5 AST 13 L ALT 24 Alkaline Phosphatase 106 Total Protein 8.2 Albumin 4.2 Urine Color Yellow Urine Appearance Cloudy Urine pH 6.0 Ur Specific [place] 1.018 Urine Protein Trace Urine Glucose (UA) Negative Urine Ketones Negative Urine Blood 3+ H Urine Nitrite Negative Urine Bilirubin Negative Urine Urobilinogen 1.0 Ur Leukocyte Esterase 2+ H Urine WBC (Auto) 68 Urine RBC (Auto) 832 Urine Casts (Auto) 11 U Epithel Cells (Auto) 2.4 Urine Bacteria (Auto) 119.1 Urine HCG, Qual Negative 11/03/18 14:45 RBC 4.58 MCV 90.5 MCHC 33.5 RDW 13.0 MPV 8.7 Neutrophils % 64.4 D Lymphocytes % 27.0 D Monocytes % 7.7 D Eosinophils % 0.6 D Basophils % 0.3 - Medications Given in the ED: ED Medications Discontinued Medications Generic Name Dose Route Start Last Admin Trade Name Bhavikq PRN Reason Stop Dose Admin Ketorolac Tromethamine 30 mg 11/03/18 14:35 11/03/18 15:12 Toradol Injection - IVPUSH 11/03/18 14:36 30 mg ONCE ONE Administration Medical Decision Making - Medical Decision Making 11/03/18 16:07 27 F presenting with L flank pain associated with urinary urgency and incomplete emptying without associated fever/cihlls, nausea/vomiting w/o vag bleeding. Mild supapubic ttp and L cva ttp Pain improved on toradol UA +LE suggestive of infection ct to r/o kidney stone/infected stone The patient was seen and evaluated in conjunction with SOFIA Bernabe under my direct supervision, ancillary studies were reviewed. I independently interviewed and evaluated the patient and I agree with the plan as outlined by SOFIA Bernabe *DC/Admit/Observation/Transfer Diagnosis at time of Disposition: Flank pain - Referrals Referrals: Madeleine Olivas MD [Primary Care Provider] - - Patient Instructions - Post Discharge Activity
--- NOTE | 2018-11-03 18:20 | PDOC ---
History of Present Illness - General Chief Complaint: Pain, Acute Stated Complaint: STOMACH PAIN Time Seen by Provider: 11/03/18 14:32 History Source: Patient Exam Limitations: No Limitations - History of Present Illness Initial Comments: 11/03/18 18:17 27 yo F w/ a h/o kidney stones, (has had lithotripsy in the past), UTIs, comes in c/o sudden onset of L flank pain radiating to the LLQ today. (+)urgency, poor stream and feeling of incomplete bladder emptying, no burning/pain on urination, no hematuria, no vaginal symptoms. Pt is unsure if it feels like her kidney stones pain. Pt says that the pain i much better and relieved since she received pain meds from triage. No fever/chills, no NVD, no constipation, no change in appetite, no change in BMs, no known sick contacts, no recent travel. 11/03/18 18:26 PMD no one specific, goes to [address] [place] [address] Past History - Past Medical History Allergies/Adverse Reactions: Allergies Allergy/AdvReac Type Severity Reaction Status Date / Time No Known Allergies Allergy Verified 10/22/17 17:48 Home Medications: Ambulatory Orders NK [No Known Home Medication] 11/03/18 Anemia: No Asthma: No Cancer: No Cardiac Disorders: No COPD: No Diabetes: No Disorders: Yes (CHRONIC UTI) HTN: No Hypercholesterolemia: No Kidney Stones: Yes (X4) Seizures: No Thyroid Disease: No - Reproductive History (#): 2 Para: 1 - Immunization History Immunization Up to Date: Yes - Suicide/Smoking/Psychosocial Hx Smoking Status: No Smoking History: Never smoked Have you smoked in the past 12 months: No Number of Cigarettes Smoked Daily: 0 Information on smoking cessation initiated: No Hx Alcohol Use: No Drug/Substance Use Hx: No Substance Use Type: None Hx Substance Use Treatment: No Review of Systems - Review of Systems Able to Perform ROS?: Yes Constitutional: No: Chills, Fever, Malaise, Night Sweats HEENTM: No: Eye Pain, Recent change in vision, Throat Pain Respiratory: No: Cough, Shortness of Breath Cardiac (ROS): No: Chest Pain, Palpitations, Chest Tightness ABD/GI: No: Diarrhea, Nausea, Vomiting, Abdominal cramping : Yes: Flank Pain, Urgency. No: Dysuria, Hematuria Musculoskeletal: Yes: Back Pain Integumentary: No: Rash Neurological: No: Headache, Numbness, Dizziness Psychiatric: No: Change in Appetite Endocrine: No: Unexplained Weight Loss *Physical Exam - Vital Signs Last Vital Signs Temp Pulse Resp BP Pulse Ox 98.3 F 100 H 20 121/59 L 100 11/03/18 14:33 11/03/18 14:33 11/03/18 14:33 11/03/18 14:33 11/03/18 14:33 - Physical Exam General Appearance: Yes: Nourished. No: Apparent Distress HEENT: positive: GLORIA, Normal ENT Inspection, Normal Voice. negative: Pale Conjunctivae, Scleral Icterus (R), Scleral Icterus (L) Neck: positive: Supple. negative: Decreased range of motion, Tender midline Respiratory/Chest: positive: Lungs Clear, Normal Breath Sounds. negative: Respiratory Distress, Accessory Muscle Use Cardiovascular: positive: Regular Rhythm, Regular Rate Gastrointestinal/Abdominal: positive: Normal Bowel Sounds, Tender (LLQ and L flank tenderness), Soft. negative: Guarding, Rebound Musculoskeletal: positive: Normal Inspection, CVA Tenderness (L). negative: CVA Tenderness, CVA Tenderness (R), Decreased Range of Motion Extremity: positive: Normal Capillary Refill, Normal Inspection, Normal Range of Motion. negative: Tender, Pedal Edema Integumentary: positive: Normal Color, Dry. negative: Jaundice, Rash Neurologic: positive: Fully Oriented, Alert, Normal Mood/Affect ED Treatment Course - LABORATORY CBC & Chemistry Diagram: 11/03/18 14:45 11/03/18 14:45 - ADDITIONAL ORDERS Additional order review: Laboratory Results 11/03/18 11/03/18 14:45 14:45 Sodium 139 Potassium 3.8 Chloride 107 Carbon Dioxide 28 Anion Gap 5 L BUN 13 Creatinine 0.7 Creat Clearance w eGFR 100.38 Random Glucose 99 Calcium 9.3 Total Bilirubin 0.5 AST 13 L ALT 24 Alkaline Phosphatase 106 Total Protein 8.2 Albumin 4.2 Urine Color Yellow Urine Appearance Cloudy Urine pH 6.0 Ur Specific [place] 1.018 Urine Protein Trace Urine Glucose (UA) Negative Urine Ketones Negative Urine Blood 3+ H Urine Nitrite Negative Urine Bilirubin Negative Urine Urobilinogen 1.0 Ur Leukocyte Esterase 2+ H Urine WBC (Auto) 68 Urine RBC (Auto) 832 Urine Casts (Auto) 11 U Epithel Cells (Auto) 2.4 Urine Bacteria (Auto) 119.1 Urine HCG, Qual Negative 11/03/18 14:45 RBC 4.58 MCV 90.5 MCHC 33.5 RDW 13.0 MPV 8.7 Neutrophils % 64.4 D Lymphocytes % 27.0 D Monocytes % 7.7 D Eosinophils % 0.6 D Basophils % 0.3 - RADIOLOGY Radiology Studies Ordered: Category Date Time Status ABDOMEN & PELVIS CT W/O CONTR [CT] Stat CT Scan 11/03/18 16:09 Completed - Medications Given in the ED: ED Medications Discontinued Medications Generic Name Dose Route Start Last Admin Trade Name Freq PRN Reason Stop Dose Admin Ketorolac Tromethamine 30 mg 11/03/18 14:35 11/03/18 15:12 Toradol Injection - IVPUSH 11/03/18 14:36 30 mg ONCE ONE Administration Sodium Chloride 1,000 ml 11/03/18 16:08 11/03/18 16:37 Normal Saline - IV 11/03/18 16:09 1,000 ml ONCE ONE Administration Medical Decision Making - Medical Decision Making 11/03/18 18:32 27 yo F w/ L flank pain, L CVA tenderness, (+)2 leuks in urine R/O infected stone. WIll give IV fluids and do CT abdomen/pelvis. Pt already received toradol. 11/03/18 18:37 (+)UVJ stone without signs of hydronephrosis. WIll treat as infected stone, w/ pyelonephritis. WIll admit for IV antibiotics. Dr. Jones from Urology paged. IV ceftriaxone ordered. Service paged. I spoke to covering resident who accepted the admission 11/03/18 18:52 I just spoke to Dr. Jones who is aware of admission 11/03/18 18:57 Change of shift, care of patient signed over to DANNI Alvarez who will monitor patient, reassess. 27 yo F w/ infected stone, admitted for IV antibiotics. I already spoke to Urology and admitting team 11/03/18 19:08 *DC/Admit/Observation/Transfer Diagnosis at time of Disposition: Flank pain, Pyelonephritis, Kidney stone on left side - Referrals - Patient Instructions - Post Discharge Activity
[2018-11-03] MEDS ORDERED: CEFTRIAXONE 1,000 MG in DEXTROSE 5%-WATER - 50 ML IVPB ONE (18:52)
--- NOTE | 2018-11-03 19:15 | HP ---
CHIEF COMPLAINT: Left flank pain PCP: HISTORY OF PRESENT ILLNESS: Patient is a 27 year old female with history of urinary tract infections (E. 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 Pain began this morning as cramping pain that progressed to sharp pain radiating to left lower abdominal quadrant. Pain is associated with increased urinary urgency and sensation of incomplete bladder emptying with urination. Patient denies dysuria, hematuria, although does endorse darker colored urine. Patient denies recent antibiotic use. She denies subjective fevers, chills, shortness of breath, chest pain, palpitations, nausea, vomiting. 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 Patient uses Depo shot for contraception. does not recall date of last menstrual period. 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 ER course was notable for: (1) IV Ceftriaxone (2) CT abdomen pelvis (3) Recent Travel: denies PAST MEDICAL HISTORY: nephrolithaisis, urinary tract infections PAST SURGICAL HISTORY: denies Social History: Smoking: denies Alcohol: denies Drugs:denies Lives at home with mother. 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 Family History: Patient endorses aunt with history of nephrolithiasis. Allergies: Patient denies drug, or food allergies. No Known Allergies Allergy (Verified 10/22/17 17:48) HOME MEDICATIONS: Home Medications Medication Instructions Recorded NK [No Known Home Medication] 11/03/18 REVIEW OF SYSTEMS CONSTITUTIONAL: Absent: fever, chills, diaphoresis, generalized weakness, malaise, loss of appetite, weight change HEENT: Absent: rhinorrhea, nasal congestion, throat pain, throat swelling, difficulty swallowing, mouth swelling, ear pain, eye pain, visual changes CARDIOVASCULAR: Absent: chest pain, syncope, palpitations, irregular heart rate, lightheadedness , peripheral edema RESPIRATORY: Absent: cough, shortness of breath, dyspnea with exertion, orthopnea, wheezing, stridor, hemoptysis GASTROINTESTINAL: Absent: abdominal pain, abdominal distension, nausea, vomiting, diarrhea, constipation, melena, hematochezia GENITOURINARY: Admits: flank pain, urinary urgency. Absent: dysuria, frequency, hesitancy, hematuria MUSCULOSKELETAL: Admits: back pain. Absent: myalgia, arthralgia, joint swelling neck pain SKIN: Absent: rash, itching, pallor HEMATOLOGIC/IMMUNOLOGIC: Absent: easy bleeding, easy bruising, lymphadenopathy, frequent infections ENDOCRINE: Absent: unexplained weight gain, unexplained weight loss, heat intolerance, cold intolerance NEUROLOGIC: Absent: headache, focal weakness or paresthesias, dizziness, unsteady gait, seizure, mental status changes, bladder or bowel incontinence PSYCHIATRIC: Absent: anxiety, depression, suicidal or homicidal ideation, hallucinations. PHYSICAL EXAMINATION Vital Signs - 24 hr 11/03/18 14:33 Temperature 98.3 F Pulse Rate 100 H Respiratory 20 Rate Blood Pressure 121/59 L O2 Sat by Pulse 100 Oximetry (%) GENERAL: The patient is awake, alert, and fully oriented, in no acute distress. HEAD: Normocephalic, atraumatic. EYES: PERRL, extraocular movements intact, sclera anicteric, conjunctiva clear. ENT: Oropharynx clear, without erythema or exudates. Moist mucous membranes. NECK: Trachea midline, full range of motion. Supple without lymphadenopathy. LUNGS: Breath sounds equal, clear to auscultation bilaterally, no wheezes, no crackles. No accessory muscle use. HEART: Regular rate and rhythm, S1, S2 without murmur, rub or gallop. ABDOMEN: Soft, nondistended. Tender to deep palpation of left lower quadrant. No rebound tenderness, no guarding. Normoactive bowel sounds x4 quadrants. No hepatosplenomegaly, no masses. Positive suprapubic tenderness. No CVA tenderness. EXTREMITIES: 2+ radial, dorsalis pedis pulses bilaterally. Warm, well-perfused. No lower extremity edema bilaterally. NEUROLOGICAL: Cranial nerves II through XII grossly intact. Normal speech. No gross focal deficits. PSYCH: Normal mood, normal affect upon my encounter. SKIN: Warm, dry. Laboratory Results - last 24 hr 11/03/18 11/03/18 11/03/18 14:45 14:45 14:45 WBC 6.5 RBC 4.58 Hgb 13.9 Hct 41.4 MCV 90.5 MCH 30.3 MCHC 33.5 RDW 13.0 Plt Count 271 MPV 8.7 Absolute Neuts (auto) 4.2 Neutrophils % 64.4 D Lymphocytes % 27.0 D Monocytes % 7.7 D Eosinophils % 0.6 D Basophils % 0.3 Nucleated RBC % 0 Sodium 139 Potassium 3.8 Chloride 107 Carbon Dioxide 28 Anion Gap 5 L BUN 13 Creatinine 0.7 Creat Clearance w eGFR 100.38 Random Glucose 99 Calcium 9.3 Total Bilirubin 0.5 AST 13 L ALT 24 Alkaline Phosphatase 106 Total Protein 8.2 Albumin 4.2 Urine Color Yellow Urine Appearance Cloudy Urine pH 6.0 Ur Specific [place] 1.018 Urine Protein Trace Urine Glucose (UA) Negative Urine Ketones Negative Urine Blood 3+ H Urine Nitrite Negative Urine Bilirubin Negative Urine Urobilinogen 1.0 Ur Leukocyte Esterase 2+ H Urine WBC (Auto) 68 Urine RBC (Auto) 832 Urine Casts (Auto) 11 U Epithel Cells (Auto) 2.4 Urine Bacteria (Auto) 119.1 Urine HCG, Qual Negative ASSESSMENT/PLAN: Patient is a 27 year old female with history of urinary tract infections (E. coli, staph saprophyticus) and nephrolithiasis presents with complaint of left flank pain ongoing for past day. Renal colic, secondary to nephrolithaisis. Possible underlying urinary tract infection. -Urinalysis shows cloudy yellow urine, 3+ blood, 2+ leukocyte esterase, 68WBC, 838 WBC, 119 bacteria. -CT scan abdomen, pelvis shows left sided 2mm stone at ureterovesical junction. No hydronephrosis noted. Bilateral nonobstructing calculi. -Ceftriaxone 1 gram IV given in ED. Given distant history of resistant staph Saprophyticus infection, will hold off on Ertapenem pending urine culture results. -Continue Ceftriaxone 1gram IV daily -Urology consult (Dr. Cande Ireland) -Follow urine culture -Pain control with Tylenol 650mg PO Q6H PRN FEN - No IV fluids indicated. Encourage judicious oral hydration - Follow CMP - Regular diet Prophylaxis -SCDs bilateral lower extremities. Early ambulation. Disposition -Admit to medical -surgical floor. Visit type - Emergency Visit Emergency Visit: Yes ED Registration Date: 11/03/18 Care time: The patient presented to the Emergency Department on the above date and was hospitalized for further evaluation of their emergent condition. - New Patient This patient is new to me today: Yes Date on this admission: 11/04/18 - Critical Care Critical Care patient: No
[2018-11-03] MEDS ORDERED: CEFTRIAXONE 1 GM/50 ML BAG ONE (19:20)
--- NOTE | 2018-11-03 20:00 | PN ---
Teaching Attending Note Name of Resident: Carlos Lyons ATTENDING PHYSICIAN STATEMENT I saw and evaluated the patient. I reviewed the resident's note and discussed the case with the resident. I agree with the resident's findings and plan as documented. SUBJECTIVE: Seen and examined; please refer to resident note for further historical information. Briefly, patient presents with 1 day of ongoing flank pain; she has a history of UTIs, nephrolithiasis. Pain is L-flank; worse with motion better with rest. No recent abx, no other physician visits. She endorses urinary urgency and sensation of incomplete emptying. CT shows 2mm stone at UVJ without hydronephrosis and b/l nonobstructing renal calculi. Given ceftriaxone in ER. Dr. Jones called by ER. Last stone 1 year ago; she had a cystoscopy with retrieval remotely and has had other stones that passed spontaneously 10 sys ROS done and negative aside from HPI PMH, PSH, FH, SH reviewed Home Medications Medication Instructions Recorded NK [No Known Home Medication] 11/03/18 OBJECTIVE: VS, labs, imaging reviewed NAD, AAO, Resting in bed NC AT EOMI PERRLA RRR s1/2 no mgr Lungs CTAB, w/ sym exp NT ND +BS; L-flank pain moreso than abd CN2-12 wnl, no fnd Normal mood, appropriate behavior CT shows 2mm L-UVJ stone w/o hydro [facility] reviewed; 2014 and 2016 cx's reviewed ASSESSMENT AND PLAN: Patient presents with flank pain found to have 2mm L-UVJ stone 1) Acute Cystitis -Clinically stable with no white count or fever; hemodynamics stable. -Will cover with ceftriaxone empirically; she did have S. sapro in 2014 that was resistent to ceft, but that was 4 years ago. Should we need to broaden coverage ertapenem would be acceptable. -Followup cx and sn; followup blood cx 2) L-UVJ Stone -ER consulted Dr. Jones; continue with pain and nausea control PRN
[2018-11-03 20:29] VITALS: BMI 15.5
[2018-11-04] MEDS ORDERED: ACETAMINOPHEN 325 MG TABLET (FP) PO PRN (01:46)
[2018-11-04 07:02] LABS: HEMATOCRIT 37.3 % (32.4-45.2); HEMOGLOBIN 12.7 GM/dL (10.7-15.3); MCH 30.4 pg (25.7-33.7); MCHC 34.1 g/dl (32.0-36.0); MEAN CELL VOLUME 89.3 fl (80-96); MEAN PLT VOLUME 8.5 fl (7.5-11.1); PLATELET COUNT 254 K/MM3 (134-434); RBC 4.17 M/mm3 (3.60-5.2); RDW 13.1 % (11.6-15.6); WHITE BLOOD COUNT 7.1 K/mm3 (4.0-10.0)
[2018-11-04 07:33] LABS: ALBUMIN 3.3 g/dl (3.4-5.0); ALK PHOS 94 U/L (45-117); ANION GAP 7 MMOL/L (8-16); BILIRUBIN,TOTAL 0.4 mg/dL (0.2-1); BLOOD UREA NITROGEN 14 mg/dL (7-18); CALCIUM 8.5 mg/dL (8.5-10.1); CHLORIDE 116 mmol/L (98-107); CO2 24 mmol/L (21-32); CREATININE 0.6 mg/dL (0.55-1.3); GLUCOSE,RANDOM 98 mg/dL (74-106); POTASSIUM 4.1 mmol/L (3.5-5.1); SGOT/AST 12 U/L (15-37); SGPT/ALT 16 U/L (13-61); SODIUM 147 mmol/L (136-145); TOT PROT 6.4 g/dl (6.4-8.2)
[2018-11-04] MEDS ORDERED: cefTRIAXone SODIUM 1 GM VIAL ONE (09:01)
[2018-11-04] MEDS ORDERED: DEXTROSE 5%-WATER - 50 ML IVPB ONE (09:01)
[2018-11-04] MEDS ORDERED: KETOROLAC TROMETHAMINE 30 MG/1 ML VIAL IVPB PRN (09:22)
--- NOTE | 2018-11-04 09:22 | PN ---
Progress Note (short form) - Note Progress Note: c/o Current Medications Generic Name Dose Route Start Last Admin Trade Name Freq PRN Reason Stop Dose Admin Acetaminophen 650 mg 11/04/18 01:46 Tylenol - PO Q6H PRN PAIN LEVEL 1-5 Ceftriaxone Sodium 1 gm/ 50 mls @ 100 mls/hr 11/04/18 10:00 11/04/18 09:08 Dextrose IVPB 100 mls/hr DAILY KATRINA Administration Protocol Last Vital Signs Temp Pulse Resp BP Pulse Ox 98.4 F 79 18 105/64 99 11/04/18 06:13 11/04/18 06:13 11/04/18 06:13 11/04/18 06:13 11/03/18 21:00 General CV Lungs Abdomen Extremities
[2018-11-04] MEDS ORDERED: LACTATED RINGERS SOLUTION 1,000 ML/1,000 ML INFUS.BAG IV SCH (09:30)
[2018-11-04] MEDS ORDERED: CEFTRIAXONE 1 GM in DEXTROSE 5%-WATER - 50 ML IVPB SCH (10:00)
[2018-11-04 10:48] VITALS: BP 106/56; PULSE 76; TEMP 98.3
--- NOTE | 2018-11-04 12:28 | DS ---
Physical Exam: SUBJECTIVE: Patient seen and examined. asymptomatic. denies CP, sob,fever, chills, N/V/C/D, dysuria or hematuria. states she had kidney stone as a teenager which was treated with lithotripsy. has family hx of kidney stones (father and aunt) OBJECTIVE: Vital Signs Period Temp Pulse Resp BP Sys/[place] Pulse Ox Last 24 Hr 98.2 F-98.8 F 70-100 16-20 99-126/56-78 98-100 PHYSICAL EXAM GENERAL: The patient is awake, alert, and fully oriented, in no acute distress. HEAD: Normal with no signs of trauma. EYES: PERRL, extraocular movements intact, sclera anicteric, conjunctiva clear. ENT: Ears normal, nares patent, oropharynx clear without exudates, moist mucous membranes. NECK: Trachea midline, full range of motion, supple. LUNGS: Breath sounds equal, clear to auscultation bilaterally, no wheezes, no crackles, no accessory muscle use. HEART: Regular rate and rhythm, S1, S2 without murmur, rub or gallop. ABDOMEN: Soft, nontender, nondistended, normoactive bowel sounds, no guarding, no rebound, no hepatosplenomegaly, no masses. no cva tenderness EXTREMITIES: 2+ pulses, warm, well-perfused, no edema. NEUROLOGICAL: Cranial nerves II through XII grossly intact. Normal speech, gait not observed. PSYCH: Normal mood, normal affect. SKIN: Warm, dry, normal turgor, no rashes or lesions noted. LABS Laboratory Results - last 24 hr 11/03/18 11/03/18 11/03/18 14:45 14:45 14:45 WBC 6.5 RBC 4.58 Hgb 13.9 Hct 41.4 MCV 90.5 MCH 30.3 MCHC 33.5 RDW 13.0 Plt Count 271 MPV 8.7 Absolute Neuts (auto) 4.2 Neutrophils % 64.4 D Lymphocytes % 27.0 D Monocytes % 7.7 D Eosinophils % 0.6 D Basophils % 0.3 Nucleated RBC % 0 Sodium 139 Potassium 3.8 Chloride 107 Carbon Dioxide 28 Anion Gap 5 L BUN 13 Creatinine 0.7 Creat Clearance w eGFR 100.38 Random Glucose 99 Calcium 9.3 Total Bilirubin 0.5 AST 13 L ALT 24 Alkaline Phosphatase 106 Total Protein 8.2 Albumin 4.2 Urine Color Yellow Urine Appearance Cloudy Urine pH 6.0 Ur Specific [place] 1.018 Urine Protein Trace Urine Glucose (UA) Negative Urine Ketones Negative Urine Blood 3+ H Urine Nitrite Negative Urine Bilirubin Negative Urine Urobilinogen 1.0 Ur Leukocyte Esterase 2+ H Urine WBC (Auto) 68 Urine RBC (Auto) 832 Urine Casts (Auto) 11 U Epithel Cells (Auto) 2.4 Urine Bacteria (Auto) 119.1 Urine HCG, Qual Negative 11/04/18 11/04/18 06:00 06:00 WBC 7.1 RBC 4.17 Hgb 12.7 Hct 37.3 MCV 89.3 MCH 30.4 MCHC 34.1 RDW 13.1 Plt Count 254 MPV 8.5 Absolute Neuts (auto) Neutrophils % Lymphocytes % Monocytes % Eosinophils % Basophils % Nucleated RBC % Sodium 147 H Potassium 4.1 Chloride 116 H Carbon Dioxide 24 Anion Gap 7 L BUN 14 Creatinine 0.6 Creat Clearance w eGFR 119.92 Random Glucose 98 Calcium 8.5 Total Bilirubin 0.4 AST 12 L ALT 16 Alkaline Phosphatase 94 Total Protein 6.4 Albumin 3.3 L Urine Color Urine Appearance Urine pH Ur Specific [place] Urine Protein Urine Glucose (UA) Urine Ketones Urine Blood Urine Nitrite Urine Bilirubin Urine Urobilinogen Ur Leukocyte Esterase Urine WBC (Auto) Urine RBC (Auto) Urine Casts (Auto) U Epithel Cells (Auto) Urine Bacteria (Auto) Urine HCG, Qual HOSPITAL COURSE: Date of Admission:11/03/18 Date of Discharge: 11/04/18 admitting diagnosis: L partially obstructed nephrolithasis, UTI Pre hospital course 27 year old female with history of urinary tract infections (E. 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 Pain began this morning as cramping pain that progressed to sharp pain radiating to left lower abdominal quadrant. Pain is associated with increased urinary urgency and sensation of incomplete bladder emptying with urination. Patient denies dysuria , hematuria, although does endorse darker colored urine. Patient denies recent antibiotic use. She denies subjective fevers, chills, shortness of breath, chest pain, palpitations, nausea, vomiting. Subsequent hospital course admitted to medicine. started on IVF, ceftriaxone, flomax and pain control. symptoms resolved. spoke with urology that since patient is no longer having symptoms can follow up on office on Tuesday for further management. d/c on cefuroximine and flomax Minutes to complete discharge: 40 Discharge Summary Reason For Visit: PYELONEPHRITIS/CLACULUS OF LEFT KIDNEY Current Active Problems Flank pain (Acute) Kidney stone on left side (Acute) Pyelonephritis (Acute) Condition: Improved - Instructions Diet, Activity, Other Instructions: You were admitted to the hospital due to Left kidney stone and UTI. You were started on antibiotics, take these until completed unless otherwise instructed by urology You were started on a medication to help pass the kidney stone. Take this until instructed to stop by urology Drink lots of water, this will help the kidney stone You can take motrin or ibuprofen as needed for pain Follow up with the urologist on TUESDAY. PLease arrive in the morning. his address has been provided. If you develop fevers (temp >101) or pain please return to the ER Referrals: Andrés Jones MD [Staff Physician] - Disposition: HOME - Home Medications Comprehensive Discharge Medication List: Ambulatory Orders Cefuroxime Axetil [Cefuroxime] 500 mg PO BID #14 tablet 11/04/18 Tamsulosin HCl [Flomax -] 0.4 mg PO DAILY@0830 #30 [email or web address] 11/04/18 This patient is new to me today: Yes Date on this admission: 11/04/18 Emergency Visit: Yes ED Registration Date: 11/03/18 Care time: The patient presented to the Emergency Department on the above date and was hospitalized for further evaluation of their emergent condition. Critical Care patient: No - Discharge Referral Referred to [facility] Med [facility].: No
--- NOTE | 2018-11-04 14:12 | EKG ---
Test Reason : Blood Pressure : / mmHG Vent. Rate : 063 BPM Atrial Rate : 063 BPM P-R Int : 128 ms QRS Dur : 084 ms QT Int : 426 ms P-R-T Axes : 023 044 040 degrees QTc Int : 435 ms NORMAL SINUS RHYTHM NORMAL ECG Confirmed by MD ADAM, VERITO ([id number]) on 11/04/2018 2:11:49 PM Referred By: Confirmed By:VERITO MEDINA MD
[2018-11-05] MEDS ORDERED: TAMSULOSIN HCL 0.4 MG CAP PO SCH (08:30)
== END 2018-11-04 14:09 | disposition home or self-care (01) | DRG 465 ==
LOC: JER 14:17 → JERBED 18:43 → J7W 20:08
PROVIDERS: ADMIT Internal Medicine; ATTEND Internal Medicine
DX: N20.0 Calculus of kidney (principal); N39.0 Urinary tract infection, site not specified; R39.15 Urgency of urination; B96.20 Unspecified Escherichia coli [E. coli] as the cause of diseases classified elsewhere
CPT/HCPCS: 36415; 71046-TC-FY; 74176-TC; 80053; 81003; 82360; 84703; 85025; 85027; 87086; 87186; 93005; 93010; 99284-25

== ENCOUNTER 2018-11-20 10:12 | Day surgery (SDC) | payer OTHER ==
[2018-11-17 09:35] VITALS: BMI 22.6
[2018-11-20 10:44] VITALS: TEMP 98.5
[2018-11-20] MEDS ORDERED: MIDAZOLAM HCL 2 MG/2 ML SINGLE DOSE VIAL ONE (12:50)
--- NOTE | 2018-11-20 13:47 | OP ---
Operative Note - Note: Operative Date: 11/20/18 Pre-Operative Diagnosis: Left renal stone Operation: ESWL Findings: 6 mm mid pole Left renal stone Post-Operative Diagnosis: Same as Pre-op Surgeon: Andrés Jones Anesthesia: Fractional Estimated Blood Loss (mls): 0 Operative Report Dictated: Yes
[2018-11-20 15:27] VITALS: BP 106/61; PULSE 64
--- NOTE | 2018-11-21 10:36 | OP ---
DATE OF OPERATION: 11/20/2018 PREOPERATIVE DIAGNOSIS: Left renal stone. POSTOPERATIVE DIAGNOSIS: Left renal stone. PROCEDURE: Left extracorporeal shock wave lithotripsy. ATTENDING: Missael Edmonds MD ANESTHESIA: Fractional. OPERATION WENT FOLLOWS: The patient was brought in the operating room, placed in supine position on the operating room table. Ultrasonography and fluoroscopy were performed. A 6-mm left mid-pole stone was identified. Anesthesia and preoperative antibiotics were then administered. Shock wave lithotripsy was then started, 2500 impulses at 17 joules of power were administered to the stone with excellent fragmentation of the stone under real time ultrasonography and fluoroscopy. The patient tolerated the procedure very well. There were no complications noted. The disposition of the patient was to the recovery room. MISSAEL EDMONDS M.D. [id number]
== END 2018-11-20 16:05 | disposition home or self-care (01) ==
LOC: JASU-SURG 10:12
PROVIDERS: ATTEND Urology
PROC: 0TF4XZZ Fragmentation in Left Kidney Pelvis, External Approach (ICD-10-PCS; principal; 2018-11-20 11:45)
DX: N20.0 Calculus of kidney (principal)
CPT/HCPCS: 84703

== ENCOUNTER 2018-12-04 12:17 | Day surgery (SDC) | payer OTHER ==
[2018-12-01 11:50] VITALS: BMI 22.6
[2018-12-04] MEDS ORDERED: MIDAZOLAM HCL 2 MG/2 ML SINGLE DOSE VIAL ONE ×2 (14:20)
[2018-12-04] MEDS ORDERED: fentaNYL CITRATE 250 MCG/5 ML VIAL ONE (14:20)
--- NOTE | 2018-12-04 14:34 | OP ---
Operative Note - Note: Operative Date: 12/04/18 Pre-Operative Diagnosis: Right renal stones Operation: Right ESWL Findings: x 3 3 mm Right lower pole kidney stones Post-Operative Diagnosis: Same as Pre-op Surgeon: Andrés Jones Anesthesia: Fractional Estimated Blood Loss (mls): 0 Operative Report Dictated: Yes
[2018-12-04] MEDS ORDERED: ONDANSETRON 4 MG/2 ML VIAL ONE (16:52)
[2018-12-04 17:11] VITALS: TEMP 97.2
[2018-12-04 17:50] VITALS: BP 112/70; PULSE 82
--- NOTE | 2018-12-05 15:05 | OP ---
DATE OF OPERATION: 12/04/2018 PREOPERATIVE DIAGNOSIS: Right renal stones. POSTOPERATIVE DIAGNOSIS: Right renal stones. PROCEDURE: Right extracorporeal shock wave lithotripsy. ATTENDING: Missael Edmonds M.D. ANESTHESIA: Fractional. PROCEDURE: The patient was brought in the operating room and placed in supine position on the operating room table. Ultrasonography and fluoroscopy were performed. Two stones each measuring 3 mm were noted in the right lower pole calyceal system. Anesthesia and preoperative antibiotics were then given. Shock wave lithotripsy was subsequently started; 2500 impulses 17 joules of power were administered to the stone with adequate fragmentation noted under real-time ultrasonography and fluoroscopy. No complications were noted. DISPOSITION: The patient was to the recovery room. MISSAEL EDMONDS M.D. [id number]
== END 2018-12-04 17:51 | disposition home or self-care (01) ==
LOC: JASU-SURG 12:17
PROVIDERS: ATTEND Urology
PROC: 0TF3XZZ Fragmentation in Right Kidney Pelvis, External Approach (ICD-10-PCS; principal; 2018-12-04 14:00)
DX: N20.0 Calculus of kidney (principal)
CPT/HCPCS: 84703

== ENCOUNTER 2019-03-29 16:08 | Inpatient (IN) | payer OTHER | END 2019-04-01 13:36 | disposition home or self-care (01) | LOC: JER 16:08 → JERBED 19:56 → J6S 03-30 15:24 ==

== ENCOUNTER 2019-05-01 10:23 | Inpatient (IN) | payer OTHER ==
[2019-05-01 10:44] VITALS: BMI 23.3
--- NOTE | 2019-05-01 11:29 | PDOC ---
History of Present Illness - General Chief Complaint: Hematuria Stated Complaint: KIDNEY STONES - History of Present Illness Initial Comments: 05/01/19 11:28 Ms. Owen is a 28 yo female w/ pmh of nephrolithiasis, recently admitted 03/29- 04/01 w/ stent placement for infected R UVJ calculus who presents for evaluation of R flank and R lower quadrant pain worsening for several days with associated burning on urination, urgency, and zoie blood in urine. Patient called urologist's office and was told to present to ER. The patient denies chest pain, shortness of breath, headache and dizziness. Denies fever, chills, nausea, vomit, diarrhea and constipation. Urology: Dr. Horner Past History - Past Medical History Allergies/Adverse Reactions: Allergies Allergy/AdvReac Type Severity Reaction Status Date / Time No Known Allergies Allergy Verified 05/01/19 10:41 Home Medications: Ambulatory Orders NK [No Known Home Medication] 05/01/19 Anemia: No Asthma: No Cancer: No Cardiac Disorders: No CVA: No COPD: No CHF: No Dementia: No Diabetes: No GI Disorders: No Disorders: Yes (NEPHROLITHIASIS, UTI, PYELO) HTN: No Hypercholesterolemia: No Kidney Stones: Yes Liver Disease: No Seizures: No Thyroid Disease: No - Surgical History Abdominal Surgery: No Appendectomy: No Cardiac Surgery: No Cholecystectomy: No Lung Surgery: No Neurologic Surgery: No Orthopedic Surgery: No - Reproductive History (#): 2 Para: 1 - Immunization History Immunization Up to Date: Yes - Psycho Social/Smoking Cessation Hx Smoking Status: No Smoking History: Never smoked Have you smoked in the past 12 months: No Number of Cigarettes Smoked Daily: 0 Hx Alcohol Use: No Drug/Substance Use Hx: No Substance Use Type: None Hx Substance Use Treatment: No Review of Systems - Review of Systems Comments:: 05/01/19 11:28 GENERAL/CONSTITUTIONAL: No fever or chills. No weakness. HEAD, EYES, EARS, NOSE AND THROAT: No change in vision. No ear pain or discharge. No sore throat. CARDIOVASCULAR: No chest pain or shortness of breath RESPIRATORY: No cough, wheezing, or hemoptysis. GASTROINTESTINAL: No nausea, vomiting, diarrhea or constipation. GENITOURINARY: +Urinary symptoms as described. MUSCULOSKELETAL: No joint or muscle swelling or pain. No neck or back pain. SKIN: No rash NEUROLOGIC: No headache, vertigo, loss of consciousness, or change in strength/ sensation. ENDOCRINE: No increased thirst. No abnormal weight change HEMATOLOGIC/LYMPHATIC: No anemia, easy bleeding, or history of blood clots. ALLERGIC/IMMUNOLOGIC: No hives or skin allergy. *Physical Exam - Vital Signs Last Vital Signs Temp Pulse Resp BP Pulse Ox 98.7 F 105 H 18 109/70 98 05/01/19 10:41 05/01/19 10:41 05/01/19 10:41 05/01/19 10:41 05/01/19 10:41 - Physical Exam Comments: 05/01/19 11:29 GENERAL: Awake, alert, and fully oriented, in no acute distress HEAD: No signs of trauma, normocephalic, atraumatic EYES: PERRLA, EOMI, sclera anicteric, conjunctiva clear ENT: Auricles normal inspection, hearing grossly normal, nares patent, oropharynx clear without exudates. Moist mucosa NECK: Normal ROM, supple, no lymphadenopathy, JVD, or masses LUNGS: No distress, speaks full sentences, clear to auscultation bilaterally HEART: Regular rate and rhythm, normal S1 and S2, no murmurs, rubs or gallops, peripheral pulses normal and equal bilaterally. ABDOMEN: +R flank and lower abdominal TTP. Soft, normoactive bowel sounds. No guarding, no rebound. No masses EXTREMITIES: Normal inspection, Normal range of motion, no edema. No clubbing or cyanosis. NEUROLOGICAL: Cranial nerves II through XII grossly intact. Normal speech, normal gait, no focal sensorimotor deficits SKIN: Warm, Dry, normal turgor, no rashes or lesions noted. ED Treatment Course - LABORATORY CBC & Chemistry Diagram: 05/01/19 11:40 05/01/19 11:38 Medical Decision Making - Medical Decision Making 05/01/19 11:50 Ms. Owen is a 28 yo female w/ pmh as described who presents for evaluation of R sided back, flank, and abdominal pain w/ hematuria in setting of recent stenting concerning for surgical problem vs. uti vs. other intra-abdominal process. Patient will be evaluated with CBC/CMP/PT/INR/PTT/UA/Urine Cx/CT scan to r/o emergent process or infection. 05/01/19 16:16 CT negative with double-J stent noted to R w/ minimal residual pelvocaliectasis. Discussed patient w/ urologist who recommended ABX, fluids, and admission for further evaluation. Ceftriaxone ordered as well as fluids and patient will be admitted. Discharge - Discharge Information Problems reviewed: Yes Clinical Impression/Diagnosis: Hematuria Qualifiers: Hematuria type: unspecified type Qualified Code(s): R31.9 - Hematuria, unspecified Abdominal pain Qualifiers: Abdominal location: unspecified location Qualified Code(s): R10.9 - Unspecified abdominal pain UTI (urinary tract infection) Qualifiers: Urinary tract infection type: site unspecified Hematuria presence: with hematuria Qualified Code(s): N39.0 - Urinary tract infection, site not specified - Admission Yes - Follow up/Referral Referrals: Madeleine Olivas MD [Primary Care Provider] - - Patient Discharge Instructions - Post Discharge Activity
[2019-05-01] MEDS ORDERED: SODIUM CHLORIDE 1,000 ML IV STA (11:32)
[2019-05-01] MEDS ORDERED: KETOROLAC TROMETHAMINE 15 MG/ML VIAL IVPUSH ONE (11:32)
[2019-05-01] MEDS ORDERED: KETOROLAC TROMETHAMINE 15 MG/ML VIAL ONE (11:40)
[2019-05-01] MEDS ORDERED: morphine CARPU-JECT 2 MG/1 ML DISP.SYRIN IVPUSH ONE (11:46)
[2019-05-01 11:56] LABS: EPI CELLS 0.9 /HPF (0-5/HPF); URINE RBC 7002 /hpf (0-4); URINE WBC 178.9 /hpf (0-5)
[2019-05-01 11:57] LABS: HYALINE CASTS 0 /lpf (0-8); URINE BACTERIA 2.7 /hpf (NEGATIVE); URINE CRYSTALS NONE SEEN /hpf; YEAST NONE SEEN (NEGATIVE)
[2019-05-01 11:59] LABS: URINE APPEARANCE BLOODY; URINE COLOR RED
[2019-05-01] MEDS ORDERED: MORPHINE SULFATE 2 MG/ML VIAL ONE (12:01)
[2019-05-01 12:08] LABS: BASO % 0.7 % (0-2.0); EOS % 0.6 % (0-4.5); HEMOGLOBIN 13.1 GM/dL (10.7-15.3); LYMPH % 24.8 % (8-40); MCH 30.1 pg (25.7-33.7); MCHC 33.6 g/dl (32.0-36.0); MEAN CELL VOLUME 89.5 fl (80-96); MEAN PLT VOLUME 8.6 fl (7.5-11.1); MONO % 5.2 % (3.8-10.2); NEUT % 68.7 % (42.8-82.8); PLATELET COUNT 317 K/MM3 (134-434); RBC 4.36 M/mm3 (3.60-5.2); RDW 13.4 % (11.6-15.6)
[2019-05-01 12:39] LABS: INR 1.14 (0.83-1.09); PROTHROMBIN TIME (PATIENT) 13.5 SEC (9.7-13.0)
[2019-05-01 12:42] LABS: ACTIVATED PTT 31.4 SECONDS (25.2-36.5)
--- NOTE | 2019-05-01 12:48 | PDOC ---
Documentation entered by Alfredo Flower SCRIBE, acting as scribe for Wiley Bolden MD. Wiley Bolden MD: This documentation has been prepared by the Mundo diaz Daniel, SCRIBE, under my direction and personally reviewed by me in its entirety. I confirm that the documentation accurately reflects all work, treatment, procedures, and medical decision making performed by me. Attending Attestation - Resident Resident Name: Raul Lares - ED Attending Attestation I have performed the following: I have examined & evaluated the patient, The case was reviewed & discussed with the resident, I agree w/resident's findings & plan - HPI HPI: 05/01/19 12:03 The patient is a 28 year old with a past medical history of nephrolithiasis and right sided kidney stone s/p stenting 03/30/19 here today for evaluation of right sided abdominal pain and hematuria. The patient reports that for the past few days she has had worsening right sided abdominal pain and flank. She also notes associated hematuria which started a few days after the stent was put in and has been getting worse and burning with urination. She also notes increased urinary frequency for the past 2 weeks. Patient denies headache, lightheadedness. Denies fever, chills. Denies chest pain, shortness of breath. Denies nausea, vomiting, diarrhea. Allergies: NKA PCP: Madeleine Olivas Urologist: Sachin Horner - Physicial Exam PE: 05/01/19 12:35 GENERAL: The patient is awake, alert, and fully oriented, in no acute distress. HEAD: Normal with no signs of trauma. EYES: Pupils equal, round and reactive to light, extraocular movements intact, sclera anicteric, conjunctiva clear with no pallor. ENT: Ears normal, nares patent, oropharynx clear without exudates. Moist mucous membranes. NECK: Normal range of motion, supple without lymphadenopathy, JVD, or masses. LUNGS: Breath sounds equal, clear to auscultation bilaterally. No wheeze/ crackles. HEART: Regular rate and rhythm, normal S1 and S2 without murmur or rub. ABDOMEN: +right abdominal and suprapubic discomfort to palpation. +right CVA tenderness. Soft/nondistended. BS wnl. No guarding or rebound. No palpable masses. No hepatosplenomegaly. EXTREMITIES: Normal range of motion, no edema. No clubbing or cyanosis. No cords, erythema, or tenderness. NEUROLOGICAL: Cranial nerves II through XII grossly intact. Normal speech, normal gait. PSYCH: Normal mood, normal affect. SKIN: Warm, Dry, normal turgor, no rashes or lesions noted. - Medical Decision Making 05/01/19 12:40 28y/o F h/o nephrolithiasis s/p right ureteral stent 04/03 p/w 2 weeks worsening R flank pain, gross hematuria, and urinary urgency. fever >102 two days ago. labs, ua, urine culture CTAP pain control discuss dispo with Dr. Horner
[2019-05-01 12:49] LABS: BILIRUBIN,TOTAL 0.3 mg/dL (0.2-1); CALCIUM 9.4 mg/dL (8.5-10.1); CREATININE 0.7 mg/dL (0.55-1.3); POTASSIUM 3.7 mmol/L (3.5-5.1); TOT PROT 8.2 g/dl (6.4-8.2)
[2019-05-01] MEDS ORDERED: CEFTRIAXONE 1,000 MG in DEXTROSE 5%-WATER - 50 ML IVPB ONE (16:15)
[2019-05-01] MEDS ORDERED: SODIUM CHLORIDE 1,000 ML IV SCH ×3 (16:15→18:34)
[2019-05-01] MEDS ORDERED: CEFTRIAXONE 1 GM/50 ML BAG ONE (16:22)
--- NOTE | 2019-05-01 17:35 | HP ---
<Wanda Calloway - Last Filed: 05/01/19 20:16> CHIEF COMPLAINT: superpubic tenderness PCP: HISTORY OF PRESENT ILLNESS: Patient is a 28 y/o female with a history of R kidney stones who presents today for increased urinary frequency and superpubic pain. Patient was admitted to the hospital in March and found to had a kidney stone. She was scheduled for a procedure and at the time she had a fever so she had a stent placed. Patient was discharged on 7 days of antibiotics. She recently began having increased frequency with dysuria. The pain radiates to the right sided flank. Patient had a fever tuesday and tuesday. Patient denies nausea, vomiting, chest pain, headache, or diarrhea. ER course was notable for: (1) (2) (3) Recent Travel: denies PAST MEDICAL HISTORY: nephrolithiasis PAST SURGICAL HISTORY: stent placement of R ureter Social History: Smoking: denies Alcohol: denies Drugs: denies Family hx: sister and father both with kidney stones Allergies No Known Allergies Allergy (Verified 05/01/19 10:41) HOME MEDICATIONS: Home Medications Medication Instructions Recorded NK [No Known Home Medication] 05/01/19 REVIEW OF SYSTEMS CONSTITUTIONAL: Absent: fever, chills, diaphoresis, generalized weakness, malaise, loss of appetite, weight change HEENT: Absent: rhinorrhea, nasal congestion, throat pain, throat swelling, difficulty swallowing, mouth swelling, ear pain, eye pain, visual changes CARDIOVASCULAR: Absent: chest pain, syncope, palpitations, irregular heart rate, lightheadedness , peripheral edema RESPIRATORY: Absent: cough, shortness of breath, dyspnea with exertion, orthopnea, wheezing, stridor, hemoptysis GASTROINTESTINAL: Absent: abdominal pain, abdominal distension, nausea, vomiting, diarrhea, constipation, melena, hematochezia GENITOURINARY: Absent: dysuria, frequency, urgency, hesitancy, hematuria, flank pain, genital pain MUSCULOSKELETAL: Absent: myalgia, arthralgia, joint swelling, back pain, neck pain SKIN: Absent: rash, itching, pallor HEMATOLOGIC/IMMUNOLOGIC: Absent: easy bleeding, easy bruising, lymphadenopathy, frequent infections ENDOCRINE: Absent: unexplained weight gain, unexplained weight loss, heat intolerance, cold intolerance NEUROLOGIC: Absent: headache, focal weakness or paresthesias, dizziness, unsteady gait, seizure, mental status changes, bladder or bowel incontinence PSYCHIATRIC: Absent: anxiety, depression, suicidal or homicidal ideation, hallucinations. PHYSICAL EXAMINATION Vital Signs - 24 hr 05/01/19 10:41 Temperature 98.7 F Pulse Rate 105 H Respiratory 18 Rate Blood Pressure 109/70 O2 Sat by Pulse 98 Oximetry (%) GENERAL: Awake, alert, and fully oriented, in no acute distress. HEAD: Normal with no signs of trauma. EYES: Pupils equal, round and reactive to light, extraocular movements intact, EARS, NOSE, THROAT: E. Moist mucous membranes. LUNGS: Breath sounds equal, clear to auscultation bilaterally. No wheezes, and no crackles. No accessory muscle use. HEART: Regular rate and rhythm, normal S1 and S2 without murmur, rub or gallop. ABDOMEN: tenderness to suprapubic palpation MUSCULOSKELETAL: Normal range of motion at all joints. No bony deformities or tenderness. No CVA tenderness. LOWER EXTREMITIES: 2+ pulses, warm, well-perfused. No calf tenderness. No peripheral edema. SKIN: Warm, dry, normal turgor, no rashes or lesions noted, normal capillary refill. CBC, BMP 05/01/19 11:40 05/01/19 11:38 ASSESSMENT/PLAN: Patient is a 28 y/o female with a history of R kidney stones who is admitted for UTI. #UTI with sepsis - complicated with stent - continue patient on Meropenem - Bobde consulted - continue NS @ 125 - leukocytosis and tachycardia - morphine 2 q4h for pain - tylenol for fever - f/u urine cultures #DVT ppx - SCD's, hematuria FEN -regular diet Dispo: monitor on med surg ATTENDING PHYSICIAN STATEMENT I saw and evaluated the patient. I reviewed the resident's note and discussed the case with the resident. I agree with the resident's findings and plan as documented. SUBJECTIVE: OBJECTIVE: ASSESSMENT AND PLAN: <Bright Martinez - Last Filed: 05/02/19 12:13> Seen and examined, independently verified all historical and physical exam information contained in the resident note and I agree with it unless annotated below. I independently reviewed all imaging, diagnostics, and vital signs. The patient was seen and examined in the emergency room. Subjectively, they are having pain on the right flank that is similar to the prior issue with kidney stones. Past medical history, past surgical history, as per resident documentation. Social history is negative for any alcohol or tobacco or drug abuse. Furthermore, the patient denies any family history of sudden cardiac or malignant hyperthermia in response to anesthesia VS, labs, imaging reviewed NAD, AAO, resting in bed RRR s1/2 no mgr Lungs CTAB, w/ sym exp R-flank pain, ND, +BS CN2-12 wnl, no fnd Neck supple, trachea midline, no masses Normal mood, appropriate behavior No rashes or breakdown noted. Reviewed CT scan independently, stent appreciated with possible stone. A/P: Patient presents with suspected urinary infection with possible stone in the area of the former stent placement. The patient is hemodynamically stable and afebrile. Given the fact that they may have infective organisms within the stone, as well as the underlying prior instrumentation, we will go ahead and we will provide her with meropenem for coverage and consult infectious disease. We will also go ahead and we will place the patient on IV fluids as she is n.p.o. overnight and we will check a lactate. We will follow-up with urology as well as infectious disease, and we will ensure hemodynamic stability. She will likely require a procedure. Full code SCDs for DVT prophylaxis alongside early ambulation. Visit type - Emergency Visit Emergency Visit: Yes ED Registration Date: 05/01/19 Care time: The patient presented to the Emergency Department on the above date and was hospitalized for further evaluation of their emergent condition. - New Patient This patient is new to me today: Yes Date on this admission: 05/01/19 - Critical Care Critical Care patient: No ATTENDING PHYSICIAN STATEMENT I saw and evaluated the patient. I reviewed the resident's note and discussed the case with the resident. I agree with the resident's findings and plan as documented. SUBJECTIVE: OBJECTIVE: ASSESSMENT AND PLAN:
--- NOTE | 2019-05-01 17:53 | CON.GU ---
Consult Consult Specialty:: Reason for Consultation:: hematuria - History of Present Illness Chief Complaint: abd/flank pain, hematuria History of Present Illness: 28 year old with a past medical history of nephrolithiasis and right sided kidney stone s/p stenting 03/30/19 here today for evaluation of right sided abdominal pain and hematuria. The patient reports that for the past few days she has had worsening right sided abdominal pain and flank. She also notes associated hematuria which started a few days after the stent was put in and has been getting worse and burning with urination. She also notes increased urinary frequency for the past 2 weeks. Patient denies headache, lightheadedness. Denies fever, chills. Denies chest pain, shortness of breath. Denies nausea, vomiting, diarrhea. Allergies: NKA PCP: Madeleine Olivas Urologist: Sachin MODI cons req. - History Source History Provided By: Patient, Medical Record Limitations to Obtaining History: No Limitations - Past Medical History Renal/: Yes: Hematuria, Renal Calculi - Past Surgical History Past Surgical History: Yes: None - Alcohol/Substance Use Hx Alcohol Use: No History of Substance Use: reports: None - Smoking History Smoking history: Never smoked Have you smoked in the past 12 months: No Aproximately how many cigarettes per day: 0 - Social History Usual Living Arrangement: With Parent (mother) ADL: Independent History of Recent Travel: No Home Medications - Allergies Allergies/Adverse Reactions: Allergies Allergy/AdvReac Type Severity Reaction Status Date / Time No Known Allergies Allergy Verified 05/01/19 10:41 - Home Medications Home Medications: Ambulatory Orders NK [No Known Home Medication] 05/01/19 Review of Systems - Review of Systems Gastrointestinal: reports: Abdominal Pain Genitourinary: reports: Flank Pain, Hematuria Physical Exam- Vital Signs: Vital Signs Temperature 98.7 F 05/01/19 10:41 Pulse Rate 105 H 05/01/19 10:41 Respiratory Rate 18 05/01/19 10:41 Blood Pressure 109/70 05/01/19 10:41 O2 Sat by Pulse Oximetry (%) 98 05/01/19 10:41 Gastrointestinal: Yes: Soft, Tenderness Renal/: Yes: CVA Tenderness - Right, Hematuria Labs: CBC, BMP 05/01/19 11:40 05/01/19 11:38 Imaging - Results Cat Scan: Report Reviewed Problem List - Problems (1) Abdominal pain Code(s): R10.9 - UNSPECIFIED ABDOMINAL PAIN Qualifiers: Abdominal location: unspecified location Qualified Code(s): R10.9 - Unspecified abdominal pain (2) Hematuria Assessment/Plan: ur cx, iv abxs Code(s): R31.9 - HEMATURIA, UNSPECIFIED Qualifiers: Hematuria type: unspecified type Qualified Code(s): R31.9 - Hematuria, unspecified (3) Urinary tract infection Code(s): N39.0 - URINARY TRACT INFECTION, SITE NOT SPECIFIED Qualifiers: Urinary tract infection type: site unspecified Hematuria presence: with hematuria Qualified Code(s): N39.0 - Urinary tract infection, site not specified; R31.9 - Hematuria, unspecified (4) Flank pain Code(s): R10.9 - UNSPECIFIED ABDOMINAL PAIN (5) Nephrolithiasis Code(s): N20.0 - CALCULUS OF KIDNEY (6) Ureteral calculus, right Assessment/Plan: RULL JJ change after uti resolved Code(s): N20.1 - CALCULUS OF URETER
[2019-05-01] MEDS ORDERED: ACETAMINOPHEN 325 MG TABLET (FP) PO PRN ×2 (18:03→18:08)
[2019-05-01] MEDS ORDERED: oxyCODONE HCL 5 MG TABLET PO PRN (18:08)
[2019-05-01] MEDS ORDERED: MEROPENEM 1 GM in DEXTROSE 5%-WATER 100 ML IVPB ONE (18:33)
[2019-05-01] MEDS ORDERED: MORPHINE SULFATE 2 MG/ML VIAL IVPUSH PRN (18:35)
[2019-05-02 07:27] LABS: BASO % 0.8 % (0-2.0); EOS % 2.9 % (0-4.5); HEMATOCRIT 28.4 % (32.4-45.2); HEMOGLOBIN 9.8 GM/dL (10.7-15.3); MCH 30.2 pg (25.7-33.7); MCHC 34.4 g/dl (32.0-36.0); MEAN CELL VOLUME 87.8 fl (80-96); MEAN PLT VOLUME 8.3 fl (7.5-11.1); MONO % 7.5 % (3.8-10.2); NEUT % 44.8 % (42.8-82.8); PLATELET COUNT 248 K/MM3 (134-434); RBC 3.24 M/mm3 (3.60-5.2); RDW 13.2 % (11.6-15.6)
[2019-05-02 07:49] LABS: ALBUMIN 2.7 g/dl (3.4-5.0); BILIRUBIN,TOTAL 0.4 mg/dL (0.2-1); CALCIUM 8.3 mg/dL (8.5-10.1); CREATININE 0.4 mg/dL (0.55-1.3); PHOSPHOROUS 3.2 mg/dL (2.5-4.9); POTASSIUM 3.4 mmol/L (3.5-5.1); TOT PROT 5.5 g/dl (6.4-8.2)
[2019-05-02] MEDS ORDERED: MEROPENEM 500 MG in DEXTROSE 5%-WATER 100 ML IVPB ONE (10:00)
[2019-05-02] MEDS ORDERED: CEFTRIAXONE 1 GM in DEXTROSE 5%-WATER - 50 ML IVPB SCH (10:00)
--- NOTE | 2019-05-02 11:02 | EKG ---
Test Reason : Blood Pressure : / mmHG Vent. Rate : 079 BPM Atrial Rate : 079 BPM P-R Int : 132 ms QRS Dur : 082 ms QT Int : 386 ms P-R-T Axes : 000 033 030 degrees QTc Int : 442 ms NORMAL SINUS RHYTHM NORMAL ECG WHEN COMPARED WITH ECG OF 29-MAR-2019 21:03, NO SIGNIFICANT CHANGE WAS FOUND Confirmed by KEYANNA PAEZ MD ([id number]) on 05/02/2019 11:02:42 AM Referred By: Confirmed By:KEYANNA PAEZ MD
--- NOTE | 2019-05-02 11:45 | CON.ID ---
Consult Consult Specialty:: infectious diseases Referred by:: Wanda Reason for Consultation:: pyelonephritis uti - History of Present Illness Chief Complaint: rt sided pain History of Present Illness: 28 y/o female with a history of R kidney stones admitted for increased urinary frequency and superpubic pain. Patient was admitted to the hospital in March and found to had a kidney stone. She was scheduled for a procedure and at the time she had a fever so she had a stent placed. Patient was discharged on 7 days of antibiotics. She recently began having increased frequency with dysuria. The pain radiates to the right sided flank. Patient had a fever tuesday and tuesday. Patient denies nausea, vomiting, chest pain, headache, or diarrhea. currently has hematuria patient received abx ,flank pain is better - History Source History Provided By: Patient Limitations to Obtaining History: No Limitations - Past Medical History Renal/: Yes: Hematuria, Renal Calculi ...: No - Past Surgical History Past Surgical History: Yes: None - Alcohol/Substance Use Hx Alcohol Use: No History of Substance Use: reports: None - Smoking History Smoking history: Never smoked Have you smoked in the past 12 months: No Aproximately how many cigarettes per day: 0 - Social History Usual Living Arrangement: With Parent (mother) ADL: Independent History of Recent Travel: No Home Medications - Allergies Allergies/Adverse Reactions: Allergies Allergy/AdvReac Type Severity Reaction Status Date / Time No Known Allergies Allergy Verified 05/01/19 10:41 - Home Medications Home Medications: Ambulatory Orders NK [No Known Home Medication] 05/01/19 Review of Systems - Review of Systems Constitutional: reports: Fever Eyes: reports: No Symptoms HENT: reports: No Symptoms Neck: reports: No Symptoms Cardiovascular: reports: No Symptoms Respiratory: reports: No Symptoms Gastrointestinal: reports: No Symptoms Genitourinary: reports: Flank Pain, Urgency Musculoskeletal: reports: No Symptoms Integumentary: reports: No Symptoms Neurological: reports: No Symptoms Endocrine: reports: No Symptoms Hematology/Lymphatic: reports: No Symptoms Psychiatric: reports: No Symptoms Physical Exam Vital Signs: Vital Signs Temperature 98.5 F 05/02/19 10:00 Pulse Rate 75 05/02/19 10:00 Respiratory Rate 20 05/02/19 10:00 Blood Pressure 100/57 L 05/02/19 10:00 O2 Sat by Pulse Oximetry (%) 99 05/01/19 21:29 Constitutional: Yes: Well Nourished, Calm, Mild Distress Eyes: Yes: Conjunctiva Clear Neck: Yes: Supple, Trachea Midline Cardiovascular: Yes: Regular Rate and Rhythm Respiratory: Yes: Regular, CTA Bilaterally Gastrointestinal: Yes: Normal Bowel Sounds, Soft Renal/: Yes: CVA Tenderness - Right, Other Musculoskeletal: Yes: WNL Extremities: Yes: WNL Neurological: Yes: Alert, Oriented Psychiatric: Yes: Alert, Oriented Labs: CBC, BMP 05/02/19 06:39 05/02/19 06:39 Imaging - Results Cat Scan: Report Reviewed, Image Reviewed Assessment/Plan UTI Nephrolithiasis Pleural Effusion fever plan will change abx to zosyn await for all cx report hydration rest as per the team
[2019-05-02 12:28] LABS: EPI CELLS 3.7 /HPF (0-5/HPF); HYALINE CASTS 7 /lpf (0-8); URINE APPEARANCE CLEAR; URINE BACTERIA 7.9 /hpf (NEGATIVE); URINE BILIRUBIN NEGATIVE (NEGATIVE); URINE COLOR YELLOW; URINE GLUCOSE (UA) NEGATIVE (NEGATIVE); URINE KETONE NEGATIVE (NEGATIVE); URINE LEUK ESTERASE 2+ (NEGATIVE); URINE NITRITE NEGATIVE (NEGATIVE); URINE PROTEIN 1+ (NEGATIVE); URINE RBC 208 /hpf (0-4); URINE UROBILINOGEN 0.2 mg/dL (0.2-1.0); URINE WBC 32 /hpf (0-5)
--- NOTE | 2019-05-02 14:17 | PN ---
Progres Note Chief Complaint: pt feels better, no flank pain or gross hematuria today - Objective Vital Signs: Vital Signs Temperature 98.1 F 05/02/19 14:14 Pulse Rate 79 05/02/19 14:14 Respiratory Rate 20 05/02/19 14:14 Blood Pressure 110/62 05/02/19 14:14 O2 Sat by Pulse Oximetry (%) 99 05/02/19 09:00 Constitutional: Yes: Well Nourished, No Distress, Calm Gastrointestinal: Yes: WNL, Normal Bowel Sounds, Soft Genitourinary: Yes: WNL, CVA Tenderness - Right. No: Hematuria Kidneys: Yes: WNL Labs/Additional Data: CBC, BMP 05/02/19 06:39 05/02/19 06:39 INR, PTT INR Cancelled 05/01/19 12:00 Problem List - Problems (1) Abdominal pain Code(s): R10.9 - UNSPECIFIED ABDOMINAL PAIN Qualifiers: Abdominal location: unspecified location Qualified Code(s): R10.9 - Unspecified abdominal pain (2) Hematuria Code(s): R31.9 - HEMATURIA, UNSPECIFIED Qualifiers: Hematuria type: unspecified type Qualified Code(s): R31.9 - Hematuria, unspecified (3) Urinary tract infection Assessment/Plan: ur cx + grp D strep, to cont iv zosyn Code(s): N39.0 - URINARY TRACT INFECTION, SITE NOT SPECIFIED Qualifiers: Urinary tract infection type: site unspecified Hematuria presence: with hematuria Qualified Code(s): N39.0 - Urinary tract infection, site not specified; R31.9 - Hematuria, unspecified (4) Flank pain Code(s): R10.9 - UNSPECIFIED ABDOMINAL PAIN (5) Nephrolithiasis Code(s): N20.0 - CALCULUS OF KIDNEY (6) Ureteral calculus, right Code(s): N20.1 - CALCULUS OF URETER
--- NOTE | 2019-05-02 15:04 | PN ---
<Osvaldo Fontenot - Last Filed: 05/02/19 15:02> Physical Exam: SUBJECTIVE: Pt denies hematuria today. Not on menstrual cycle. Denies OBJECTIVE: Vital Signs Period Temp Pulse Resp BP Sys/Woodruff Pulse Ox Last 24 Hr 97.6 F-98.5 F 67-89 18-20 98-115/57-71 97-99 GENERAL: The patient is awake, alert, and fully oriented, in no acute distress. HEAD: Normal with no signs of trauma. EYES: PERRL, extraocular movements intact, sclera anicteric, conjunctiva clear. No ptosis. ENT: Ears normal, nares patent, oropharynx clear without exudates, moist mucous membranes. NECK: Trachea midline, full range of motion, supple. LUNGS: Breath sounds equal, clear to auscultation bilaterally, no wheezes, no crackles, no accessory muscle use. HEART: Regular rate and rhythm, S1, S2 without murmur, rub or gallop. ABDOMEN: Soft, nontender, nondistended, normoactive bowel sounds, no guarding, no rebound, no hepatosplenomegaly, no masses. EXTREMITIES: 2+ pulses, warm, well-perfused, no edema. NEUROLOGICAL: Cranial nerves II through XII grossly intact. Normal speech, gait not observed. PSYCH: Normal mood, normal affect. SKIN: Warm, dry, normal turgor, no rashes or lesions noted Laboratory Results - last 24 hr 05/01/19 05/01/19 05/02/19 11:12 21:00 06:39 WBC 4.0 RBC 3.24 L Hgb 9.8 L Hct 28.4 L D MCV 87.8 MCH 30.2 MCHC 34.4 RDW 13.2 Plt Count 248 D MPV 8.3 Absolute Neuts (auto) 1.8 Neutrophils % 44.8 D Lymphocytes % 44.0 H D Monocytes % 7.5 Eosinophils % 2.9 D Basophils % 0.8 Nucleated RBC % 0 Sodium Potassium Chloride Carbon Dioxide Anion Gap BUN Creatinine Est GFR (CKD-EPI)AfAm Est GFR (CKD-EPI)NonAf Random Glucose Lactic Acid 1.6 Calcium Phosphorus Magnesium Total Bilirubin AST ALT Alkaline Phosphatase Total Protein Albumin Urine Color Urine Appearance Urine pH Ur Specific [place] Urine Protein Urine Glucose (UA) Urine Ketones Urine Blood Urine Nitrite Urine Bilirubin Urine Urobilinogen Ur Leukocyte Esterase Urine WBC (Auto) Urine RBC (Auto) Urine Casts (Auto) U Epithel Cells (Auto) Urine Bacteria (Auto) 05/02/19 05/02/19 06:39 10:55 WBC RBC Hgb Hct MCV MCH MCHC RDW Plt Count MPV Absolute Neuts (auto) Neutrophils % Lymphocytes % Monocytes % Eosinophils % Basophils % Nucleated RBC % Sodium 144 Potassium 3.4 L Chloride 113 H Carbon Dioxide 25 Anion Gap 6 L BUN 8.0 Creatinine 0.4 L Est GFR (CKD-EPI)AfAm 164.28 Est GFR (CKD-EPI)NonAf 141.74 Random Glucose 87 Lactic Acid Calcium 8.3 L Phosphorus 3.2 Magnesium 2.0 Total Bilirubin 0.4 AST 16 ALT 29 Alkaline Phosphatase 66 Total Protein 5.5 L Albumin 2.7 L Urine Color Yellow Urine Appearance Clear Urine pH 7.0 D Ur Specific [place] 1.013 Urine Protein 1+ H Urine Glucose (UA) Negative Urine Ketones Negative Urine Blood 3+ H Urine Nitrite Negative Urine Bilirubin Negative Urine Urobilinogen 0.2 Ur Leukocyte Esterase 2+ H Urine WBC (Auto) 32 Urine RBC (Auto) 208 Urine Casts (Auto) 7 U Epithel Cells (Auto) 3.7 Urine Bacteria (Auto) 7.9 Active Medications Generic Name Dose Route Start Last Admin Trade Name Freq PRN Reason Stop Dose Admin Acetaminophen 1,000 mg 05/02/19 08:41 Tylenol - PO Q6H PRN PAIN LEVEL 6-10 Piperacillin Sod/Tazobactam 50 mls @ 100 mls/hr 05/02/19 18:00 Sod 3.375 gm/ Dextrose IVPB Q8H-IV KATRINA Protocol ASSESSMENT/PLAN: ATTENDING PHYSICIAN STATEMENT I saw and evaluated the patient. I reviewed the resident's note and discussed the case with the resident. I agree with the resident's findings and plan as documented. SUBJECTIVE: OBJECTIVE: ASSESSMENT AND PLAN: <Bright Martinez - Last Filed: 05/05/19 12:23> Physical Exam: RESIDENT NOTE IS INCOMPLETE; PLEASE COUNT THIS ADDENDUM THE NOTE FOR THE DAY. I INDEPENDENTLY VERIFIED ALL LABS AND MICROBIOLOGY. NO NEW COMPLAINTS, PAIN CONTROLLED, RESTING IN BED. NO NAUSEA OR SOB. MAKING URINE WITHOUT PAIN. 10 SYS ROS DONE AND NEGATIVE ASIDE FROM HPI VS, labs, imaging reviewed NAD, AAO, resting in bed RRR s1/2 no mgr Lungs CTAB, w/ sym exp R-flank pain, ND, +BS CN2-12 wnl, no fnd Neck supple, trachea midline, no masses Normal mood, appropriate behavior No rashes or breakdown noted. Reviewed CT scan independently, stent appreciated with possible stone. A/P: Patient presents with suspected urinary infection with possible stone in the area of the former stent placement. The patient is hemodynamically stable and afebrile. -COMPLICATED UTI; FOLLOWUP MICRO -HISTORY OF RENAL CALCULI S/P STENTING *REMOVE STENTS OP LIKELY Full code SCDs for DVT prophylaxis alongside early ambulation. Visit type - Emergency Visit Emergency Visit: Yes ED Registration Date: 05/01/19 Care time: The patient presented to the Emergency Department on the above date and was hospitalized for further evaluation of their emergent condition. - New Patient This patient is new to me today: No - Critical Care Critical Care patient: No ATTENDING PHYSICIAN STATEMENT I saw and evaluated the patient. I reviewed the resident's note and discussed the case with the resident. I agree with the resident's findings and plan as documented. SUBJECTIVE: OBJECTIVE: ASSESSMENT AND PLAN:
[2019-05-02] MEDS ORDERED: FLU VACCINE QUAD 60 MCG/0.5 ML (MDV 19-20) IM ONE (15:29)
[2019-05-02] MEDS ORDERED: PIPERACILLIN/TAZOBACTAM 3.375 GM VIAL IVPB ONE (17:07)
[2019-05-02] MEDS ORDERED: DEXTROSE 5%-WATER - 50 ML IVPB ONE (17:08)
[2019-05-02] MEDS: PIPERACILLIN/TAZOB 3.375 GM 3.375 GM in DEXTROSE 5%-WATER - 50 ML IVPB SCH (17:23)
[2019-05-02] MEDS: ACETAMINOPHEN 500 MG TABLET (FP) PO PRN (17:33)
[2019-05-03] MEDS ORDERED: PIPERACILLIN/TAZOBACTAM 3.375 GM VIAL IVPB ONE ×3 (01:07→17:17)
[2019-05-03] MEDS ORDERED: DEXTROSE 5%-WATER - 50 ML IVPB ONE ×3 (01:08→17:17)
[2019-05-03] MEDS: PIPERACILLIN/TAZOB 3.375 GM 3.375 GM in DEXTROSE 5%-WATER - 50 ML IVPB SCH ×3 (02:00→17:49)
--- NOTE | 2019-05-03 09:16 | PN ---
Physical Exam: SUBJECTIVE: NO NEW COMPLAINTS, PAIN CONTROLLED, RESTING IN BED. NO NAUSEA OR SOB. MAKING URINE WITHOUT PAIN. 10 SYS ROS DONE AND NEGATIVE ASIDE FROM HPI OBJECTIVE: Vital Signs Period Temp Pulse Resp BP Sys/Woodruff Pulse Ox Last 24 Hr 98 F-98.7 F 66-80 20-20 100-111/56-73 100 GENERAL: The patient is awake, alert, and fully oriented, in no acute distress. HEAD: Normal with no signs of trauma. EYES: PERRL, extraocular movements intact, sclera anicteric, conjunctiva clear. No ptosis. ENT: Ears normal, nares patent, oropharynx clear without exudates, moist mucous membranes. NECK: Trachea midline, full range of motion, supple. LUNGS: Breath sounds equal, clear to auscultation bilaterally, no wheezes, no crackles, no accessory muscle use. HEART: Regular rate and rhythm, S1, S2 without murmur, rub or gallop. ABDOMEN: Soft, nontender, nondistended, normoactive bowel sounds, no guarding, no rebound, no hepatosplenomegaly, no masses. EXTREMITIES: 2+ pulses, warm, well-perfused, no edema. NEUROLOGICAL: Cranial nerves II through XII grossly intact. Normal speech, gait not observed. PSYCH: Normal mood, normal affect. SKIN: Warm, dry, normal turgor, no rashes or lesions noted Laboratory Results - last 24 hr 05/01/19 05/02/19 11:12 10:55 Urine Color Yellow Urine Appearance Clear Urine pH 7.0 D Ur Specific [place] 1.013 Urine Protein 1+ H Urine Glucose (UA) Negative Urine Ketones Negative Urine Blood 3+ H Urine Nitrite Negative Urine Bilirubin Negative Urine Urobilinogen 0.2 Ur Leukocyte Esterase 2+ H Urine WBC (Auto) 32 Urine RBC (Auto) 208 Urine Casts (Auto) 7 U Epithel Cells (Auto) 3.7 Urine Bacteria (Auto) 7.9 Active Medications Generic Name Dose Route Start Last Admin Trade Name Freq PRN Reason Stop Dose Admin Acetaminophen 1,000 mg 05/02/19 08:41 05/02/19 17:33 Tylenol - PO 1,000 mg Q6H PRN Administration PAIN LEVEL 6-10 Piperacillin Sod/Tazobactam 50 mls @ 100 mls/hr 05/02/19 18:00 05/03/19 02:00 Sod 3.375 gm/ Dextrose IVPB 100 mls/hr Q8H-IV KATRINA Administration Protocol Microbiology 05/01/19 13:00 Urine - Urine Clean Catch Urine Culture - Final Enterococcus Faecalis A/P: Patient presents with suspected urinary infection with possible stone in the area of the former stent placement. The patient is hemodynamically stable and afebrile. -COMPLICATED UTI; FOLLOWUP MICRO. TRANSITION TO PO PER DR ANTUNEZ THEN DC -HISTORY OF RENAL CALCULI S/P STENTING *REMOVE STENTS OP LIKELY DC PLANNING 24-48 HOURS PENDING ID Full code SCDs for DVT prophylaxis alongside early ambulation. Visit type - Emergency Visit Emergency Visit: Yes ED Registration Date: 05/01/19 Care time: The patient presented to the Emergency Department on the above date and was hospitalized for further evaluation of their emergent condition. - New Patient This patient is new to me today: No - Critical Care Critical Care patient: No
[2019-05-03 10:29] LABS: BASO % 0.8 % (0-2.0); EOS % 3.8 % (0-4.5); HEMATOCRIT 32.6 % (32.4-45.2); HEMOGLOBIN 11.3 GM/dL (10.7-15.3); LYMPH % 31.6 % (8-40); MCH 30.4 pg (25.7-33.7); MCHC 34.7 g/dl (32.0-36.0); MEAN CELL VOLUME 87.7 fl (80-96); MONO % 6.1 % (3.8-10.2); NEUT % 57.7 % (42.8-82.8); PLATELET COUNT 294 K/MM3 (134-434); RBC 3.72 M/mm3 (3.60-5.2); RDW 13.3 % (11.6-15.6); WHITE BLOOD COUNT 5.1 K/mm3 (4.0-10.0)
[2019-05-03 11:06] LABS: BLOOD UREA NITROGEN 9.3 mg/dL (7-18); CALCIUM 9.1 mg/dL (8.5-10.1); CREATININE 0.6 mg/dL (0.55-1.3); POTASSIUM 3.8 mmol/L (3.5-5.1)
[2019-05-03 12:18] LABS: ERYTHROCYTE SEDIMENTATION RATE 36 mm/hr (0-20)
--- NOTE | 2019-05-03 12:46 | PN ---
Progress Note, Physician History of Present Illness: stable afebrile cx report noted - Current Medication List Current Medications: Active Medications Acetaminophen (Tylenol -) 1,000 mg PO Q6H PRN PRN Reason: PAIN LEVEL 6-10 Last Admin: 05/02/19 17:33 Dose: 1,000 mg Piperacillin Sod/Tazobactam (Sod 3.375 gm/ Dextrose) 50 mls @ 100 mls/hr IVPB Q8H-IV KATRINA; Protocol Last Admin: 05/03/19 10:13 Dose: 100 mls/hr - Objective Vital Signs: Vital Signs Temperature 97.9 F 05/03/19 10:00 Pulse Rate 73 05/03/19 10:00 Respiratory Rate 20 05/03/19 10:00 Blood Pressure 123/72 05/03/19 10:00 O2 Sat by Pulse Oximetry (%) 100 05/02/19 21:00 Constitutional: Yes: No Distress, Calm Cardiovascular: Yes: S1, S2 Respiratory: Yes: Regular, CTA Bilaterally Gastrointestinal: Yes: Normal Bowel Sounds, Soft Musculoskeletal: Yes: WNL Extremities: Yes: WNL Neurological: Yes: Alert, Oriented Psychiatric: Yes: Alert, Oriented Labs: CBC, BMP 05/03/19 09:55 05/03/19 09:55 INR, PTT INR Cancelled 05/01/19 12:00 Assessment/Plan UTI Nephrolithiasis Pleural Effusion fever plan continue abx await for sensitivites
[2019-05-03] MEDS: ACETAMINOPHEN 500 MG TABLET (FP) PO PRN (22:49)
[2019-05-04] MEDS ORDERED: PIPERACILLIN/TAZOBACTAM 3.375 GM VIAL IVPB ONE ×2 (01:46→09:48)
[2019-05-04] MEDS ORDERED: DEXTROSE 5%-WATER - 50 ML IVPB ONE ×2 (01:46→09:48)
[2019-05-04] MEDS: PIPERACILLIN/TAZOB 3.375 GM 3.375 GM in DEXTROSE 5%-WATER - 50 ML IVPB SCH ×2 (02:19→09:56)
[2019-05-04] MEDS ORDERED: FLU VACCINE QUAD 60 MCG/0.5 ML (MDV 19-20) IM ONE (10:30)
--- NOTE | 2019-05-04 11:03 | PN ---
LY Gray Note Chief Complaint: feels well - Objective Vital Signs: Vital Signs Temperature 98.0 F 05/04/19 06:00 Pulse Rate 63 05/04/19 06:00 Respiratory Rate 18 05/04/19 06:00 Blood Pressure 95/43 L 05/04/19 06:00 O2 Sat by Pulse Oximetry (%) 98 05/03/19 21:00 Constitutional: Yes: Well Nourished, No Distress, Calm Gastrointestinal: Yes: WNL Genitourinary: Yes: WNL Labs/Additional Data: CBC, BMP 05/03/19 09:55 05/03/19 09:55 INR, PTT INR Cancelled 05/01/19 12:00 Problem List - Problems (1) Abdominal pain Code(s): R10.9 - UNSPECIFIED ABDOMINAL PAIN Qualifiers: Abdominal location: unspecified location Qualified Code(s): R10.9 - Unspecified abdominal pain (2) Hematuria Code(s): R31.9 - HEMATURIA, UNSPECIFIED Qualifiers: Hematuria type: unspecified type Qualified Code(s): R31.9 - Hematuria, unspecified (3) Urinary tract infection Assessment/Plan: ur cx noted, OK for disch on augmentin 500 mg bid x 1 week, f/u for RULL Code(s): N39.0 - URINARY TRACT INFECTION, SITE NOT SPECIFIED Qualifiers: Urinary tract infection type: site unspecified Hematuria presence: with hematuria Qualified Code(s): N39.0 - Urinary tract infection, site not specified; R31.9 - Hematuria, unspecified (4) Flank pain Code(s): R10.9 - UNSPECIFIED ABDOMINAL PAIN (5) Nephrolithiasis Code(s): N20.0 - CALCULUS OF KIDNEY (6) Ureteral calculus, right Code(s): N20.1 - CALCULUS OF URETER
--- NOTE | 2019-05-04 12:04 | PN ---
Progress Note, Physician History of Present Illness: stable no new issues - Objective Vital Signs: Vital Signs Temperature 98.0 F 05/04/19 06:00 Pulse Rate 63 05/04/19 06:00 Respiratory Rate 18 05/04/19 06:00 Blood Pressure 95/43 L 05/04/19 06:00 O2 Sat by Pulse Oximetry (%) 98 05/03/19 21:00 Constitutional: Yes: No Distress, Calm Cardiovascular: Yes: S1, S2 Respiratory: Yes: Regular, CTA Bilaterally Gastrointestinal: Yes: Normal Bowel Sounds, Soft Musculoskeletal: Yes: WNL Extremities: Yes: WNL Neurological: Yes: Alert, Oriented Psychiatric: Yes: Alert, Oriented Labs: CBC, BMP 05/03/19 09:55 05/03/19 09:55 INR, PTT INR Cancelled 05/01/19 12:00 Assessment/Plan UTI Nephrolithiasis Pleural Effusion fever plan sensitivities noted patient can be changed to ampicillin for another 2 weeks follow with urology rest as per the team
[2019-05-04 13:15] VITALS: BP 103/59; PULSE 71; TEMP 98.3
--- NOTE | 2019-05-05 12:20 | DS ---
Physical Exam: FOR UNKNOWN REASONS RESIDENT DID NOT START DISCHARGE SUMMARY ON THE DAY OF DISCHARGE. PLEASE COUNT THIS NOTE FOR THE 05/04 ENCOUNTER; I [facility] SUBJECTIVE: Patient seen and examined; NO NEW COMPLAINTS. DISCUSSED ABX WITH ID AND WILL DO 14 DAY COURSE PO FULL DOSE AUGMENTIN. 10 SYS ROS DONE AND NEGATIVE ASIDE FROM HPI OBJECTIVE: GENERAL: The patient is awake, alert, and fully oriented, in no acute distress. HEAD: Normal with no signs of trauma. EYES: PERRL, extraocular movements intact, sclera anicteric, conjunctiva clear. ENT: Ears normal, nares patent, oropharynx clear without exudates, moist mucous membranes. NECK: Trachea midline, full range of motion, supple. LUNGS: Breath sounds equal, clear to auscultation bilaterally, no wheezes, no crackles, no accessory muscle use. HEART: Regular rate and rhythm, S1, S2 without murmur, rub or gallop. ABDOMEN: Soft, nontender, nondistended, normoactive bowel sounds, no guarding, no rebound, no hepatosplenomegaly, no masses. EXTREMITIES: 2+ pulses, warm, well-perfused, no edema. NEUROLOGICAL: Cranial nerves II through XII grossly intact. Normal speech, gait not observed. PSYCH: Normal mood, normal affect. SKIN: Warm, dry, normal turgor, no rashes or lesions noted. LABS Microbiology 05/01/19 13:00 Urine - Urine Clean Catch Urine Culture - Final Enterococcus Faecalis Laboratory Tests 05/01/19 05/01/19 05/01/19 11:10 11:12 11:38 WBC RBC Hgb Hct MCV MCH MCHC RDW Plt Count MPV Absolute Neuts (auto) Neutrophils % Lymphocytes % Monocytes % Eosinophils % Basophils % Nucleated RBC % ESR PT with INR INR PTT (Actin FS) Sodium 142 Potassium 3.7 Chloride 107 Carbon Dioxide 26 Anion Gap 9 BUN 13.0 Creatinine 0.7 Est GFR (CKD-EPI)AfAm 136.66 Est GFR (CKD-EPI)NonAf 117.91 Random Glucose 90 Lactic Acid Calcium 9.4 Phosphorus Magnesium Total Bilirubin 0.3 AST 32 ALT 44 Alkaline Phosphatase 94 C-Reactive Protein Total Protein 8.2 Albumin 4.0 Urine Color Red Urine Appearance Bloody Urine pH Ur Specific [place] Urine Protein Urine Glucose (UA) Urine Ketones Urine Blood Urine Nitrite Urine Bilirubin Urine Urobilinogen Ur Leukocyte Esterase Urine WBC (Auto) 178.9 Urine RBC (Auto) 7002 Urine Casts (Auto) 0 U Pathogenic Cast Auto None seen U Epithel Cells (Auto) 0.9 U Sm Round Cell (Auto) None seen Urine Crystals (Auto) None seen Urine Bacteria (Auto) 2.7 Urine Yeast (Auto) None seen Urine HCG, Qual Negative 05/01/19 05/01/19 05/01/19 11:40 11:40 12:00 WBC 8.0 RBC 4.36 Hgb 13.1 Hct 39.0 D MCV 89.5 MCH 30.1 MCHC 33.6 RDW 13.4 Plt Count 317 D MPV 8.6 Absolute Neuts (auto) 5.5 Neutrophils % 68.7 Lymphocytes % 24.8 D Monocytes % 5.2 Eosinophils % 0.6 Basophils % 0.7 D Nucleated RBC % 0 ESR PT with INR 13.50 H Cancelled INR 1.14 H Cancelled PTT (Actin FS) 31.4 Sodium Potassium Chloride Carbon Dioxide Anion Gap BUN Creatinine Est GFR (CKD-EPI)AfAm Est GFR (CKD-EPI)NonAf Random Glucose Lactic Acid Calcium Phosphorus Magnesium Total Bilirubin AST ALT Alkaline Phosphatase C-Reactive Protein Total Protein Albumin Urine Color Urine Appearance Urine pH Ur Specific [place] Urine Protein Urine Glucose (UA) Urine Ketones Urine Blood Urine Nitrite Urine Bilirubin Urine Urobilinogen Ur Leukocyte Esterase Urine WBC (Auto) Urine RBC (Auto) Urine Casts (Auto) U Pathogenic Cast Auto U Epithel Cells (Auto) U Sm Round Cell (Auto) Urine Crystals (Auto) Urine Bacteria (Auto) Urine Yeast (Auto) Urine HCG, Qual 05/01/19 05/02/19 05/02/19 21:00 06:39 06:39 WBC 4.0 RBC 3.24 L Hgb 9.8 L Hct 28.4 L D MCV 87.8 MCH 30.2 MCHC 34.4 RDW 13.2 Plt Count 248 D MPV 8.3 Absolute Neuts (auto) 1.8 Neutrophils % 44.8 D Lymphocytes % 44.0 H D Monocytes % 7.5 Eosinophils % 2.9 D Basophils % 0.8 Nucleated RBC % 0 ESR PT with INR INR PTT (Actin FS) Sodium 144 Potassium 3.4 L Chloride 113 H Carbon Dioxide 25 Anion Gap 6 L BUN 8.0 Creatinine 0.4 L Est GFR (CKD-EPI)AfAm 164.28 Est GFR (CKD-EPI)NonAf 141.74 Random Glucose 87 Lactic Acid 1.6 Calcium 8.3 L Phosphorus 3.2 Magnesium 2.0 Total Bilirubin 0.4 AST 16 ALT 29 Alkaline Phosphatase 66 C-Reactive Protein Total Protein 5.5 L Albumin 2.7 L Urine Color Urine Appearance Urine pH Ur Specific [place] Urine Protein Urine Glucose (UA) Urine Ketones Urine Blood Urine Nitrite Urine Bilirubin Urine Urobilinogen Ur Leukocyte Esterase Urine WBC (Auto) Urine RBC (Auto) Urine Casts (Auto) U Pathogenic Cast Auto U Epithel Cells (Auto) U Sm Round Cell (Auto) Urine Crystals (Auto) Urine Bacteria (Auto) Urine Yeast (Auto) Urine HCG, Qual 05/02/19 05/03/19 05/03/19 10:55 09:55 09:55 WBC 5.1 RBC 3.72 Hgb 11.3 Hct 32.6 MCV 87.7 MCH 30.4 MCHC 34.7 RDW 13.3 Plt Count 294 MPV 8.0 Absolute Neuts (auto) 2.9 Neutrophils % 57.7 D Lymphocytes % 31.6 D Monocytes % 6.1 Eosinophils % 3.8 Basophils % 0.8 Nucleated RBC % 0 ESR 36 H PT with INR INR PTT (Actin FS) Sodium 142 Potassium 3.8 Chloride 108 H Carbon Dioxide 27 Anion Gap 8 BUN 9.3 Creatinine 0.6 Est GFR (CKD-EPI)AfAm 143.77 Est GFR (CKD-EPI)NonAf 124.04 Random Glucose 87 Lactic Acid Calcium 9.1 Phosphorus Magnesium Total Bilirubin AST ALT Alkaline Phosphatase C-Reactive Protein 2.5 H Total Protein Albumin Urine Color Yellow Urine Appearance Clear Urine pH 7.0 D Ur Specific [place] 1.013 Urine Protein 1+ H Urine Glucose (UA) Negative Urine Ketones Negative Urine Blood 3+ H Urine Nitrite Negative Urine Bilirubin Negative Urine Urobilinogen 0.2 Ur Leukocyte Esterase 2+ H Urine WBC (Auto) 32 Urine RBC (Auto) 208 Urine Casts (Auto) 7 U Pathogenic Cast Auto U Epithel Cells (Auto) 3.7 U Sm Round Cell (Auto) Urine Crystals (Auto) Urine Bacteria (Auto) 7.9 Urine Yeast (Auto) Urine HCG, Qual HOSPITAL COURSE: Patient was seen in the hosptial for a complicated UTI involving suspected involvement of stent from prior renal stone. Urology saw and stated that they would remove the stent as an outpatient as jennifer. ID placed on broad spectrum abx initially then downgraded to PO upon DC. She remained hemodynamically stable. Verbalized understanding of all instructions and when to return to the hospital. 33 mintues spent on DC including face to face counseling. CT and US reviewed; no indication of obstruction or pyelo Date of Admission:05/01/19 Date of Discharge: 05/04/19 FOLLOWUPS PER DC INSTRUCTIONS Minutes to complete discharge: 33 Discharge Summary Problems reviewed: Yes Reason For Visit: UTI ABDOMINAL PAIN Condition: Good - Instructions Diet, Activity, Other Instructions: You were admitted to the hospital for evaluation of your abdominal pain. You were noted to have a urinary tract infecion, and treated with antibiotics You are being discharged home. Take antibiotic Levaquin 750mg daily for 11 days. Follow up with your primary care physician within 3-5 days after discharge Follow up with infectious disease physician Dr. López within one week of discharge. Follow up with urology within one week of discharge. Return to the nearest Emergency department if you experience worsening symptoms , subjective fevers, chills, shortness of breath, chest pain ,palpitations, abdominal pain, nausea, vomiting. Referrals: Jonah López MD [Staff Physician] - 1 Week Sachin Honrer MD [Staff Physician] - ([facility] FOR PROCEDURE WE WILL ALSO CONTACT YOU IN THE COMING DAY OR TWO) Madeleine Olivas MD [Primary Care Provider] - (3-5 DAYS) Disposition: HOME - Home Medications Comprehensive Discharge Medication List: Ambulatory Orders Ampicillin Trihydrate 500 mg PO Q6H 11 Days #40 capsule 05/04/19 This patient is new to me today: No Emergency Visit: Yes ED Registration Date: 05/01/19 Care time: The patient presented to the Emergency Department on the above date and was hospitalized for further evaluation of their emergent condition. Critical Care patient: No - Discharge Referral Referred to [id number] Yes Physician Referral: Ferdinand Gates MD (Int Med) ([facility])
== END 2019-05-04 11:41 | disposition home or self-care (01) | DRG 466 ==
LOC: JER 10:23 → JERBED 16:19 → J7W 20:39
PROVIDERS: ADMIT Internal Medicine; ATTEND Internal Medicine
DX: T83.593A Infection and inflammatory reaction due to other urinary stents, initial encounter (principal); N39.0 Urinary tract infection, site not specified; J90 Pleural effusion, not elsewhere classified; R50.9 Fever, unspecified; R10.9 Unspecified abdominal pain; R31.9 Hematuria, unspecified; Y83.9 Surgical procedure, unspecified as the cause of abnormal reaction of the patient, or of later complication, without mention of misadventure at the time of the procedure; N20.0 Calculus of kidney; N20.1 Calculus of ureter
CPT/HCPCS: 36415; 74177-TC; 80048; 80053; 81003; 83605; 83735; 84100; 84703; 85025; 85610; 85651; 85730; 86140; 87086; 87186; 93005; 93010; 99284-25; J7030; Q2036; Q9967

== ENCOUNTER → 2019-05-11 | Day surgery (SDC) | payer OTHER ==
[2019-05-10 13:56] VITALS: BMI 23.3
[~2019-05-11] MED LIST: ACETAMINOPHEN 1000 MG/100 ML VIAL (NON FORMULARY) IVPB ONE; ACETAMINOPHEN INJECTION 100 ML IVPB ONE; IOHEXOL 300 MG/ML INFUS..BTL IV ONE; LIDOCAINE HCL/PF 2% SDV 5ML VIAL ONE; MIDAZOLAM HCL 2 MG/2 ML SINGLE DOSE VIAL ONE; ONDANSETRON 4 MG/2 ML VIAL IVPUSH PRN; PROMETHAZINE HCL 25 MG/1 ML VIAL IVPUSH PRN; PROPOFOL 20 ML ONE; SUCCINYLCHOLINE CHLORIDE 200 MG/10 ML SYRINGE ONE; ceFAZolin 2 GRAM PREMIX BAG IVPB ONE; oxyCODONE HCL 5 MG TABLET PO PRN
--- NOTE | 2019-05-11 08:04 | HP ---
History & Physical Update - History History: No Change - Physical Physical: No Change - Assessment Assessment: No Change - Plan Plan: No Change
--- NOTE | 2019-05-11 08:06 | OP ---
Operative Note - Note: Operative Date: 05/11/19 Pre-Operative Diagnosis: R ureteral calculus Operation: R ureteroscopy and JJ stent change Findings: R ureteral calculus Post-Operative Diagnosis: Same as Pre-op (passed) Surgeon: Sachin Horner Anesthesiologist/PIPE PRODUCTION WORKER: Osvaldo Jackson Anesthesia: General Specimens Removed: R JJ stent Estimated Blood Loss (mls): 0 Drains & Tubes with Location: 6 fr 22 cm R JJ stent Operative Report Dictated: Yes
--- NOTE | 2019-05-11 10:27 | OP ---
DATE OF OPERATION: 05/11/2019 PREOPERATIVE DIAGNOSIS: Right ureteral calculus. POSTOPERATIVE DIAGNOSIS: Right ureteral calculus (passed). PROCEDURE: Right ureteroscopy and double J stent change. SURGEON: Sachin Horner MD RECOATING MACHINE OPERATOR: None. ANESTHESIA: General via laryngeal mask. ANESTHESIOLOGIST: Osvaldo Jackson MD SPECIMEN: Right double J stent. CULTURES: None. DRAINS: A 6-Egyptian 22-cm right double J stent. ESTIMATED BLOOD LOSS: None. COMPLICATIONS: None. DESCRIPTION OF PROCEDURE: Patient was brought into the operating room, placed on the operating room table in a supine position. After administration of general anesthesia via laryngeal mask, intravenous antibiotics were administered. Sequential compression devices were placed. Patient was placed in dorsal lithotomy position. The perineum and vagina were prepped and draped in the usual sterile manner. A 22-Egyptian cystoscope was inserted into the bladder under direct vision. The urine was evacuated, and cystoscopy was performed. This demonstrated no tumors, stones, or inflammation. Right double J stent was in good position. The right double J stent was grasped at its tip, brought to the urethral meatus, and cannulated with a 0.035 guidewire, which was advanced to the level of the right renal pelvis under fluoroscopic guidance. Double J stent was removed and sent to Pathology as specimen. Bladder was emptied. Cystoscope removed. The semirigid ureteroscope was now inserted alongside the guidewire all the way to the level of the ureteropelvic junction. No stones were seen. Retrograde pyelogram was done. Demonstrated no filling defects, no hydronephrosis. The ureteroscope was remove reinspecting the entire course of the ureter again. No stones were seen. Now a 6-Egyptian 22-cm right double-J stent was inserted over the guidewire under fluoroscopic guidance leaving 1 coil in the renal pelvis and 1 coil in the bladder. The bladder was emptied and procedure was done. The stent was secured to the patient's thigh with a suture and a Tegaderm. Tolerated the procedure well. Transferred to the recovery room in stable condition. Dionne [id number]
[2019-05-11 11:06] VITALS: TEMP 97.9
[2019-05-11 13:02] VITALS: BP 123/63; PULSE 76
--- NOTE | 2019-05-14 17:54 | PATH ---
Surgical Pathology Report Patient Name: MABEL HARTLEY Med. Rec. #: [id number] /Age/Gender: 1990 (Age: 28) / F Account: [id number] [facility]: [facility] MED/SURG Taken: 05/11/2019 Received: 05/11/2019 Reported: 05/14/2019 Physicians: Sachin Horner M.D. Specimen(s) Received OLD URETERAL STENT, RIGHT Clinical History Right ureteral calculus Final Diagnosis OLD URETERAL STENT, RIGHT, REMOVAL: URETERAL STENT. MACROSCOPIC DIAGNOSIS. Electronically Signed Wanda Connelly M.D. Gross Description Received fresh labeled "old ureteral stent right," is a 33 cm in length blue-green, coiled portion of tubing, consistent with a ureteral stent. No soft tissue is present. No sections are submitted, gross only. DL/05/11/2019 saudi/05/11/2019
== END | disposition home or self-care (01) ==
LOC: JASU-SURG 06:05
PROVIDERS: ATTEND Urology
PROC: 0T768DZ Dilation of Right Ureter with Intraluminal Device, Via Natural or Artificial Opening Endoscopic (ICD-10-PCS; principal; 2019-05-11 08:00)
DX: N20.1 Calculus of ureter (principal)
CPT/HCPCS: 36415; 76000-TC-FY; 84702; 88300-TC; 94760; J0131

== ENCOUNTER 2019-09-11 06:15 | Day surgery (SDC) | payer OTHER ==
[2019-09-10 15:58] VITALS: BMI 23.3
--- NOTE | 2019-09-11 07:33 | HP ---
History & Physical Update - History History: No Change - Physical Physical: No Change - Assessment Assessment: No Change - Plan Plan: No Change
--- NOTE | 2019-09-11 07:34 | OP ---
Operative Note - Note: Operative Date: 09/11/19 Pre-Operative Diagnosis: R renal calculus Operation: ESWL R Findings: R renal calculus Post-Operative Diagnosis: Same as Pre-op Surgeon: Sachin Horner Anesthesiologist/CULTURIST: Tess Bergman MD Anesthesia: Fractional Estimated Blood Loss (mls): 0 Operative Report Dictated: Yes
--- NOTE | 2019-09-11 08:13 | OP ---
DATE OF OPERATION: 09/11/2019 PREOPERATIVE DIAGNOSIS: Right renal calculus. POSTOPERATIVE DIAGNOSIS: Right renal calculus. PROCEDURE PERFORMED: Extracorporeal shock wave lithotripsy of right renal calculus. SURGEON: Sachin Owen M.D. PHYSICIAN ASSISTANT SURGERY: None. ANESTHESIA: IV sedation. ANESTHESIOLOGIST: Tess Bergman M.D. SPECIMENS: None. CULTURES: None. DRAINS: None. ESTIMATED BLOOD LOSS: None. COMPLICATIONS: None. DESCRIPTION OF PROCEDURE: The patient was brought into the operating room and placed on the operating table in the supine position. After the administration of intravenous sedation, the patient was positioned over the treatment head and under fluoroscopic guidance, the right lower pole renal calculus, approximately 5 mm, was identified, targeted and delivered 2500 shocks at maximum kilovoltage, with excellent fragmentation. She tolerated the procedure well and was transferred to the recovery room in stable condition. SACHIN OWEN M.D. [id number]
[2019-09-11 08:35] VITALS: TEMP 98.1
[2019-09-11] MEDS ORDERED: ACETAMINOPHEN 325 MG TABLET (FP) PO ONE (11:55)
[2019-09-11] MEDS ORDERED: ACETAMINOPHEN 325 MG TABLET (FP) ONE (11:56)
[2019-09-11 13:00] VITALS: BP 105/67; PULSE 67
== END 2019-09-11 12:15 | disposition home or self-care (01) ==
LOC: JASU-SURG 06:15
PROVIDERS: ATTEND Urology
PROC: 0TF3XZZ Fragmentation in Right Kidney Pelvis, External Approach (ICD-10-PCS; principal; 2019-09-11 07:30)
DX: N20.0 Calculus of kidney (principal)
CPT/HCPCS: 84703

== ENCOUNTER 2020-09-30 18:35 | Inpatient (IN) | payer OTHER ==
[2020-09-30] MEDS ORDERED: BUTORPHANOL TARTRATE 1 MG/ML VIAL IVPB ONE (19:12)
[2020-09-30] MEDS ORDERED: PROMETHAZINE HCL 25 MG/1 ML VIAL IVPUSH ONE (19:12)
[2020-09-30] MEDS ORDERED: SODIUM PHOSPHATE/NA BIPHOS 133 ML ENEMA PR ONE (19:17)
[2020-09-30] MEDS ORDERED: DINOPROSTONE 10 MG VAGINAL SUPPOSITORY VG ONE (19:18)
[2020-09-30 21:59] VITALS: BMI 29.7
[2020-09-30 22:14] LABS: BASO % 0.2 % (0-2.0); EOS % 0.7 % (0-4.5); HEMATOCRIT 34.6 % (32.4-45.2); HEMOGLOBIN 11.9 GM/dL (10.7-15.3); LYMPH % 23.3 % (8-40); MCH 31.8 pg (25.7-33.7); MCHC 34.4 g/dl (32.0-36.0); MEAN CELL VOLUME 92.6 fl (80-96); MEAN PLT VOLUME 8.7 fl (7.5-11.1); MONO % 8.2 % (3.8-10.2); NEUT % 67.6 % (42.8-82.8); PLATELET COUNT 236 K/MM3 (134-434); RBC 3.74 M/mm3 (3.60-5.2); WHITE BLOOD COUNT 8.3 K/mm3 (4.0-10.0)
[2020-09-30 22:20] LABS: INR 0.97 (0.83-1.09); PROTHROMBIN TIME (PATIENT) 11.7 SEC (9.7-13.0)
[2020-09-30 22:22] LABS: ACTIVATED PTT 25.3 SECONDS (25.2-36.5)
[2020-09-30 22:31] LABS: POTASSIUM 4.1 mmol/L (3.5-5.1)
[2020-09-30 22:32] LABS: CALCIUM 8.9 mg/dL (8.5-10.1)
[2020-09-30 22:33] LABS: BLOOD UREA NITROGEN 6.8 mg/dL (7-18)
[2020-09-30 22:37] LABS: CREATININE 0.5 mg/dL (0.55-1.3)
[2020-09-30 22:44] LABS: EPI CELLS 18 /uL (0-25.1); HYALINE CASTS 1 /uL (0-3.1); URINE APPEARANCE CLEAR; URINE BACTERIA 225 /uL (0-1359); URINE BILIRUBIN NEGATIVE (NEGATIVE); URINE COLOR YELLOW; URINE GLUCOSE (UA) NEGATIVE (NEGATIVE); URINE KETONE TRACE (NEGATIVE); URINE LEUK ESTERASE TRACE (NEGATIVE); URINE NITRITE NEGATIVE (NEGATIVE); URINE PROTEIN NEGATIVE (NEGATIVE); URINE RBC 44 /uL (0-23.9); URINE UROBILINOGEN 0.2 mg/dL (0.2-1.0); URINE WBC 84 /uL (0-25.8)
[2020-09-30 22:52] LABS: URINE BARBITURATES NEGATIVE ng/ml (CUTOFF=200); URINE BENZODIAZEPINES NEGATIVE ng/ml (CUTOFF=200)
[2020-09-30 22:53] LABS: METHADONE, UR NEGATIVE ng/ml (CUTOFF=300)
[2020-09-30 22:54] LABS: PHENCYCLIDINE,URINE NEGATIVE ng/ml (CUTOFF=25)
[2020-09-30 22:55] LABS: COCAINE, UR NEGATIVE ng/ml (CUTOFF=300); OPIATES, URI NEGATIVE ng/ml (CUTOFF=300); URINE AMPHETAMINES NEGATIVE ng/ml (CUTOFF=500)
[2020-10-01] MEDS ORDERED: AMPICILLIN SODIUM 2 GM VIAL ONE (05:26)
[2020-10-01] MEDS ORDERED: SODIUM CHLORIDE 100 ML IVPB ONE (05:26)
[2020-10-01] MEDS: DEXTROSE 5%-LACTATED RINGERS 1,000 ML IV SCH ×2 (05:27→20:00)
[2020-10-01] MEDS ORDERED: AMPICILLIN - 2 GM in SODIUM CHLORIDE 100 ML IVPB ONE (06:00)
[2020-10-01] MEDS: AMPICILLIN - 1 GM in SODIUM CHLORIDE 100 ML IVPB SCH ×4 (10:00→22:10)
[2020-10-01] MEDS ORDERED: AMPICILLIN SODIUM 1 GM VIAL ONE ×2 (16:07→22:10)
[2020-10-02] MEDS: MISOPROSTOL 25 MCG TABLET (COMPOUNDED BY PHARMACY) PO SCH ×3 (09:15→17:50)
[2020-10-02] MEDS ORDERED: OXYTOCIN 30 UNITS in 0.9% NS 30 UNIT/500 ML INFUS.BAG IVPB ONE (14:17)
[2020-10-02] MEDS: OXYTOCIN 30 UNITS in 0.9% NS 30 UNIT/500 ML INFUS.BAG IVPB SCH (14:23)
[2020-10-02] MEDS ORDERED: AMPICILLIN SODIUM 1 GM VIAL ONE ×2 (15:54→19:56)
[2020-10-02] MEDS ORDERED: PCA PUMP NR ONE (16:27)
[2020-10-02] MEDS ORDERED: FENTANYL/BUPIVACAINE/NS/PF - PCEA - 50 ML DISP.SYRIN EP ONE ×2 (16:27→21:26)
[2020-10-02] MEDS: ELECTROLYTE-148 SOLN 1,000 ML IV SCH (16:30)
[2020-10-02] MEDS ORDERED: AMPICILLIN - 2 GM in SODIUM CHLORIDE 100 ML IVPB ONE ×4 (16:34→17:00)
[2020-10-02] MEDS: FENTANYL/BUPIVACAINE/NS/PF - PCEA - 50 ML DISP.SYRIN EP SCH (17:00)
[2020-10-02] MEDS ORDERED: SODIUM CHLORIDE 0.9% P/F 10 ML VIAL IJ ONE (17:31)
[2020-10-02] MEDS ORDERED: ePHEDrine SULFATE 50 MG/1 ML AMPULE ONE (17:31)
[2020-10-02] MEDS ORDERED: NALOXONE HCL 0.4 MG/ML VIAL IVPUSH PRN (17:37)
[2020-10-02] MEDS: AMPICILLIN - 1 GM in SODIUM CHLORIDE 100 ML IVPB SCH ×2 (18:32→20:01)
[2020-10-02] MEDS ORDERED: OXYTOCIN 20 UNITS in 0.9% NS 20 UNIT/1,000 ML INFUS.BAG IV ONE (22:41)
[2020-10-02] MEDS: METHYLERGONOVINE MALEATE 0.2 MG/1 ML AMP IM PRN ×2 (22:55→23:50)
[2020-10-02] MEDS: ACETAMINOPHEN 325 MG TABLET (FP) PO PRN (23:35)
[2020-10-02] MEDS: IBUPROFEN 600 MG TABLET (FP) PO PRN (23:35)
[2020-10-02] MEDS ORDERED: ACETAMINOPHEN 325 MG TABLET (FP) ONE (23:41)
[2020-10-02] MEDS ORDERED: IBUPROFEN 600 MG TABLET (FP) PO ONE (23:41)
[2020-10-02] MEDS ORDERED: WITCH HAZEL 50% (TUCKS) 40 PAD/JAR PAD TP PRN (23:58)
[2020-10-02] MEDS ORDERED: BISACODYL 10 MG SUPP.RECT RC PRN (23:58)
[2020-10-02] MEDS ORDERED: BENZOCAINE 28 GM HEMORRHOIDAL OINTMENT TP PRN (23:58)
[2020-10-02] MEDS ORDERED: BENZOCAINE 20% 57 GM BOTTLE TP PRN (23:58)
[2020-10-03] MEDS ORDERED: OXYTOCIN 20 UNITS in 0.9% NS 20 UNIT/1,000 ML INFUS.BAG IV SCH
[2020-10-03 01:40] LABS: CORD HCO3 18.1 mmHg (20-29); CORD HCO3 20.2 mmHg (20-29); CORD PCO2 41.6 mmHg (30-78); CORD PCO2 42.4 mmHg (30-78); CORD pH 7.248 (7.14-7.44); CORD pH 7.305 (7.14-7.44)
[2020-10-03] MEDS: AMPICILLIN - 1 GM in SODIUM CHLORIDE 100 ML IVPB SCH (03:00)
[2020-10-03] MEDS: IBUPROFEN 600 MG TABLET (FP) PO PRN ×4 (03:06→21:55)
[2020-10-03] MEDS: ACETAMINOPHEN 325 MG TABLET (FP) PO PRN ×4 (03:06→21:56)
[2020-10-03] MEDS ORDERED: oxyCODONE HCL 5 MG TABLET PO PRN (07:28)
[2020-10-03 08:51] LABS: BASO % 0.4 % (0-2.0); LYMPH % 8.5 % (8-40); MCH 30.9 pg (25.7-33.7); MCHC 33.5 g/dl (32.0-36.0); MEAN CELL VOLUME 92.1 fl (80-96); MEAN PLT VOLUME 9.1 fl (7.5-11.1); MONO % 7.5 % (3.8-10.2); NEUT % 83.6 % (42.8-82.8); PLATELET COUNT 176 K/MM3 (134-434); RBC 3.58 M/mm3 (3.60-5.2); RDW 13.9 % (11.6-15.6); WHITE BLOOD COUNT 18.3 K/mm3 (4.0-10.0)
[2020-10-03] MEDS: MISOPROSTOL 25 MCG TABLET (COMPOUNDED BY PHARMACY) PO SCH (09:28)
[2020-10-03] MEDS: DEXTROSE 5%-LACTATED RINGERS 1,000 ML IV SCH (09:29)
[2020-10-03] MEDS: PRENATAL VITAMINS W/ FOLIC ACID TABLET (FP) PO SCH (10:21)
[2020-10-03] MEDS: FERROUS SO4 325 MG TABLET (FP) PO SCH ×2 (10:22→21:56)
[2020-10-03] MEDS: FENTANYL/BUPIVACAINE/NS/PF - PCEA - 50 ML DISP.SYRIN EP SCH (19:00)
[2020-10-03] MEDS: ELECTROLYTE-148 SOLN 1,000 ML IV SCH (19:00)
[2020-10-03] MEDS: OXYTOCIN 30 UNITS in 0.9% NS 30 UNIT/500 ML INFUS.BAG IVPB SCH (19:00)
[2020-10-03] MEDS ORDERED: SENNOSIDES/DOCUSATE COMBO (SENNA PLUS) TABLET (UD) PO PRN (22:00)
[2020-10-04] MEDS: FERROUS SO4 325 MG TABLET (FP) PO SCH (10:15)
[2020-10-04] MEDS: PRENATAL VITAMINS W/ FOLIC ACID TABLET (FP) PO SCH (10:15)
[2020-10-04 14:58] VITALS: BP 110/64; PULSE 64; TEMP 98.3
== END 2020-10-04 13:45 | disposition home or self-care (01) | DRG 560 ==
LOC: JLDR 18:35 → J3W 10-03 02:22
PROVIDERS: ADMIT Obstetrics & Gynecology; ATTEND Obstetrics & Gynecology
PROC: 3E0P7VZ Introduction of Hormone into Female Reproductive, Via Natural or Artificial Opening (ICD-10-PCS; 2020-09-30)
PROC: 10E0XZZ Delivery of Products of Conception, External Approach (ICD-10-PCS; principal; 2020-10-03)
PROC: 3E033VJ Introduction of Other Hormone into Peripheral Vein, Percutaneous Approach (ICD-10-PCS; 2020-10-03)
PROC: 10907ZC Drainage of Amniotic Fluid, Therapeutic from Products of Conception, Via Natural or Artificial Opening (ICD-10-PCS; 2020-10-03)
PROC: 10H073Z Insertion of Monitoring Electrode into Products of Conception, Via Natural or Artificial Opening (ICD-10-PCS; 2020-10-03)
DX: O48.0 Post-term pregnancy (principal); O99.824 Streptococcus B carrier state complicating childbirth; O99.892 Other specified diseases and conditions complicating childbirth; R00.1 Bradycardia, unspecified; R07.81 Pleurodynia; O77.0 Labor and delivery complicated by meconium in amniotic fluid; O69.81X0 Labor and delivery complicated by cord around neck, without compression, not applicable or unspecified; Z86.2 Personal history of diseases of the blood and blood-forming organs and certain disorders involving the immune mechanism; Z87.440 Personal history of urinary (tract) infections; Z87.442 Personal history of urinary calculi; Z3A.40 40 weeks gestation of pregnancy; Z37.0 Single live birth
CPT/HCPCS: 36415; 36600; 59409; 80048; 80307; 81003; 82803; 85025; 85610; 85730; 86780; 86850; 86900; 86901; 93005; 93010; C9803; U0003